=== PATIENT | female | born 1940 | race Caucasian/White ===

== ENCOUNTER 2019-08-14 11:26 | Emergency (ER) | payer MEDICARE, MEDICAID, SELFPAY ==
[2019-08-14 11:31] VITALS: BP 197/127; PULSE 72; RESP 18; TEMP 36.7; O2SAT 97; BMI 30.7
--- NOTE | 2019-08-14 11:43 | ED_ITS ---
Entered by Freya Berg, acting as scribe for Oswaldo Caballero MD, [facility] HPI - Abdominal Pain General: Chief Complaint: Abdominal Pain Stated Complaint: HTN, abd pain, nausea Time Seen by Provider: 08/14/19 11:43 Source: patient, family and RN notes reviewed Mode of arrival: ambulatory Limitations: no limitations History of Present Illness: HPI narrative: 79 yo female presents to ED with complaints of abdominal pain and nausea. Per the patient, she was seen at the [facility] clinic this morning and was sent to the ED due to her blood pressure being so high. The patient does have a headache associated with her high blood pressure (she said it has been high for 2 days). She said she woke with the abdominal pain in the middle of the night last night. The abdominal pain is now resolved but she has nausea and still has the headache. The patient states she had acid reflux so bad last month that it went into her lungs. She said she finally quit wheezing but she still had a cough so her doctor put her on antibiotics for 10 days (which she finished on 08.12.2019. The patient denies any other symptoms at this time. She took a peptobismol which relieved her abdominal pain. MD elicited complaint: abdominal pain and other (headache, nausea) Pertinent past history: other (acid reflux) Onset (ago): day(s) (1 (middle of night)) Pain Consistency: intermittent Location: Diffuse Severity: moderate Quality: aching Radiation: none Migration to: no migration Exacerbating factors: nothing Relieving factors: nothing Associated Symptoms: Reports nausea and other (headache); Denies chills, dysuria and fever(s) Related Data: Patient : No Review of Systems General: Reports: 10 or more systems reviewed and unremarkable except in HPI and below Const: Denies: fever, chills or body aches Eyes: Reports: blind spots; Denies: change in vision or blurry vision ENMT: Denies: throat pain, enlarged tonsils, painful swallowing, hoarseness, mouth pain or swelling of lips/tongue Card: Reports: chest pain; Denies: palpitations, irregular heart rhythm, edema or swelling of feet/ankles Resp: Denies: shortness of breath, productive cough or non-productive cough GI: Reports: nausea and other (headache) : Denies: flank pain, difficulty urinating, painful urination, urinary frequency, urinary urgency or urinary hesitancy Musc: Denies: neck pain, back pain or extremity swelling Skin/Breast: Denies: rash, itching or redness Neuro: Denies: numbness in extremities or weakness in extremities Endo: Denies: excessive urination, excessive thirst or tired all the time PFSH ED PFSH: Medical History (Updated 08/14/19 @ 13:50 by Oswaldo Caballero MD, [facility]) Abdominal pain Hypertensive urgency Nausea Family History (Updated 08/14/19 @ 10:07 by Rebeca Leary LPN) Son Hypertension Daughter Hypertension Social History (Updated 08/14/19 @ 10:08 by Rebeca Leary LPN) Smoking and tobacco status: never smoked Alcohol intake: never Physical Exam Const: COMMON NORMALS: no apparent distress, average body habitus, oriented x3, no limitations, healthy appearing, alert and well nourished HENMT: COMMON NORMALS: normocephalic, head/scalp atraumatic and moist oral mucous membranes HEAD & SCALP: normocephalic and atraumatic Eye: COMMON NORMALS: PERRL, EOMs intact bilaterally, conjunctivae normal and no scleral icterus CONJUNCTIVA: Yes conjunctivae normal PUPIL: Yes PERRL Neck/C-Spine: COMMON NORMALS: full ROM, supple, no meningeal signs, no JVD and no carotid bruits Chest: COMMONS NORMALS: inspection of chest normal and palpation of chest normal Resp: COMMON NORMALS: normal respiratory effort, no retractions, no use of accessory muscles, clear to auscultation bilaterally and percussion normal AUSCULTATION: clear to auscultation bilaterally PERCUSSION: percussion normal Cardio: COMMON NORMALS: no JVD, regular rate, regular rhythm, S1 normal heart sound, S2 normal heart sound, no gallops, no clicks, no murmurs, no rub and peripheral pulses 2+ throughout RATE: regular rate RHYTHM: regular rhythm HEART SOUNDS: S1 normal and S2 normal PERIPHERAL PULSES: pulses 2+ throughout GI: COMMON NORMALS: normal to inspection, nondistended, normoactive bowel sounds, soft to palpation, non-tender, no hepatosplenomegaly, no masses and no bruits PALPATION: Yes soft and Yes no hepatosplenomegaly : COMMON NORMALS: Yes no CVA tenderness BLADDER/KIDNEY EXAM: Yes no CVA tenderness Back/Pelvis: COMMON NORMALS: no CVA tenderness Extremity: COMMON NORMALS: normal to inspection, full ROM, normal capillary refill, no calf tenderness and no pedal edema Neuro: COMMON NORMALS: oriented x3 SENSORIUM/ORIENTATION: Yes alert MENINGEAL SIGNS: Yes no meningeal signs Skin: COMMON NORMALS: no rashes or lesions noted, no wounds, skin turgor normal, no jaundice, no petechiae and no mottling GENERAL SKIN EXAM: no rashes or lesions noted and turgor normal Course Reevaluation(s): Reevaluation #1: Discussed her lab and imaging findings with her. Ultrasound negative for an aneurysm. Chest x-ray negative. Labs unremarkable including a negative troponin. I explained to her elevated blood pressure was probably related to her abdominal pain which was likely gastritis. Blood pressure is much improved and I am comfortable sending her home. She voiced understanding and is in agreement with the plan. Time: 13:43 Vital Signs: Vital signs: Vital Signs Temperature 98.1 F 08/14/19 11:31 Pulse Rate 72 08/14/19 11:31 Respiratory Rate 18 08/14/19 11:31 Blood Pressure 197/127 08/14/19 11:31 Pulse Oximetry 97 08/14/19 11:31 MDM - Abdominal Pain MDM Narrative: Medical decision making narrative: 79-year-old female patient who was sent to the emergency department with concerns of a possible AAA. She had abdominal pain, epigastric, and a clinic provider heard an abdominal bruit. Evaluation here in the emergency department was unremarkable including a negative AAA ultrasound, chest x-ray, troponin and negative lipase. Blood pressure improved without intervention. I believe her blood pressure elevation was secondary to abdominal pain which itself was from GERD. I will therefore discharge her home with no new orders. She already takes a PPI. She is to follow-up with her primary care provider Medical Records: Attestation: I reviewed the patient's medical records. Lab Data: Attestation: I reviewed the patient's lab results. Labs: Lab Results 08/14/19 08/14/19 08/14/19 Range/Units 11:51 11:51 11:51 WBC 7.5 (4.0-10.0) 10^3/ uL RBC 4.27 (4.1-5.3) 10^6/u L Hgb 13.4 (11.5-15.3) g/dL Hct 39.4 (37.0-47.0) % MCV 92.3 (81-99) fL MCH 31.4 (28.0-34.0) pg MCHC 34.0 (30.0-36.0) g/dL RDW 13.3 (12.1-15.1) % Plt Count 240 (130-400) 10^3/c mm MPV 10.3 (7.4-10.4) fL Neut % (Auto) 57.1 % Lymph % (Auto) 29.8 % [place] % (Auto) 6.6 % Eos % (Auto) 6.3 % Baso % (Auto) 0.1 % Neut # (Auto) 4.3 (1.8-7.7) 10^3/u L Lymph # (Auto) 2.2 (0.8-4.8) 10^3/u L [place] # (Auto) 0.5 (0.2-0.9) 10^3/u L Eos # (Auto) 0.5 (0.0-0.8) 10^3/u L Baso # (Auto) 0.0 (0.0-0.1) 10^3/u L Nucleated RBC % (a uto) 0 % Nucleated RBCs # 0.0 /100WBC Sodium 135 L (136-145) mmol/L Potassium 4.1 (3.5-5.1) mmol/L Chloride 99 (98-107) mmol/L Carbon Dioxide 23 (22-29) mmol/L Anion Gap 17.1 (5-19) BUN 10 (8-23) mg/dL Creatinine 1.0 H (0.5-0.9) mg/dL Glucose 156 H (65-115) mg/dL Calcium 10.1 (8.5-10.5) mg/dL Total Bilirubin 0.4 (0.15-1.2) mg/dL AST 22 (0-32) U/L ALT 25 (0-33) U/L Alkaline Phosphata se 82 (35-105) IU/L Troponin T Baselin e 8 (0-10) ng/mL Total Protein 7.7 (6.6-8.7) g/dL Albumin 4.3 (3.5-5.2) g/dL Globulin 3.4 (1.3-4.6) g/dL Lipase 35 (13-60) U/L Urine Color (Yellow) Urine Appearance (CLEAR) Urine pH (5-7) Ur Specific Gravit y (1.005-1.030) Urine Protein (Negative) Urine Glucose (UA) (Normal) Urine Ketones (Negative) Urine Occult Blood (Negative) Urine Nitrate (Negative) Urine Bilirubin (NEGATIVE) Urine Urobilinogen (Negative) mg/dL Ur Leukocyte Miracle ase (Negative) 08/14/19 Range/Units 13:00 WBC (4.0-10.0) 10^3/ uL RBC (4.1-5.3) 10^6/u L Hgb (11.5-15.3) g/dL Hct (37.0-47.0) % MCV (81-99) fL MCH (28.0-34.0) pg MCHC (30.0-36.0) g/dL RDW (12.1-15.1) % Plt Count (130-400) 10^3/c mm MPV (7.4-10.4) fL Neut % (Auto) % Lymph % (Auto) % [place] % (Auto) % Eos % (Auto) % Baso % (Auto) % Neut # (Auto) (1.8-7.7) 10^3/u L Lymph # (Auto) (0.8-4.8) 10^3/u L [place] # (Auto) (0.2-0.9) 10^3/u L Eos # (Auto) (0.0-0.8) 10^3/u L Baso # (Auto) (0.0-0.1) 10^3/u L Nucleated RBC % (a uto) % Nucleated RBCs # /100WBC Sodium (136-145) mmol/L Potassium (3.5-5.1) mmol/L Chloride (98-107) mmol/L Carbon Dioxide (22-29) mmol/L Anion Gap (5-19) BUN (8-23) mg/dL Creatinine (0.5-0.9) mg/dL Glucose (65-115) mg/dL Calcium (8.5-10.5) mg/dL Total Bilirubin (0.15-1.2) mg/dL AST (0-32) U/L ALT (0-33) U/L Alkaline Phosphata se (35-105) IU/L Troponin T Baselin e (0-10) ng/mL Total Protein (6.6-8.7) g/dL Albumin (3.5-5.2) g/dL Globulin (1.3-4.6) g/dL Lipase (13-60) U/L Urine Color Straw (Yellow) Urine Appearance Clear (CLEAR) Urine pH 7 (5-7) Ur Specific Gravit y 1.000 L (1.005-1.030) Urine Protein Neg (Negative) Urine Glucose (UA) Norm (Normal) Urine Ketones Negative (Negative) Urine Occult Blood Neg (Negative) Urine Nitrate Negative (Negative) Urine Bilirubin Neg (NEGATIVE) Urine Urobilinogen Norm (Negative) mg/dL Ur Leukocyte Miracle ase Negative (Negative) Imaging Data ^: CXR: Radiologist's impression: [place] [address] XRay Report Signed Patient: Jovany Fair #: [id number] : 1940cct#:[id number] Age/Sex: 79 / FADM Date: 08/14/19 Loc: [facility]/Bed: Attending Dr: Ordering Provider/Ordering MD: Oswaldo Caballero MD, [facility] Date of Service: 08/14/19 Procedure(s): XR chest 1V portable [id number] Accession Number(s): [id number] Report Number: [id number] WS: [id number] XR chest 1V portable [id number] REASON FOR EXAM: epigastric pain FINDINGS: Scarring in the right middle lobe. The heart is not enlarged. The lung toscano are well aerated no pneumonia, pleural effusion, pulmonary edema, or mass effect. XR/XR chest 1V portable [id number] IMPRESSION: No active cardiopulmonary changes Dictated By:Campos Montez DO Signed By:Campos Montez DOSigned Date/Time:08/14/19 1207 DD/ EKG Data ^: EKG 1: Attestation: I personally reviewed and interpreted this EKG as follows: EKG interpretation date: 08/14/19 EKG interpretation time: 11:51 Prior EKG tracings: not available for review Interpretation: Normal sinus rhythm. Heart rate 76. No ST changes. Discharge Plan Discharge Patient Disposition: Home, Self-Care Clinical Impression: Hypertensive urgency Gastritis Qualifiers: Gastritis type: unspecified gastritis Chronicity: acute Gastritis bleeding: without bleeding Qualified Code(s): K29.00 - Acute gastritis without bleeding Condition: Stable Prescriptions: Continued propranolol 80 mg capsule,extended release 24hr 80 mg PO BEDTIME RF: 0 losartan 100 mg tablet 100 mg PO DAILY RF: 0 insulin glargine 100 unit/mL cartridge 26 unit SUBCUT BID RF: 0 rosuvastatin [Crestor] 10 mg tablet 5 mg PO DAILY RF: 0 levothyroxine [Synthroid] 50 mcg tablet 125 mcg PO DAILY RF: 0 multivitamin Tablet 1 tab PO DAILY RF: 0 naproxen sodium [Aleve] 220 mg Tablet 440 mg PO BID PRN (Reason: Pain) RF: 0 amoxicillin-pot clavulanate 875-125 mg Tablet 1 tab PO Q12H RF: 0 Vitamin D3 25 mcg (1,000 unit) Tablet 1,000 unit PO DAILY RF: 0 omeprazole 20 mg Tablet,Delayed Release (Dr/Ec) 20 mg PO DAILY RF: 0 Fish Oil 1,000 mg (120 mg-180 mg) Capsule 1 cap PO DAILY RF: 0 Victoza 2-Dale 0.6 mg/0.1 mL (18 mg/3 mL) Pen Injector 1.8 mg SUBCUT DAILY RF: 0 trazodone 100 mg PO BEDTIME RF: 0 Discharge Orders: Discharge Order (Routine); Ordered 08/14/19 Ordered By: Oswaldo Caballero Patient Instructions: Gastritis (ED), Hypertension (ED) Activity Restrictions/Additional Instructions: Return for any new or worsening symptoms. Follow-up with your primary care provider within 3 days. Avoid spicy foods, acidic foods, greasy foods. These may worsen your acid reflux. Continue your current medications. Coding Level of Care Code ED Filling Machine Set Up Mechanic for Chg Fwd Exam Comprehensive The documentation recorded by the Morena ramírez Valerie R, accurately reflects the service I personally performed and the decisions made by Ada uribe Adegoke I, MD, [facility] Aug 14, 2019 11:26
--- NOTE | 2019-08-14 11:55 | USCV_ITS ---
Dada Fair Age: 79 Gender: F : 1940 Exam Date: 08/14/2019 12:23 Ordering Phys: Oswaldo Caballero MD [facility] Technologist: John Moncada Exam Location: [facility] [place] [place] Indication: ? AAA BRUIT HISTORY: Diameter (cm) AP x Transverse x Length Velocity (cm/s) Waveform Prox Aorta: 2.60 x 2.22 x 62.30 Biphasic Mid Aorta: 1.84 x 1.28 x 81.10 Biphasic Distal Aorta: 1.36 x 1.48 x 49.90 Biphasic Right Iliac Prox: 1.34 x 1.43 x 45.00 Biphasic Left Iliac Prox: 1.54 x 1.24 x 45.00 Biphasic Stent Prox Landing x x Aneurysmal Sac Max x x Lt Lat Sac Dim Rt Lat Sac Dim Stent Dist Landing x x Right Iliac Stent x x Left Iliac Stent x x Right Renal Art Left Renal Art FINDINGS: Normal abdominal aortic dimensions Normal proximal common iliac artery dimensions No evidence of aneurysm Normal Doppler flow velocities CONCLUSIONS Normal abdominal aortic dimensions with no evidence of aneurysm Normal proximal common iliac artery dimensions with no evidence of aneurysm No significant stenosis in these vessels, based on the Doppler flow velocities The renal arteries were not visualized Dr Juliana Gilbert MD [facility] (Electronically Signed) Final Date: 16 August 2019 09:54 S
--- NOTE | 2019-08-14 11:55 | XR_ITS ---
WS: [id number] XR chest 1V portable [id number] REASON FOR EXAM: epigastric pain FINDINGS: Scarring in the right middle lobe. The heart is not enlarged. The lung toscano are well aerated no pneumonia, pleural effusion, pulmonary edema, or mass effect. XR/XR chest 1V portable [id number] IMPRESSION: No active cardiopulmonary changes
--- NOTE | 2019-08-14 11:57 | ECG_ITS ---
Measurements Intervals [place] Rate: 76 P: 35 NV: 176 QRS: -45 QRSD: 95 T: -4 QT: 388 QTc: 436 SINUS RHYTHM LOW QRS VOLTAGE IN PRECORDIAL LEADS [QRS DEFLECTION < 1.0 mV IN CHEST LEADS] LEFT ANTERIOR FASCICULAR BLOCK [QRS AXIS <= -45, QR IN I, RS IN II] POSSIBLE ANTERIOR MYOCARDIAL INFARCTION , OF INDETERMINATE AGE [30 ms Q WAVE IN V3 V3/V4, OR R < 0.2 mV IN V4] No previous ECG available for comparison Electronically Signed On 08-14-2019 14:26:38 SPAR CAP BEVELER by Gorge Tellez M.D. [id number] victor manuel
[2019-08-14 12:15] LABS: Basophils % 0.1 %; Eosinophils # 0.5 10^3/uL (0.0-0.8); Eosinophils % 6.3 %; Hematocrit 39.4 % (37.0-47.0); Hemoglobin 13.4 g/dL (11.5-15.3); Lymphocytes # 2.2 10^3/uL (0.8-4.8); Lymphocytes % 29.8 %; Mean Corpuscular Hemoglobin 31.4 pg (28.0-34.0); Mean Corpuscular Volume 92.3 fL (81-99); Mean Platelet Volume 10.3 fL (7.4-10.4); Monocytes # 0.5 10^3/uL (0.2-0.9); Monocytes % 6.6 %; Neutrophils # 4.3 10^3/uL (1.8-7.7); Neutrophils % 57.1 %; Nucleated Red Blood Cells % 0 %; Platelet Count 240 10^3/cmm (130-400); Red Blood Count 4.27 10^6/uL (4.1-5.3); Red Cell Distribution Width 13.3 % (12.1-15.1); White Blood Count 7.5 10^3/uL (4.0-10.0)
[2019-08-14 12:29] LABS: Alanine Aminotransferase 25 U/L (0-33); Albumin Level 4.3 g/dL (3.5-5.2); Alkaline Phosphatase 82 IU/L (35-105); Anion Gap 17.1 (5-19); Aspartate Amino Transferase 22 U/L (0-32); Blood Urea Nitrogen 10 mg/dL (8-23); Calcium 10.1 mg/dL (8.5-10.5); Carbon Dioxide 23 mmol/L (22-29); Chloride 99 mmol/L (98-107); Globulin 3.4 g/dL (1.3-4.6); Glucose 156 mg/dL (65-115); Lipase 35 U/L (13-60); Potassium 4.1 mmol/L (3.5-5.1); Sodium 135 mmol/L (136-145); Total Bilirubin 0.4 mg/dL (0.15-1.2); Total Protein 7.7 g/dL (6.6-8.7)
[2019-08-14 12:33] LABS: Troponin(5th) Baseline 8 ng/mL (0-10)
--- NOTE | 2019-08-14 12:35 | PC.NURSE ---
US IN ROOM TO LOOK FOR ANEURISM PATIENT TOLERATED WELL
--- NOTE | 2019-08-14 12:58 | PC.NURSE ---
PATIENT UP TO RESTROOM WITH ASSIST
[2019-08-14 13:14] LABS: Add Urine Microscopic? NO
[2019-08-14 13:26] LABS: Bilirubin Urine Neg (NEGATIVE); Blood Urine Neg (Negative); Glucose Urine UA Norm (Normal); Ketones Urine Negative (Negative); Leukocyte Esterase Urine Negative (Negative); Nitrate Urine Negative (Negative); Protein Urine Neg (Negative); Urine Appearance Clear (CLEAR); Urine Color Straw (Yellow); Urobilinogen Urine Norm (Negative); pH Urine 7 (5-7)
[2019-08-14 14:00] VITALS: BP 149/82; PULSE 75; RESP 20; O2SAT 96
== END 2019-08-14 14:02 | disposition home or self-care (01) ==
PROVIDERS: Emergency Provider Family Medicine
DX: I16.0 Hypertensive urgency (principal); K29.70 Gastritis, unspecified, without bleeding
CPT/HCPCS: 71045; 76706; 80053; 81003; 83690; 84484; 85025; 93005; 96374; 99283; 99284; A9270

== ENCOUNTER → 2023-03-14 13:51 | Outpatient (BNVA) | payer MEDICARE, MEDICAID, SELFPAY | PROVIDERS: Visit Provider Emergency Medicine | DX: M25.511 Pain in right shoulder (principal); M85.821 Other specified disorders of bone density and structure, right upper arm | CPT/HCPCS: 73030 ==

== ENCOUNTER → 2023-03-22 11:34 | Outpatient (BNVA) | payer MEDICARE, MEDICAID, SELFPAY | PROVIDERS: PCP Family Medicine; Visit Provider Nurse Practitioner Family | DX: R68.89 Other general symptoms and signs (principal); Z20.822 Contact with and (suspected) exposure to COVID-19 | CPT/HCPCS: 87426 ==

== ENCOUNTER 2023-10-06 19:00 | Emergency (ER) | payer MEDICARE, MEDICAID, SELFPAY ==
--- NOTE | 2023-10-06 19:03 | ECG_ITS ---
[facility] Test Date: 2023-10-06 Pat Name: Geronimo Fair Department: Room: Gender: Female [employer]: : 1940 Requested By: Adrien Ocasio Order Number: [id number] Elias MD: Juliana Gilbert M.D. Measurements Intervals [place] Rate: 52 P: 57 RI: 196 QRS: -42 QRSD: 94 T: 19 QT: 429 QTc: 400 Interpretive Statements SINUS BRADYCARDIA WITH SINUS ARRHYTHMIA LEFT AXIS DEVIATION [QRS AXIS < -30] POSSIBLE ANTERIOR MYOCARDIAL INFARCTION , OF INDETERMINATE AGE [30 ms Q WAVE IN V3/V4, OR R < 0.2 mV IN V4] Compared to ECG 08/14/2019 11:50:35 Left-axis deviation now present Sinus rhythm no longer present Left anterior fascicular block no longer present Myocardial infarct finding still present Electronically Signed On 10-07-2023 21:19:21 CDT by Juliana Gilbert M.D. [id number] f
[2023-10-06 19:07] VITALS: RESP 18; TEMP 36.6
--- NOTE | 2023-10-06 19:08 | XRR_ITS ---
PROCEDURE INFORMATION: Exam: XR Chest Exam date and time: 10/06/2023 7:25 PM Age: 83 years old Clinical indication: Pain; Chest pressure; Additional info: Cp TECHNIQUE: Imaging protocol: Radiologic exam of the chest. Views: 1 view. COMPARISON: CR XR chest 1V portable [id number] 08/14/2019 11:58 AM FINDINGS: Lungs: No focal consolidation. Pleural spaces: No evidence of pneumothorax. No evidence of pleural effusion. Heart/Mediastinum: Cardiomediastinal silhouette is within normal limits. Bones/joints: No evidence of acute osseous abnormality. XR/XR chest 1V portable [id number] IMPRESSION: 1. No acute cardiopulmonary abnormality.
--- NOTE | 2023-10-06 19:18 | ED_ITS ---
HPI - Chest Pain 2 General: Chief Complaint: Chest Pain Stated Complaint: cp today, pcp sent for heart attack Time Seen by Provider: 10/06/23 19:18 History of Present Illness: 83-year-old female presents to the emerg ency department after seeing her primary care provider earlier today. Patient states that she is had exertional dyspnea worsening over the previous 2 weeks and today approximately 1500 she was taking her trash cans out and walked about 150 feet and started having shortness of breath and left-sided chest pain. She states the chest pain is a pressure type pain that is worse with exertion. She states she has become increasingly more short of breath over the past several weeks. Review of Systems 2 General: Reports: 10 or more systems reviewed and unremarkable except in HPI and below Card: Reports: chest pain and dyspnea on exertion [facility] ED 2 PFSH: Medical History Abdominal pain Hypertensive urgency Nausea Family History Son Hypertension Daughter Hypertension Social History Smoking and tobacco/nicotine status: never used tobacco/nicotine Alcohol intake: never Substance/Drug Use: never Physical Exam 2 Narrative: EXAM NARRATIVE: Constitutional: the patient appears well nourished and with normal development. Vital signs reviewed as documented. HENMT: Normocephalic, atraumatic. External ears normal appearance without drainage. Nose without drainage, normal appearance. Mucus membranes moist. Neck is supple, No jugular venous distension, trachea is midline, no appreciable carotid bruits. No lymphadenopathy. No meningeal signs. Flexion, extension and lateral rotation is without pain. Eyes: Pupils are equal, round, reactive to light and accommodation. No scleral icterus. Extra-ocular movement are intact. Thorax is symmetrical and with equal rise and fall with respirations. Resp: Lungs are clear to auscultation. No wheezes, rales, crackles or ronchi at present. Cardio: Regular rate and rhythm. Positive S1, S2. No appreciable murmurs, rubs or gallops. GI: Abdominal exam reveals normal bowel sounds to all quadrants. No organomegaly. No obvious palpable masses noted. No hepatomegally appreciated. Soft, non-tender to palpation. Extremity: Extremities are non-edematous and both femoral and pedal pulses are 2+ and equal bilaterally. Moves all extremities well, sensation in all extremities. Neuro: Alert and oriented x4, person, place, time and situation. Cranial nerves II through XII are grossly intact, there is no focal neurological deficits that I can appreciate at present. Sensation intact to all extremities. 2-point discrimination intact. Light touch intact to all extremities. Motor strength in the upper and lower extremities are equal and bilateral 5/5. Psych: Cooperative, calm, normal thought process, appropriate judgment. Skin: No lesions, rashes. No gross abnormalities noted. Back: Symmetrical, no obvious deformity, No CVA tenderness Course 2 Vital Signs: Vital signs: Vital Signs Temperature 97.8 F 10/07/23 02:05 Pulse Rate 57 L 10/07/23 02:05 Respiratory Rate 16 10/07/23 02:05 Blood Pressure 143/78 10/07/23 02:05 Pulse Oximetry 95 10/07/23 02:05 Oxygen Delivery Me thod Room Air 10/06/23 20:11 MDM - Chest Pain Medical Decision Making Physical exam completed and documented, I will obtain serial cardiac enzymes, serial twelve-lead EKGs, chest x-ray, CBC, CMP, urinalysis, B-type natriuretic peptide, PT/PTT/INR, and a chest x-ray. I have reviewed previous and pertinent medical records for assist in obtaining beneficial medical information to improved the care and treatment of the patient. Medical Records I reviewed the patient's medical records. Lab Data I reviewed the patient's lab results. 10/06/23 19:19 10/06/23 19:19 Radiology Impressions Chest X-Ray 10/06/23 19:08 IMPRESSION: 1. No acute cardiopulmonary abnormality. Chest CTA 10/06/23 23:25 IMPRESSION: 1. No evidence of pulmonary embolus in the visualized large central pulmonary arteries. Motion artifact and technical factors limit evaluation of the segmental and subsegmental branches. 2. Diffuse nonspecific ground-glass opacities and mosaic attenuation. Differential considerations include but are not limited to viral pneumonitis, hypersensitivity pneumonitis, small airways disease, edema. Laboratory Results WBC 6.83 10^3/uL (3.29-11.43) 10/06/23 19:19 RBC 4.55 10^6/uL (3.85-5.65) 10/06/23 19:19 Hgb 14.60 g/dL (11.27-16.99) 10/06/23 19:19 Hct 43.1 % (36-47) 10/06/23 19:19 MCV 94.7 fl (85-98) 10/06/23 19:19 MCH 32.1 pg (27-33) 10/06/23 19:19 MCHC 33.9 g/dL (30-55) 10/06/23 19:19 RDW 13.0 % (12.1-15.1) 10/06/23 19:19 Plt Count 218 10^3/cmm (157-399) 10/06/23 19:19 MPV 9.6 fL (7.4-10.4) 10/06/23 19:19 Neut % (Auto) 46.6 % 10/06/23 19:19 Lymph % (Auto) 42.0 % 10/06/23 19:19 Gilliam % (Auto) 7.9 % 10/06/23 19:19 Eos % (Auto) 3.1 % 10/06/23 19:19 Baso % (Auto) 0.3 % 10/06/23 19:19 Neut # (Auto) 3.18 10^3/uL (1.8-7.7) 10/06/23 19:19 Lymph # (Auto) 2.9 10^3/uL (0.8-4.8) 10/06/23 19:19 Gilliam # (Auto) 0.5 10^3/uL (0.2-0.9) 10/06/23 19:19 Eos # (Auto) 0.2 10^3/uL (0.0-0.8) 10/06/23 19:19 Baso # (Auto) 0.0 10^3/uL (0.0-0.1) 10/06/23 19:19 Nucleated RBC % (auto) 0 % 10/06/23 19:19 Nucleated RBCs # 0.0 /100WBC 10/06/23 19:19 PT 12.90 SECONDS (12.1-14.9) 10/06/23 19:19 INR 0.95 (0.8-1.2) 10/06/23 19:19 D-Dimer 1.03 ug/mLFEU (0-0.59) H 10/06/23 19:19 Sodium 137 mmol/L (136-145) 10/06/23 19:19 Potassium 4.1 mmol/L (3.5-5.1) 10/06/23 19:19 Chloride 103 mmol/L (98-107) 10/06/23 19:19 Carbon Dioxide 21 mmol/L (22-29) L 10/06/23 19:19 Anion Gap 17.1 (5-19) 10/06/23 19:19 BUN 14 mg/dL (8-23) 10/06/23 19:19 Creatinine 0.9 mg/dL (0.5-0.9) 10/06/23 19:19 GFR Calculation Not Reportable 10/06/23 19:19 Glucose 132 mg/dL (65-115) H 10/06/23 19:19 Calculated Osmolality 286 mOsm/kg (285-295) 10/06/23 19:19 Calcium 9.4 mg/dL (8.5-10.5) 10/06/23 19:19 Total Bilirubin 0.4 mg/dL (0.15-1.2) 10/06/23 19:19 AST 18 U/L (0-32) 10/06/23 19:19 ALT 24 U/L (0-33) 10/06/23 19:19 Alkaline Phosphatase 83 U/L (35-105) 10/06/23 19:19 Troponin T Baseline 18 ng/L (0-10) H 10/06/23 19:19 Troponin T 120 Minute 21.83 ng/L (0-10) H 10/06/23 21:24 Delta Troponin T 3.83 ABS# (0-10) 10/06/23 21:24 Total Protein 7.2 g/dL (6.6-8.7) 10/06/23 19:19 Albumin 4.2 g/dL (3.5-5.2) 10/06/23 19:19 Globulin 3.0 g/dL (1.3-4.6) 10/06/23 19:19 Lipase 50 U/L (13-60) 10/06/23 19:19 Urine Color Yellow (Yellow) 10/06/23 20:24 Urine Appearance Hazy (CLEAR) A 10/06/23 20:24 Urine pH 7 (5-7) 10/06/23 20:24 Ur Specific [place] 1.010 (1.005-1.030) 10/06/23 20:24 Urine Protein Neg (Negative) 10/06/23 20:24 Urine Glucose (UA) Norm (Normal) 10/06/23 20:24 Urine Ketones Negative (Negative) 10/06/23 20:24 Urine Blood Neg (Negative) 10/06/23 20:24 Urine Nitrate Negative (Negative) 10/06/23 20:24 Urine Bilirubin Neg (Negative) 10/06/23 20:24 Urine Urobilinogen Neg mg/dL (Negative) 10/06/23 20:24 Ur Leukocyte Esterase 1+ (Negative) H 10/06/23 20:24 Urine RBC None /hpf (0-2) 10/06/23 20:24 Urine WBC 5-10 /hpf (0-5) H 10/06/23 20:24 Ur Squamous Epith Cells None /hpf (0-5) 10/06/23 20:24 Amorphous Sediment Not Reportable 10/06/23 20:24 Urine Bacteria 4+ /hpf (NONE) H 10/06/23 20:24 All radiology interpretation(s) finalized by discharge Discharge Plan Discharge Patient Disposition: Home Clinical Impression: Atypical chest pain, MOTA (dyspnea on exertion), Viral upper respiratory illness, Urinary tract infection Condition: Stable Prescriptions: New albuterol sulfate 90 mcg/actuation HFA aerosol inhaler 2 inh inhalation Q6H PRN (Reason: shortness of breath or wheezing) Qty: 8.5 0RF No Action propranolol 80 mg capsule,extended release 24hr 80 mg PO BEDTIME losartan 100 mg tablet 100 mg PO QAM alprazolam 0.25 mg tablet 0.5 mg PO BEDTIME pantoprazole 40 mg tablet,delayed release (DR/EC) 40 mg PO QPM Aspir-81 81 mg Tablet,Delayed Release (Dr/Ec) 81 mg PO QAM acetaminophen [Tylenol Ex Str Rapid Release] 500 mg Tablet 1,000 mg PO Q6H PRN (Reason: Pain) Synthroid 150 mcg tablet 150 mcg PO QAM rosuvastatin 5 mg tablet 5 mg PO BEDTIME Lantus Solostar U-100 Insulin 100 unit/mL (3 mL) insulin pen 48 unit SUBCUT QAM Aspercreme Arthritis Pain 1 % Gel 2 g TOPICAL QID PRN (Reason: Pain) Rx Instructions: apply to single elbow, wrist or hand; for hand includes palm/fingers/back of hand PreserVision AREDS-2 250-90-40-1 mg Capsule 1 tab PO BID Ozempic 2 mg/dose (8 mg/3 mL) pen injector 2 mg SUBCUT Q7D Rx Instructions: on fri Discharge Orders: Discharge ED (Routine); Ordered 10/07/23 Ordered By: Sriram Boudreaux Referrals: Emily Hinojosa MD [Primary Care Provider] - Discharge Diet: Usual diet Discharge Activity: Resume usual activity Patient Instructions: Opioid Safety, Pain Management Activity Restrictions/Additional Instructions: Activity Restrictions/Additional Instructions: Thank you for choosing [facility] for your healthcare needs today. Please realize that you were seen in the Emergency Department and that we are providing you with an emergency medical screening exam and this may not be a complete and all inclusive of all the testing and or medical work-up that you may need to determine your ailment or severity of your illness. It is very important that you follow-up as instructed with your Primary care provider or Specialist for additional evaluation and to discuss your medical treatment plan. You may return to the Emergency Department should you have concerns or if your condition changes or worsens in any way. Coding Level of Care Code ED Assistant Press Operator Offset for Stacey [place]
--- NOTE | 2023-10-06 19:18 | PC.NURSE ---
Pt on bedside court monitor
[2023-10-06 19:31] LABS: Basophils % 0.3 %; Eosinophils # 0.2 10^3/uL (0.0-0.8); Eosinophils % 3.1 %; Hematocrit 43.1 % (36-47); Lymphocytes # 2.9 10^3/uL (0.8-4.8); Mean Corpuscular HGB Conc 33.9 g/dL (30-55); Mean Corpuscular Hemoglobin 32.1 pg (27-33); Mean Corpuscular Volume 94.7 fl (85-98); Mean Platelet Volume 9.6 fL (7.4-10.4); Monocytes # 0.5 10^3/uL (0.2-0.9); Monocytes % 7.9 %; Neutrophils # 3.18 10^3/uL (1.8-7.7); Neutrophils % 46.6 %; Nucleated Red Blood Cells % 0 %; Platelet Count 218 10^3/cmm (157-399); Red Blood Count 4.55 10^6/uL (3.85-5.65); White Blood Count 6.83 10^3/uL (3.29-11.43)
[2023-10-06 19:47] LABS: INR 0.95 (0.8-1.2)
[2023-10-06 19:50] LABS: Troponin(5th) Baseline 18 ng/L (0-10)
[2023-10-06 19:51] LABS: Alanine Aminotransferase 24 U/L (0-33); Albumin Level 4.2 g/dL (3.5-5.2); Alkaline Phosphatase 83 U/L (35-105); Anion Gap 17.1 (5-19); Aspartate Amino Transferase 18 U/L (0-32); Blood Urea Nitrogen 14 mg/dL (8-23); Calcium 9.4 mg/dL (8.5-10.5); Carbon Dioxide 21 mmol/L (22-29); Chloride 103 mmol/L (98-107); Glucose 132 mg/dL (65-115); Lipase 50 U/L (13-60); Osmolality Calculated 286 mOsm/kg (285-295); Potassium 4.1 mmol/L (3.5-5.1); Sodium 137 mmol/L (136-145); Total Protein 7.2 g/dL (6.6-8.7)
[2023-10-06 20:10] LABS: Total Bilirubin 0.4 mg/dL (0.15-1.2)
[2023-10-06 20:11] VITALS: BP 177/102; PULSE 59; RESP 16; O2SAT 97
[2023-10-06 20:36] LABS: Add Urine Microscopic? YES; Bilirubin Urine Neg (Negative); Blood Urine Neg (Negative); Glucose Urine UA Norm (Normal); Ketones Urine Negative (Negative); Leukocyte Esterase Urine 1+ (Negative); Nitrate Urine Negative (Negative); Protein Urine Neg (Negative); Urine Appearance Hazy (CLEAR); Urine Color Yellow (Yellow); Urobilinogen Urine Neg (Negative); pH Urine 7 (5-7)
[2023-10-06 20:37] LABS: Add Urine Culture? Yes; Bacteria Urine 4+ /hpf
--- NOTE | 2023-10-06 21:08 | ECG_ITS ---
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 Measurements Intervals [place] Rate: 58 P: 46 ND: 198 QRS: -41 QRSD: 100 T: -8 QT: 446 QTc: 438 Interpretive Statements SINUS BRADYCARDIA POSSIBLE LEFT ATRIAL ENLARGEMENT [-0.1mV P-WAVE IN V1/V2] LEFT AXIS DEVIATION [QRS AXIS < -30] POSSIBLE LEFT VENTRICULAR HYPERTROPHY [VOLTAGE CRITERIA PLUS LAE OR QRS WIDENING] POSSIBLE ANTERIOR MYOCARDIAL INFARCTION , OF INDETERMINATE AGE [30 ms Q WAVE IN V3/V4, OR R < 0.2 mV IN V4] Compared to ECG 08/14/2019 11:50:35 Left-axis deviation now present Sinus rhythm no longer present Left anterior fascicular block no longer present Myocardial infarct finding still present Electronically Signed On 10-07-2023 21:24:14 CDT by Juliana Gilbert M.D. [id number]
[2023-10-06 21:45] LABS: Troponin 5 2HR 21.83 ng/L (0-10); Troponin 5 2HR Delta 3.83 ABS# (0-10)
--- NOTE | 2023-10-06 23:25 | CTR_ITS ---
PROCEDURE INFORMATION: Exam: CTA Chest With Contrast Exam date and time: 10/06/2023 11:56 PM Age: 83 years old Clinical indication: Abnormal findings; Abnormal diagnostic tests; Elevated d-dimer; Patient HX: Dyspnea with dimer 1.08; Additional info: Dyspnea on exertion TECHNIQUE: Imaging protocol: Computed tomographic angiography of the chest with contrast. Exam focused on the arteries. 3D rendering (Not supervised by radiologist): MIP and/or 3D reconstructed images were created by the technologist. Radiation optimization: All CT scans at this facility use at least one of these dose optimization techniques: automated exposure control; mA and/or kV adjustment per patient size (includes targeted exams where dose is matched to clinical indication); or iterative reconstruction. Contrast material: OMNI 350; Contrast volume: 61 ml; Contrast route: INTRAVENOUS (IV); COMPARISON: CR (CHEST, ) 10/06/2023 7:25 PM RADIATION DOSE METRICS: Total DLP (mGy-cm): 442.07 FINDINGS: Pulmonary arteries: There is no evidence of pulmonary embolus in the large central pulmonary arteries. Evaluation of segmental and subsegmental branches is limited by motion artifact and technical factors. Aorta: There is no thoracic aortic aneurysm. Lungs: No pulmonary consolidation. Diffuse nonspecific ground-glass opacities and mosaic attenuation. Pleural spaces: Unremarkable. No pneumothorax. No pleural effusion. Heart: The heart is normal in size. There are no pericardial fluid collections. Coronary arteries: There is moderate atherosclerotic calcification of the coronary arteries. Lymph nodes: Multiple nonenlarged and borderline prominent mediastinal hilar lymph nodes are present as large as 10 mm in short dimension. Diaphragm: There is a small sliding hiatal hernia. Bones/joints: No acute fracture.Multilevel degenerative disc disease without significant spinal canal stenosis. Moderate dextroconvex rotoscoliosis of the thoracolumbar spine. Soft tissues: Unremarkable. CT/CT angio chest PE protcl [id number] IMPRESSION: 1. No evidence of pulmonary embolus in the visualized large central pulmonary arteries. Motion artifact and technical factors limit evaluation of the segmental and subsegmental branches. 2. Diffuse nonspecific ground-glass opacities and mosaic attenuation. Differential considerations include but are not limited to viral pneumonitis, hypersensitivity pneumonitis, small airways disease, edema.
[2023-10-06 23:48] LABS: D Dimer 1.03 ug/mLFEU (0-0.59)
[2023-10-07] MEDS: iohexol 350 mg/mL 500 mL Btl (per mL) IV (00:05)
[2023-10-07] MEDS: cefTRIAXone 1,000 MG in sodium chloride 0.9% (plus) 50 ML 100 MG IV (00:08)
[2023-10-07 00:41] VITALS: BP 143/78; PULSE 55; RESP 16; O2SAT 98
[2023-10-07] MEDS: dexamethasone 10 mg/mL INJ IVP (01:36)
[2023-10-07 01:40] VITALS: PULSE 57; RESP 16; O2SAT 95
[2023-10-07 02:05] VITALS: BP 143/78; PULSE 57; RESP 16; TEMP 36.6; O2SAT 95
== END 2023-10-07 02:06 | disposition home or self-care (01) ==
PROVIDERS: Emergency Medicine; Emergency Provider Internal Medicine; PCP Family Medicine
DX: J06.9 Acute upper respiratory infection, unspecified (principal); N39.0 Urinary tract infection, site not specified; R07.89 Other chest pain; R06.00 Dyspnea, unspecified; Z79.82 Long term (current) use of aspirin; Z79.4 Long term (current) use of insulin; R07.9 Chest pain, unspecified
CPT/HCPCS: 36415; 36600; 71045; 71275; 80051; 80053; 81001; 82330; 82805; 83690; 84484; 85025; 85378; 85610; 87077; 87086; 87186; 93005; 96374; 96375; 99285; J0696; J1100; Q9967

== ENCOUNTER 2023-10-07 08:58 | Emergency (ER) | payer MEDICARE, MEDICAID, SELFPAY ==
[2023-10-07] VITALS (42 sets, daily range): BP systolic 116–173; BP diastolic 83–118; PULSE 73–84; RESP 14–26; TEMP 36.5; O2SAT 90–97
--- NOTE | 2023-10-07 09:17 | XR_ITS ---
WS: [id number] PORTABLE CHEST HISTORY: Chest pain COMPARISON: 10/06/2023 Lung volumes are decreased. Bilateral pulmonary interstitial thickening and prominent reticulations. No dense consolidation or nodule. No pleural effusion or pneumothorax. Cardiac size: Normal. Mediastinum/Aorta: Mild atherosclerosis aorta. No osseous abnormality seen. IMPRESSION: 1. New interstitial thickening throughout both lungs. Suspect mild pneumonitis or venous congestion. 2. No pneumonia or dense consolidation.
--- NOTE | 2023-10-07 09:18 | ECG_ITS ---
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 Measurements Intervals [place] Rate: 78 P: 66 NM: 194 QRS: -68 QRSD: 94 T: 60 QT: 413 QTc: 472 Interpretive Statements SINUS RHYTHM LEFT ANTERIOR FASCICULAR BLOCK [QRS AXIS <= -45, QR IN I, RS IN II] POSSIBLE ANTERIOR MYOCARDIAL INFARCTION , PROBABLY OLD [30 ms Q WAVE IN V3/V4, OR R < 0.2 mV IN V4] Compared to ECG 10/06/2023 21:00:58 Left anterior fascicular block now present Sinus bradycardia no longer present Left-axis deviation no longer present Myocardial infarct finding still present Electronically Signed On 10-07-2023 21:20:28 CDT by Juliana Gilbert M.D. [id number]
--- NOTE | 2023-10-07 09:19 | W.ED.CHESTPA ---
HPI - Chest Pain General: Chief Complaint: Chest Pain Stated Complaint: chest pain, neck pain Time Seen by Provider: 10/07/23 09:08 History of Present Illness: 83-year-old female with history of hypertension and diabetes who presents to the emergency room with chest pain. Apparently she was here overnight and had a CT scan of her chest done. She was diagnosed with a urinary tract infection and an upper respiratory infection and sent home on steroids and antibiotics. Says her blood pressure was elevated this morning her sugar was elevated as well. She states understanding of this is likely due to her receiving steroids. She says she woke this morning about 6 AM, 3 hours ago with bilateral upper chest pain that went into her neck bilaterally. This is since improved. She is chest pain-free on presentation. She has had some cough. She is not short of breath at this time. No nausea or vomiting. No altered mental status. Review of Systems Narrative: Constitutional symptoms: Negative except as documented in HPI. Skin symptoms: Negative except as documented in HPI. Eye symptoms: Negative except as documented in HPI. ENMT symptoms: Negative except as documented in HPI. Respiratory symptoms: Negative except as documented in HPI. Cardiovascular symptoms: Negative except as documented in HPI. Gastrointestinal symptoms: Negative except as documented in HPI. Genitourinary symptoms: Negative except as documented in HPI. Musculoskeletal symptoms: Negative except as documented in HPI. Neurologic symptoms: Negative except as documented in HPI. Psychiatric symptoms: Negative except as documented in HPI. Endocrine symptoms: Negative except as documented in HPI. [facility] ED PFSH: Medical History Abdominal pain Hypertensive urgency Nausea Family History Son Hypertension Daughter Hypertension Social History Smoking and tobacco/nicotine status: never used tobacco/nicotine Alcohol intake: never Substance/Drug Use: never Physical Exam Narrative: EXAM NARRATIVE: General: Alert, no acute distress. Skin: Warm, dry. Head: Normocephalic, atraumatic. Neck: Supple, trachea midline. Eye: Extraocular movements are intact. Ears, nose, mouth and throat: mucosa moist. Cardiovascular: Regular, Normal peripheral perfusion. Respiratory: Lungs are clear to auscultation, respirations are non-labored, breath sounds are equal, Symmetrical chest wall expansion. Gastrointestinal: Soft, Nontender, Non distended, Normal bowel sounds. Musculoskeletal: Normal ROM, no deformity. Neurological: Alert and oriented, No focal neurological deficit observed. Psychiatric: Cooperative, appropriate mood & affect. Course Vital Signs: Vital signs: Vital Signs Temperature 97.7 F 10/07/23 09:09 Pulse Rate 80 10/07/23 12:10 Respiratory Rate 24 H 10/07/23 12:10 Blood Pressure 150/94 10/07/23 12:10 Pulse Oximetry 97 10/07/23 12:10 Oxygen Delivery Me thod Room Air 10/07/23 12:05 Oxygen Flow Rate 4 10/07/23 11:15 MDM - Chest Pain Medical Decision Making Differential diagnosis for patient with chest pain includes but is not limited to and based on the above HPI, review of systems and physical exam: Pneumonia. unstable angina. angina. Acute coronary syndrome / [place]. Pulmonary embolism. Costochondritis / musculoskeletal. Pleurisy. Pericarditis. Esophageal spasm. Pancreatis. Cholecystitis. Workup: Lab work, chest X-ray and EKG ordered to evaluate, rule in and rule out above pathologies. Lab Review: Laboratory results were reviewed and interpreted by myself the emergency room physician. Lab work is unremarkable. She does have a bit of some hyperglycemia with a glucose of 320. No leukocytosis. BUN and creatinine are 14 and 0.8. Serial cardiac enzymes are negative. EKG: Time 9:03 AM rate 78 normal sinus rhythm, No ST-T changes, no ectopy, normal OR & QRS intervals, This was reviewed and interpreted by myself the ER physician. Chest x-ray: No acute process. No infiltrate. No pneumothorax. No cardiomegaly. This was reviewed and interpreted by myself the ER physician. Reexamination: Patient remained stable. No increased work of breathing. No altered mental status. Lab Data 10/07/23 09:20 10/07/23 09:20 Laboratory Results WBC 5.53 10^3/uL (3.29-11.43) 10/07/23 09:20 RBC 4.48 10^6/uL (3.85-5.65) 10/07/23 09:20 Hgb 14.60 g/dL (11.27-16.99) 10/07/23 09:20 Hct 42.2 % (36-47) 10/07/23 09:20 MCV 94.2 fl (85-98) 10/07/23 09:20 MCH 32.6 pg (27-33) 10/07/23 09:20 MCHC 34.6 g/dL (30-55) 10/07/23 09:20 RDW 13.1 % (12.1-15.1) 10/07/23 09:20 Plt Count 205 10^3/cmm (157-399) 10/07/23 09:20 MPV 9.8 fL (7.4-10.4) 10/07/23 09:20 Neut % (Auto) 83.8 % 10/07/23 09:20 Lymph % (Auto) 14.5 % 10/07/23 09:20 [place] % (Auto) 1.3 % 10/07/23 09:20 Eos % (Auto) 0.0 % 10/07/23 09:20 Baso % (Auto) 0.2 % 10/07/23 09:20 Neut # (Auto) 4.64 10^3/uL (1.8-7.7) 10/07/23 09:20 Lymph # (Auto) 0.8 10^3/uL (0.8-4.8) 10/07/23 09:20 [place] # (Auto) 0.1 10^3/uL (0.2-0.9) L 10/07/23 09:20 Eos # (Auto) 0.0 10^3/uL (0.0-0.8) 10/07/23 09:20 Baso # (Auto) 0.0 10^3/uL (0.0-0.1) 10/07/23 09:20 Nucleated RBC % (auto) 0 % 10/07/23 09:20 Nucleated RBCs # 0.0 /100WBC 10/07/23 09:20 Specimen Type Arterial 10/07/23 12:35 Sample Site Radial, left 10/07/23 12:35 ABG pH 7.44 (7.35-7.45) 10/07/23 12:35 ABG pCO2 30.7 mmHg (35-45) L 10/07/23 12:35 ABG pO2 90.4 mmHg (80.0-100.0) 10/07/23 12:35 ABG PO2/FiO2 Ratio 0 04/09/24 12:35 ABG HCO3 20.6 mmol/L (22-26) L 10/07/23 12:35 ABG O2 Saturation 98.4 10/07/23 12:35 ABG Base Excess -2.5 mmol/L (-2.0-2.0) L 10/07/23 12:35 Kishor Test Pos 10/07/23 12:35 A-a O2 Gradient 2.5 mmHg (5-10) L 10/07/23 12:35 Hematocrit 45.8 % (37-47) 10/07/23 12:35 Hgb O2 Saturation 96.9 % (95-100) 10/07/23 12:35 Carboxyhemoglobin 1.0 %THgb (0.4-20.1) 10/07/23 12:35 Methemoglobin 0.5 % (0.4-1.5) 10/07/23 12:35 Total Hemoglobin 14.9 g/dL (12-16) 10/07/23 12:35 Sodium 136.0 mmol/L (131-143) 10/07/23 12:35 Potassium 4.3 mmol/L (3.5-5.0) 10/07/23 12:35 Glucose 202.0 mg/dL (70-115) H 10/07/23 12:35 Ionized Calcium 1.2 mmol/L (1.1-1.4) 10/07/23 12:35 O2 Delivery Device Room air 10/07/23 12:35 FiO2 21.0 % 10/07/23 12:35 Remote Control Mirror Installer ID [place] 10/07/23 12:35 Sodium 132 mmol/L (136-145) L 10/07/23 09:20 Potassium 4.4 mmol/L (3.5-5.1) 10/07/23 09:20 Chloride 99 mmol/L (98-107) 10/07/23 09:20 Carbon Dioxide 18 mmol/L (22-29) L 10/07/23 09:20 Anion Gap 19.4 (5-19) H 10/07/23 09:20 BUN 14 mg/dL (8-23) 10/07/23 09:20 Creatinine 0.8 mg/dL (0.5-0.9) 10/07/23 09:20 GFR Calculation Not Reportable 04/09/24 09:20 Glucose 321 mg/dL (65-115) H 10/07/23 09:20 Calculated Osmolality 287 mOsm/kg (285-295) 10/07/23 09:20 Calcium 9.3 mg/dL (8.5-10.5) 10/07/23 09:20 Total Bilirubin 0.5 mg/dL (0.15-1.2) 10/07/23 09:20 AST 18 U/L (0-32) 10/07/23 09:20 ALT 24 U/L (0-33) 10/07/23 09:20 Alkaline Phosphatase 88 U/L (35-105) 10/07/23 09:20 Troponin T Baseline 21 ng/L (0-10) H 10/07/23 09:20 Troponin T 120 Minute 26.59 ng/L (0-10) H 10/07/23 11:22 Delta Troponin T 5.59 ABS# (0-10) 10/07/23 11:22 Total Protein 7.9 g/dL (6.6-8.7) 10/07/23 09:20 Albumin 4.2 g/dL (3.5-5.2) 10/07/23 09:20 Globulin 3.7 g/dL (1.3-4.6) 10/07/23 09:20 All radiology interpretation(s) finalized by discharge Other Data Assessment and plan: - Discharged home - Discussed findings and plan with patient. Answered any questions. - All laboratory values were reviewed and interpreted personally by myself, the ER physician - All imaging was reviewed and interpreted personally by myself, the ER physician. - Evaluation and treatment of this problem were appropriate in the emergency setting Discharge Plan Discharge Patient Disposition: Home Clinical Impression: Chest pain Condition: Stable Prescriptions: No Action propranolol 80 mg capsule,extended release 24hr 80 mg PO BEDTIME losartan 100 mg tablet 100 mg PO QAM alprazolam 0.25 mg tablet 0.5 mg PO BEDTIME pantoprazole 40 mg tablet,delayed release (DR/EC) 40 mg PO QPM prednisone 20 mg tablet 40 mg PO DAILY 5 Days Qty: 10 0RF Rx Instructions: rx written 10/07/23 not picked up yet albuterol sulfate 90 mcg/actuation HFA aerosol inhaler 2 inh inhalation Q6H PRN (Reason: shortness of breath or wheezing) Qty: 8.5 0RF nitrofurantoin monohyd/m-cryst [Macrobid] 100 mg capsule 100 mg PO Q12H 7 Days Qty: 14 0RF Rx Instructions: must administer with a meal/food Aspir-81 81 mg Tablet,Delayed Release (Dr/Ec) 81 mg PO QAM acetaminophen [Tylenol Ex Str Rapid Release] 500 mg Tablet 1,000 mg PO Q6H PRN (Reason: Pain) Synthroid 150 mcg tablet 150 mcg PO QAM rosuvastatin 5 mg tablet 5 mg PO BEDTIME Lantus Solostar U-100 Insulin 100 unit/mL (3 mL) insulin pen 48 unit SUBCUT QAM Aspercreme Arthritis Pain 1 % Gel 2 g TOPICAL QID PRN (Reason: Pain) Rx Instructions: apply to single elbow, wrist or hand; for hand includes palm/fingers/back of hand PreserVision AREDS-2 250-90-40-1 mg Capsule 1 tab PO BID Ozempic 2 mg/dose (8 mg/3 mL) pen injector 2 mg SUBCUT Q7D Rx Instructions: on fri Discharge Orders: Discharge ED (Routine); Ordered 10/07/23 Ordered By: Ninoska Shine Referrals: Emily Hinojosa MD [Primary Care Provider] - (You have been screened and evaluated and felt safe for discharge. Health conditions do change or evolve sometimes and as such it is important that you follow up with your Primary Doctor to be re checked, 3-5 days is a general good time frame for follow up. You are always welcome to return to the ED for re assessment if your symptoms are worsening or you have new concerns) Discharge Diet: Usual diet Discharge Activity: Resume usual activity Patient Instructions: Noncardiac Chest Pain (ED), Opioid Safety, Pain Management Coding Level of Care Code ED [employer] [place] for [place]
[2023-10-07 09:32] LABS: Basophils % 0.2 %; Hematocrit 42.2 % (36-47); Lymphocytes # 0.8 10^3/uL (0.8-4.8); Lymphocytes % 14.5 %; Mean Corpuscular HGB Conc 34.6 g/dL (30-55); Mean Corpuscular Hemoglobin 32.6 pg (27-33); Mean Corpuscular Volume 94.2 fl (85-98); Mean Platelet Volume 9.8 fL (7.4-10.4); Monocytes # 0.1 10^3/uL (0.2-0.9); Monocytes % 1.3 %; Neutrophils # 4.64 10^3/uL (1.8-7.7); Neutrophils % 83.8 %; Nucleated Red Blood Cells % 0 %; Platelet Count 205 10^3/cmm (157-399); Red Blood Count 4.48 10^6/uL (3.85-5.65); Red Cell Distribution Width 13.1 % (12.1-15.1); White Blood Count 5.53 10^3/uL (3.29-11.43)
--- NOTE | 2023-10-07 09:36 | PC.PHAR ---
pt states she takes care of her own medications-pt states she uses lantus solostar 48 units qam states used 54 units today 10/07/23-ext shows last filled 09/24/23 28 units bid-pt states she hasnt started the rxs from er visit from 10/07/23 macrobid 100mg [id number] inhaler and prednisone 40mg daily for 5 days-
[2023-10-07 09:48] LABS: Troponin(5th) Baseline 21 ng/L (0-10)
[2023-10-07 09:53] LABS: Alanine Aminotransferase 24 U/L (0-33); Albumin Level 4.2 g/dL (3.5-5.2); Alkaline Phosphatase 88 U/L (35-105); Anion Gap 19.4 (5-19); Aspartate Amino Transferase 18 U/L (0-32); Blood Urea Nitrogen 14 mg/dL (8-23); Calcium 9.3 mg/dL (8.5-10.5); Carbon Dioxide 18 mmol/L (22-29); Chloride 99 mmol/L (98-107); Creatinine Clr Calc Pharmacy 57.3469; Globulin 3.7 g/dL (1.3-4.6); Glucose 321 mg/dL (65-115); Osmolality Calculated 287 mOsm/kg (285-295); Potassium 4.4 mmol/L (3.5-5.1); Sodium 132 mmol/L (136-145); Total Bilirubin 0.5 mg/dL (0.15-1.2); Total Protein 7.9 g/dL (6.6-8.7)
--- NOTE | 2023-10-07 11:18 | ECG_ITS ---
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 Measurements Intervals [place] Rate: 72 P: 50 PA: 205 QRS: -50 QRSD: 88 T: 0 QT: 416 QTc: 458 Interpretive Statements SINUS RHYTHM POSSIBLE LEFT ATRIAL ENLARGEMENT [-0.1mV P-WAVE IN V1/V2] POSSIBLE RIGHT VENTRICULAR CONDUCTION DELAY [RSR (QR) IN V1/V2] LEFT ANTERIOR FASCICULAR BLOCK [QRS AXIS <= -45, QR IN I, RS IN II] POSSIBLE LEFT VENTRICULAR HYPERTROPHY [VOLTAGE CRITERIA PLUS LAE OR QRS WIDENING] POSSIBLE ANTERIOR MYOCARDIAL INFARCTION , OF INDETERMINATE AGE [30 ms Q WAVE IN V3/V4, OR R < 0.2 mV IN V4] Compared to ECG 10/07/2023 09:03:06 No significant changes Electronically Signed On 10-07-2023 21:27:09 CDT by Juliana Gilbert M.D. [email or web address]
[2023-10-07 11:54] LABS: Troponin 5 2HR Delta 5.59 ABS# (0-10)
[2023-10-07 12:29] LABS: Troponin 5 2HR 26.59 ng/L (0-10)
[2023-10-07 12:48] LABS: ABG PCO2 30.7 mmHg (35-45); ABG PH Result 7.44 (7.35-7.45); Alveolar-Arterial Oxygen Gradi 2.5 mmHg (5-10); Arterial Blood Gas Hematocrit 45.8 % (37-47); Base Excess ABG -2.5 mmol/L (-2.0-2.0); Blood Gas Allen Test Pos; Blood Gas Operator Identificat MONRO; Blood Gas Sample Site Radial, left; Blood Gas Sample Type Arterial; HCO3 ABG 20.6 mmol/L (22-26); HGB O2 Sat 96.9 % (95-100); Ionized Calcium Level - ABG 1.2 mmol/L (1.1-1.4); Methemoglobin 0.5 % (0.4-1.5); Oxygen Device ROOM AIR; Oxygen Saturation ABG 98.4; PO2 ABG 90.4 mmHg (80.0-100.0); PO2 FiO2 Ratio Arterial Blood 0; Potassium Level - ABG 4.3 mmol/L (3.5-5.0); Total Hemoglobin 14.9 g/dL (12-16)
== END 2023-10-07 13:10 | disposition home or self-care (01) ==
PROVIDERS: Emergency Provider Emergency Medicine; PCP Family Medicine
DX: R07.9 Chest pain, unspecified (principal); Z79.82 Long term (current) use of aspirin; Z79.4 Long term (current) use of insulin
CPT/HCPCS: 36415; 36600; 71045; 80051; 80053; 82330; 82805; 84484; 85025; 93005; 99285

== ENCOUNTER → 2023-11-03 12:02 | Outpatient (BNVA) | payer MEDICARE, MEDICAID, SELFPAY | PROVIDERS: PCP Family Medicine; Referring Provider Nurse Practitioner Family; Visit Provider Internal Medicine | DX: R07.9 Chest pain, unspecified (principal); R06.09 Other forms of dyspnea | CPT/HCPCS: 99204 ==

== ENCOUNTER 2023-11-12 13:06 | Inpatient (IN) | payer MEDICARE, MEDICAID, SELFPAY ==
[2023-11-12] VITALS (11 sets, daily range): BP systolic 119–208; BP diastolic 78–101; PULSE 71–82; RESP 16–22; TEMP 36.4–36.7; O2SAT 92–98
--- NOTE | 2023-11-12 13:13 | XRR_ITS ---
PROCEDURE INFORMATION: Exam: XR Right Hip Exam date and time: 11/12/2023 1:24 PM Age: 83 years old Clinical indication: Injury or trauma; Fall; Blunt trauma (contusions or hematomas); Right; Hip; Additional info: Fall/hip pain TECHNIQUE: Imaging protocol: Radiologic exam of the right hip. Views: 1 view hip with pelvis when performed. COMPARISON: No relevant prior studies available. FINDINGS: Bones/joints: There is a comminuted and angulated intertrochanteric fracture of the right hip. The right femoral head continues to articulate with the acetabulum. There is superior displacement of the right femoral shaft relative to the right femoral head. The right-sided pubic rami appear intact. Soft tissues: Unremarkable. XR/XR hip RT 2-3V wo/w pel* [id number] IMPRESSION: Comminuted intertrochanteric fracture of the right hip
--- NOTE | 2023-11-12 13:13 | CT_ITS ---
WS: [id number] CT CERVICAL TRAUMA TECHNIQUE: Noncontrast CT of the cervical spine with coronal and sagittal reformatted images. CLINICAL INFORMATION: fall/head inj COMPARISON: None. DLP: 214.[address] scans at [facility] use at least one of these dose optimization techniques: automated e xposure control; mA and/or kV adjustment per patient size (includes targeted exams where dose is matc hed to clinical indication); or iterative reconstruction. FINDINGS: Straightening of the normal cervical lordosis. Normal craniocervical junction with pannus formation. Moderate spondylitic changes. Slight anterolisthesis C3 on C4. Disc narrowing worse at C4-C5 C5-C6 an d C6-C7. Mastoid air cells are well aerated. Normal C1 ring. Dens appears intact. Lung apices are wel l aerated. Increased attenuation ovoid soft tissue nodule in the LEFT paraglottic fat described below. CT/CT cervical spin wo con* [id number] IMPRESSION: 1. No evidence of acute fracture or dislocation. 2. Ovoid soft tissue nodule along the LEFT false vocal cord in the paraglottic fat measuring 11 x 10 x 18 mm suspicious for neoplasm in a patient this age. R ecommend ENT consultation and further evaluation with endoscopy.
--- NOTE | 2023-11-12 13:14 | CT_ITS ---
WS: [id number] CT HEAD TECHNIQUE: Noncontrast CT of the head obtained from the skullbase to the vertex. CLINICAL INFORMATION: fall/head inj COMPARISON: None. DLP: 1151.[address] scans at [facility] use at least one of these dose optimization techniques: automated e xposure control; mA and/or kV adjustment per patient size (includes targeted exams where dose is matc hed to clinical indication); or iterative reconstruction. FINDINGS: No evidence of intracranial hemorrhage or mass effect. Ventricular system and basal cisterns are cleaning nt. Mild small vessel changes with moderate parenchymal volume loss. No extra-axial fluid collections . No evidence of mass or mass effect. Intracranial vascular calcification. Inspissated secretions in the LEFT maxillary sinus and LEFT ethmoid air cells. Partial opacification of the LEFT frontal ethmoidal recess. Mastoid air cells are well aerated. CT/CT head wo con* [id number] IMPRESSION: 1. No evidence of intracranial hemorrhage or mass effect. 2. Mild small vessel changes with moderate parenchymal volume loss. 3. LEFT maxillary sinusitis partially visualized. 4. No acute intracranial findings.
--- NOTE | 2023-11-12 13:16 | W.ED.FALL ---
Documented by User: KATHIE Byrne 11/12/23 15:10 HPI - Fall General: Chief Complaint: Fall Stated Complaint: Fall Time Seen by Provider: 11/12/23 13:08 Source: patient and EMS Mode of arrival: EMS Limitations: no limitations History of Present Illness: Patient is an 83-year-old female presenting to the emergency department due to a fall onset prior to arrival. Patient notes she was walking through her house when the lights were off, as she missed a step while walking down her stairs and landed on her right hip and struck the side of her head. She did not lose consciousness or have any symptoms prior to falling such as palpitations or lightheadedness. She is not currently on a blood thinner. She notes she was able to sit up and call her daughter, who arrived to her house shortly and called ambulance. Patient's only complaint at this time is some right hip pain, which she can feel at rest. She is unable to move the right lower leg. She has no prior injuries or surgical history of the hip. No other injuries noted, and while she states she did hit her head she is not having pain at this time. She does arrive in a c-collar, though she denies any neck pain and has full range of motion. No significant downtime noted. Family in the emergency room states that patient is at baseline mentation. Her blood pressure is elevated on arrival, states she took her blood pressure medications this morning. Other than the pain to her right hip, no other symptoms noted at this time. Normally she is ambulatory at home without use of assistance with cane or walker, has not been ambulatory since the fall. complaint: fall Onset (ago): minute(s) Fall from: standing Fall witnessed: no Place fall occurred: home Loss of consciousness: None Prolonged down time: no Symptoms prior to fall: none Context: tripped/slipped Location of injury: head and other (Right hip) Associated symptoms-after fall: Reports no associated symptoms; Denies abdominal pain, chest pain, headache(s), lightheadedness or neck pain Review of Systems General: Reports: 10 or more systems reviewed and unremarkable except in HPI and below Const: Reports: other (Fall/head injury); Denies: fever(s), chills or fatigue Eyes: Denies: change in vision ENMT: Denies: throat pain, ear or mastoid pain or nasal discharge Card: Denies: chest pain, palpitations, swelling of feet/ankles or lightheadedness Resp: Denies: dyspnea, productive cough or wheezing GI: Denies: abdominal pain, nausea, vomiting, diarrhea or constipation : Denies: flank pain, difficulty voiding, dysuria or urinary frequency Musc: Reports: joint pain (Right hip); Denies: neck pain or back pain Skin/Breast: Denies: rash Neuro: Denies: headache(s), numbness in extremities or weakness in extremities PFSH ED PFSH: Medical History Nausea Abdominal pain Hypertensive urgency Surgical History No pertinent past surgical history Family History Son Hypertension Daughter Hypertension Social History Smoking and tobacco/nicotine status: never used tobacco/nicotine Alcohol intake: never Substance/Drug Use: never Physical Exam Const: COMMON NORMALS: no acute distress, patient oriented x3 and no limitations GENERAL APPEARANCE: cooperative, comfortable and well developed ORIENTATION/CONSCIOUSNESS: Yes awake, Yes oriented to person, Yes oriented to place and Yes oriented to time HENMT: COMMON NORMALS: normocephalic, atraumatic, hearing grossly normal bilaterally, external ears normal and Normal external nose present HEAD & SCALP: normal to inspection, normocephalic and atraumatic; no Guy's sign, no laceration, no palpable skull fracture, no raccoon eyes and no scalp tenderness FACE & SINUS: normal facial exam and face symmetric NOSE: Normal external nose present EXTERNAL EAR: Yes external ears normal Eye: COMMON NORMALS: Equal, round and reactive pupils present, EOMs intact bilaterally and conjunctivae normal CONJUNCTIVA: Yes conjunctivae normal PUPIL: Yes Equal, round and reactive pupils present Neck/C-Spine: COMMON NORMALS: full ROM, supple and no JVD CERVICAL SPINE: Yes cervical ROM normal, No pain with cervical ROM, No Cervical spine tenderness, No Paracervical muscle tenderness and Yes collar present Chest: COMMONS NORMALS: normal inspection of the chest and normal palpation of entire chest wall Resp: COMMON NORMALS: normal respiratory effort, No retractions, No use of accessory muscles and clear to auscultation bilaterally AUSCULTATION: clear to auscultation bilaterally Cardio: COMMON NORMALS: no JVD, regular rate, regular rhythm, No clicks present (Cardio), No murmurs present (Cardio) and No rub (Cardio) RATE: regular rate RHYTHM: regular rhythm GI: COMMON NORMALS: Normal to inspection, nondistended, normoactive bowel sounds present, Soft to palpation and non-tender AUSCULTATION: Yes normoactive bowel sounds PALPATION: Yes Soft to palpation RECTAL EXAM: deferred Back/Pelvis: COMMON NORMALS: thoracic and lumbar spine normal to inspection, no thoracic nor lumbar tenderness and thoraco-lumbar ROM normal Extremity: COMMON NORMALS: normal to inspection NARRATIVE EXTREMITY EXAM: Mild tenderness to palpation about the posterior right hip. Right lower extremity is mildly externally rotated at rest. Cannot lift the right leg, distal neurovascular exam intact. Normal right knee examination. No other injuries noted. No other deformities or signs of trauma noted. Neuro: COMMON NORMALS: patient oriented x3, CN's II-XII intact bilaterally, moves all extremities and no sensory deficits noted SENSORIUM/ORIENTATION: Yes oriented to person, Yes oriented to place and Yes oriented to time Psych: COMMON NORMALS: mental status grossly normal and Normal thought process present THOUGHT PROCESS: Normal thought process present Skin: COMMON NORMALS: no rashes or lesions noted GENERAL SKIN EXAM: no rashes or lesions noted Course Vital Signs: Vital signs: Vital Signs Temperature 98.2 F 11/13/23 04:00 Pulse Rate 68 11/13/23 04:00 Respiratory Rate 17 11/13/23 06:32 Blood Pressure 110/65 11/13/23 04:00 Pulse Oximetry 91 11/13/23 06:32 Oxygen Delivery Me thod Room Air 11/12/23 18:26 MDM - Fall Medical Decision Making Patient fell injured right hip today. On arrival she could not move her right lower extremity, does states she hit her head. CT head and neck negative for any acute intracranial or bony abnormalities. X-ray of right hip did show comminuted intertrochanteric fracture of the right hip. Pain controlled in the ED with 2 doses of IV morphine. Lab workup unremarkable. Spoke with Dr. Valle, orthopedic surgeon, who will see the patient tomorrow for surgery. Spoke with Dr. Ellis who accepts patient for admission to the hospital. This case was discussed with supervising physician, Dr. Howard, who agrees with plan. Patient and family informed, they agree and all other questions and concerns are addressed at this time. Lab Data I reviewed the patient's lab results. 11/13/23 05:57 11/13/23 05:57 Radiology Impressions Cervical Spine CT 11/12/23 13:13 IMPRESSION: 1. No evidence of acute fracture or dislocation. 2. Ovoid soft tissue nodule along the LEFT false vocal cord in the paraglottic fat measuring 11 x 10 x 18 mm suspicious for neoplasm in a patient this age. Recommend ENT consultation and further evaluation with endoscopy. Hip/Pelvis X-Ray 11/12/23 13:13 IMPRESSION: Comminuted intertrochanteric fracture of the right hip Head CT 11/12/23 13:14 IMPRESSION: 1. No evidence of intracranial hemorrhage or mass effect. 2. Mild small vessel changes with moderate parenchymal volume loss. 3. LEFT maxillary sinusitis partially visualized. 4. No acute intracranial findings. Femur X-Ray 11/12/23 14:53 IMPRESSION: 1. Comminuted intertrochanteric fracture of the right hip 2. The mid and distal shaft of the right femur are intact 3. Chronic osteoarthritis of the right knee Knee X-Ray 11/12/23 14:53 IMPRESSION: Chronic osteoarthritis of the right knee without fracture Pelvis X-Ray 11/12/23 14:53 IMPRESSION: Intertrochanteric fracture of the right hip. No other pelvic fractures are identified Chest X-Ray 11/12/23 14:56 IMPRESSION: No acute findings. Laboratory Results WBC 11.10 10^3/uL (3.29-11.43) 11/12/23 13:27 RBC 4.39 10^6/uL (3.85-5.65) 11/12/23 13:27 Hgb 14.40 g/dL (11.27-16.99) 11/12/23 13:27 Hct 41.2 % (36-47) 11/12/23 13:27 MCV 93.8 fl (85-98) 11/12/23 13:27 MCH 32.8 pg (27-33) 11/12/23 13:27 MCHC 35.0 g/dL (30-55) 11/12/23 13:27 RDW 13.1 % (12.1-15.1) 11/12/23 13:27 Plt Count 203 10^3/cmm (157-399) 11/12/23 13:27 MPV 9.6 fL (7.4-10.4) 11/12/23 13:27 Neut % (Auto) 60.2 % 11/12/23 13:27 Lymph % (Auto) 19.1 % 11/12/23 13:27 Travis % (Auto) 5.0 % 11/12/23 13:27 Eos % (Auto) 14.9 % 11/12/23 13:27 Baso % (Auto) 0.3 % 11/12/23 13:27 Neut # (Auto) 6.69 10^3/uL (1.8-7.7) 11/12/23 13:27 Lymph # (Auto) 2.1 10^3/uL (0.8-4.8) 11/12/23 13:27 Travis # (Auto) 0.6 10^3/uL (0.2-0.9) 11/12/23 13:27 Eos # (Auto) 1.7 10^3/uL (0.0-0.8) H 11/12/23 13:27 Baso # (Auto) 0.0 10^3/uL (0.0-0.1) 11/12/23 13:27 Nucleated RBC % (auto) 0 % 11/12/23 13: Nucleated RBCs # 0.0 /100WBC 11/12/23 13:27 PT 13.60 SECONDS (12.1-14.9) 11/12/23 13:27 INR 1.01 (0.8-1.2) 11/12/23 13:27 APTT 30.3 SECONDS (23.9-36.7) 11/12/23 13:27 Sodium 135 mmol/L (136-145) L 11/12/23 13:27 Potassium 4.6 mmol/L (3.5-5.1) 11/12/23 13:27 Chloride 101 mmol/L (98-107) 11/12/23 13:27 Carbon Dioxide 24 mmol/L (22-29) 11/12/23 13:27 Anion Gap 14.6 (5-19) 11/12/23 13:27 BUN 12 mg/dL (8-23) 11/12/23 13:27 Creatinine 0.8 mg/dL (0.5-0.9) 11/12/23 13:27 GFR Calculation Not Reportable 11/12/23 13:27 Glucose 217 mg/dL (65-115) H 11/12/23 13:27 Calculated Osmolality 286 mOsm/kg (285-295) 11/12/23 13:27 Calcium 9.3 mg/dL (8.5-10.5) 11/12/23 13:27 Total Bilirubin 0.4 mg/dL (0.15-1.2) 11/12/23 13:27 AST 21 U/L (0-32) 11/12/23 13:27 ALT 29 U/L (0-33) 11/12/23 13:27 Alkaline Phosphatase 90 U/L (35-105) 11/12/23 13:27 Creatine Kinase 134 U/L (26-192) 11/12/23 13:27 Total Protein 7.5 g/dL (6.6-8.7) 11/12/23 13:27 Albumin 4.1 g/dL (3.5-5.2) 11/12/23 13:27 Globulin 3.4 g/dL (1.3-4.6) 11/12/23 13:27 All radiology interpretation(s) finalized by discharge Discharge Plan Discharge Patient Disposition: Placed in Observation Admit Provider: Susan Ellis Clinical Impression: Closed intertrochanteric fracture of right hip Qualifiers: Encounter type: initial encounter Fracture alignment: nondisplaced Qualified Code(s): S72.144A - Nondisplaced intertrochanteric fracture of right femur, initial encounter for closed fracture Coding Level of Care Code 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 [employer] Documented by User: Armond Salas DO 11/13/23 07:49 HPI - Fall General: Chief Complaint: Fall Stated Complaint: Fall Time Seen by Provider: 11/12/23 13:08 [facility] ED PFSH: Medical History Nausea Abdominal pain Hypertensive urgency Surgical History No pertinent past surgical history Family History Son Hypertension Daughter Hypertension Social History Smoking and tobacco/nicotine status: never used tobacco/nicotine Alcohol intake: never Substance/Drug Use: never Course Vital Signs: Vital signs: Vital Signs Temperature 98.2 F 11/13/23 04:00 Pulse Rate 68 11/13/23 04:00 Respiratory Rate 17 11/13/23 06:32 Blood Pressure 110/65 11/13/23 04:00 Pulse Oximetry 91 11/13/23 06:32 Oxygen Delivery Me thod Room Air 11/12/23 18:26 MDM - Fall Medical Decision Making Patient fell injured right hip today. On arrival she could not move her right lower extremity, does states she hit her head. CT head and neck negative for any acute intracranial or bony abnormalities. X-ray of right hip did show comminuted intertrochanteric fracture of the right hip. Pain controlled in the ED with 2 doses of IV morphine. Lab workup unremarkable. Spoke with Dr. Valle, orthopedic surgeon, who will see the patient tomorrow for surgery. Spoke with Dr. Ellis who accepts patient for admission to the hospital. This case was discussed with supervising physician, Dr. Howard, who agrees with plan. Patient and family informed, they agree and all other questions and concerns are addressed at this time. Chart reviewed and patient discussed with midlevel. Agree with assessment and plan. Lab Data 11/13/23 05:57 11/13/23 05:57 Radiology Impressions Cervical Spine CT 11/12/23 13:13 IMPRESSION: 1. No evidence of acute fracture or dislocation. 2. Ovoid soft tissue nodule along the LEFT false vocal cord in the paraglottic fat measuring 11 x 10 x 18 mm suspicious for neoplasm in a patient this age. Recommend ENT consultation and further evaluation with endoscopy. Hip/Pelvis X-Ray 11/12/23 13:13 IMPRESSION: Comminuted intertrochanteric fracture of the right hip Head CT 11/12/23 13:14 IMPRESSION: 1. No evidence of intracranial hemorrhage or mass effect. 2. Mild small vessel changes with moderate parenchymal volume loss. 3. LEFT maxillary sinusitis partially visualized. 4. No acute intracranial findings. Femur X-Ray 11/12/23 14:53 IMPRESSION: 1. Comminuted intertrochanteric fracture of the right hip 2. The mid and distal shaft of the right femur are intact 3. Chronic osteoarthritis of the right knee Knee X-Ray 11/12/23 14:53 IMPRESSION: Chronic osteoarthritis of the right knee without fracture Pelvis X-Ray 11/12/23 14:53 IMPRESSION: Intertrochanteric fracture of the right hip. No other pelvic fractures are identified Chest X-Ray 11/12/23 14:56 IMPRESSION: No acute findings. Laboratory Results WBC 11.10 10^3/uL (3.29-11.43) 11/12/23 13:27 RBC 4.39 10^6/uL (3.85-5.65) 11/12/23 13:27 Hgb 14.40 g/dL (11.27-16.99) 11/12/23 13:27 Hct 41.2 % (36-47) 11/12/23 13:27 MCV 93.8 fl (85-98) 11/12/23 13:27 MCH 32.8 pg (27-33) 11/12/23 13:27 MCHC 35.0 g/dL (30-55) 11/12/23 13:27 RDW 13.1 % (12.1-15.1) 11/12/23 13:27 Plt Count 203 10^3/cmm (157-399) 11/12/23 13:27 MPV 9.6 fL (7.4-10.4) 11/12/23 13:27 Neut % (Auto) 60.2 % 11/12/23 13:27 Lymph % (Auto) 19.1 % 11/12/23 13:27 Travis % (Auto) 5.0 % 11/12/23 13:27 Eos % (Auto) 14.9 % 11/12/23 13:27 Baso % (Auto) 0.3 % 11/12/23 13:27 Neut # (Auto) 6.69 10^3/uL (1.8-7.7) 11/12/23 13:27 Lymph # (Auto) 2.1 10^3/uL (0.8-4.8) 11/12/23 13:27 Travis # (Auto) 0.6 10^3/uL (0.2-0.9) 11/12/23 13:27 Eos # (Auto) 1.7 10^3/uL (0.0-0.8) H 11/12/23 13:27 Baso # (Auto) 0.0 10^3/uL (0.0-0.1) 11/12/23 13:27 Nucleated RBC % (auto) 0 % 11/12/23 13: Nucleated RBCs # 0.0 /100WBC 11/12/23 13:27 PT 13.60 SECONDS (12.1-14.9) 11/12/23 13:27 INR 1.01 (0.8-1.2) 11/12/23 13:27 APTT 30.3 SECONDS (23.9-36.7) 11/12/23 13:27 Sodium 135 mmol/L (136-145) L 11/12/23 13:27 Potassium 4.6 mmol/L (3.5-5.1) 11/12/23 13:27 Chloride 101 mmol/L (98-107) 11/12/23 13:27 Carbon Dioxide 24 mmol/L (22-29) 11/12/23 13:27 Anion Gap 14.6 (5-19) 11/12/23 13:27 BUN 12 mg/dL (8-23) 11/12/23 13:27 Creatinine 0.8 mg/dL (0.5-0.9) 11/12/23 13:27 GFR Calculation Not Reportable 11/12/23 13:27 Glucose 217 mg/dL (65-115) H 11/12/23 13:27 Calculated Osmolality 286 mOsm/kg (285-295) 11/12/23 13:27 Calcium 9.3 mg/dL (8.5-10.5) 11/12/23 13:27 Total Bilirubin 0.4 mg/dL (0.15-1.2) 11/12/23 13:27 AST 21 U/L (0-32) 11/12/23 13:27 ALT 29 U/L (0-33) 11/12/23 13:27 Alkaline Phosphatase 90 U/L (35-105) 11/12/23 13:27 Creatine Kinase 134 U/L (26-192) 11/12/23 13:27 Total Protein 7.5 g/dL (6.6-8.7) 11/12/23 13:27 Albumin 4.1 g/dL (3.5-5.2) 11/12/23 13:27 Globulin 3.4 g/dL (1.3-4.6) 11/12/23 13:27 Discharge Plan Discharge Patient Disposition: Placed in Observation Admit Provider: Susan Ellis Clinical Impression: Closed intertrochanteric fracture of right hip Qualifiers: Encounter type: initial encounter Fracture alignment: nondisplaced Qualified Code(s): S72.144A - Nondisplaced intertrochanteric fracture of right femur, initial encounter for closed fracture Coding Level of Care Code 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
[2023-11-12] MEDS: morphine 4 mg/mL SDV 1 mL IVP ×2 (13:32→15:20)
[2023-11-12 13:42] LABS: Basophils % 0.3 %; Eosinophils # 1.7 10^3/uL (0.0-0.8); Eosinophils % 14.9 %; Hematocrit 41.2 % (36-47); Lymphocytes # 2.1 10^3/uL (0.8-4.8); Lymphocytes % 19.1 %; Mean Corpuscular Hemoglobin 32.8 pg (27-33); Mean Corpuscular Volume 93.8 fl (85-98); Mean Platelet Volume 9.6 fL (7.4-10.4); Monocytes # 0.6 10^3/uL (0.2-0.9); Neutrophils # 6.69 10^3/uL (1.8-7.7); Neutrophils % 60.2 %; Nucleated Red Blood Cells % 0 %; Platelet Count 203 10^3/cmm (157-399); Red Blood Count 4.39 10^6/uL (3.85-5.65); Red Cell Distribution Width 13.1 % (12.1-15.1)
[2023-11-12 13:54] LABS: Alanine Aminotransferase 29 U/L (0-33); Albumin Level 4.1 g/dL (3.5-5.2); Alkaline Phosphatase 90 U/L (35-105); Anion Gap 14.6 (5-19); Aspartate Amino Transferase 21 U/L (0-32); Blood Urea Nitrogen 12 mg/dL (8-23); Calcium 9.3 mg/dL (8.5-10.5); Carbon Dioxide 24 mmol/L (22-29); Chloride 101 mmol/L (98-107); Creatine Phosphokinase 134 U/L (26-192); Creatinine Clr Calc Pharmacy 57.3469; Globulin 3.4 g/dL (1.3-4.6); Glucose 217 mg/dL (65-115); Osmolality Calculated 286 mOsm/kg (285-295); Potassium 4.6 mmol/L (3.5-5.1); Sodium 135 mmol/L (136-145); Total Bilirubin 0.4 mg/dL (0.15-1.2); Total Protein 7.5 g/dL (6.6-8.7)
[2023-11-12 14:50] LABS: INR 1.01 (0.8-1.2)
[2023-11-12 14:53] LABS: Partial Thromboplastin Time 30.3 SECONDS (23.9-36.7)
--- NOTE | 2023-11-12 14:53 | XRR_ITS ---
PROCEDURE INFORMATION: Exam: XR Right Knee Exam date and time: 11/12/2023 3:10 PM Age: 83 years old Clinical indication: Injury or trauma; Fall; Blunt trauma; Knee; Right TECHNIQUE: Imaging protocol: Radiologic exam of the right knee. Views: 3 views. COMPARISON: CR XR femur RT min 2V* [id number] 12/11/2023 15:10 FINDINGS: Bones/joints: There is normal anatomic alignment of the right knee. No fracture is visible. There are moderate osteoarthritic changes to the medial and lateral compartment of the right knee. There are severe osteoarthritic changes of the patellofemoral compartment. No evidence of a right knee effusion Soft tissues: Normal. XR/XR knee RT 3V* [id number] IMPRESSION: Chronic osteoarthritis of the right knee without fracture
--- NOTE | 2023-11-12 14:53 | XRR_ITS ---
PROCEDURE INFORMATION: Exam: XR Right Femur Exam date and time: 11/12/2023 3:10 PM Age: 83 years old Clinical indication: Injury or trauma; Fall; Blunt trauma; Thigh or upper leg; Right TECHNIQUE: Imaging protocol: Radiologic exam of the right femur. Views: 2 views. COMPARISON: CR XR knee RT 3V* [id number] 12/11/2023 15:10 and right hip radiographs same day FINDINGS: Bones/joints: Again noted is a comminuted intertrochanteric fracture of the right hip. The right femoral head continues to articulate with the acetabulum. The mid and distal shaft of the right femur is intact. There are chronic osteoarthritic changes of the right knee. Soft tissues: Unremarkable. Vasculature: Right femoral artery and right popliteal artery calcified atherosclerotic plaques. XR/XR femur RT min 2V* [id number] IMPRESSION: 1. Comminuted intertrochanteric fracture of the right hip 2. The mid and distal shaft of the right femur are intact 3. Chronic osteoarthritis of the right knee
--- NOTE | 2023-11-12 14:53 | XRR_ITS ---
PROCEDURE INFORMATION: Exam: XR Pelvis Exam date and time: 11/12/2023 3:09 PM Age: 83 years old Clinical indication: Injury or trauma; Fall; Blunt trauma (contusions or hematomas); Bilateral; Pelvic region TECHNIQUE: Imaging protocol: Radiologic exam of the pelvis. Views: 1 or 2 view. COMPARISON: CR XR hip RT 2-3V wo/w pel* [id number] 12/11/2023 13:24 FINDINGS: Bones/joints: Again noted is an intratrochanteric fracture of the right hip. The right femoral head articulates with the acetabulum. There are mild chronic degenerative changes of the left hip but no evidence of a fracture. The iliac bones, sacrum and pubic rami appear intact. There is chronic degenerative disc disease at L4-L5 and L5-S1. Soft tissues: Unremarkable. XR/XR pelvis 1-2V* [id number] IMPRESSION: Intertrochanteric fracture of the right hip. No other pelvic fractures are identified
--- NOTE | 2023-11-12 14:56 | XRR_ITS ---
PROCEDURE INFORMATION: Exam: XR Chest Exam date and time: 11/12/2023 3:21 PM Age: 83 years old Clinical indication: Injury or trauma; Fall; Blunt trauma (contusions or hematomas) TECHNIQUE: Imaging protocol: Radiologic exam of the chest. Views: 1 view. COMPARISON: CR XR chest 1V portable [id number] 03/03/2024 08:25 FINDINGS: Lungs: Unremarkable. No consolidation. Pleural spaces: Unremarkable. No pleural effusion. No pneumothorax. Heart/Mediastinum: Unremarkable. No cardiomegaly. Bones/joints: Unremarkable. XR/XR chest 1V portable [id number] IMPRESSION: No acute findings.
--- NOTE | 2023-11-12 15:51 | P.CONIM_ITS ---
Providers/Reason For Consult 2 Consulting Physician/Specialty*: Vinh Valle DO/orthopedic surgery Reason for Consult*: Right intertrochanteric femur fracture Requesting Physician: KATHIE Mueller Attending Physician: Susan Ellis MD Primary Care Provider: Ryann Tovar MD History of Present Illness History of Present Illness Geronimo Fair is a 83 year old female sustained ground-level fall today and found to have a right intertrochanteric femur fracture. Patient denies any loss of consciousness denies any fevers or chills. Patient denies any pain elsewhere. Hospitalist on board to admit patient orthopedics consulted for femur fracture. Will get full length femur films. She ate last at 11 AM at this point in time will admit and plan for surgical intervention tomorrow. Patient only takes an aspirin daily no other anticoagulants patient is diabetic. Review of Systems 2 General: Reports: 10 or more systems reviewed and unremarkable except in HPI and below Medications/Allergies Home Medications Medication Instructions Recorded Confirmed Last Taken Type losartan 100 mg tablet 100 mg PO QAM 08/14/19 11/12/23 11/12/23 History propranolol 80 mg capsule,extended 80 mg PO BEDTIME 08/14/19 11/12/23 11/11/23 History release 24 hr alprazolam 0.25 mg tablet 0.5 mg PO BEDTIME 03/14/23 11/12/23 11/11/23 History pantoprazole 40 mg tablet,delayed 40 mg PO QPM 03/14/23 11/12/23 11/11/23 History release acetaminophen 500 mg tablet 1,000 mg PO Q6H PRN Pain 10/07/23 11/12/23 10/07/23 06:30 History 1000 mg aspirin 81 mg tablet,delayed 81 mg PO QAM 10/07/23 11/12/23 11/12/23 History release diclofenac sodium 1 % topical gel 2 g topical QID PRN Pain 10/07/23 11/12/23 10/07/23 History (Aspercreme Arthritis Pain) rosuvastatin 5 mg tablet 5 mg PO BEDTIME 10/07/23 11/12/23 11/11/23 History semaglutide 2 mg/dose (8 mg/3 mL) 2 mg SUBCUT Q7D 10/07/23 11/12/23 11/07/23 History subcutaneous pen injector (Ozempic) vit C 250 mg-vit E 90 mg-zinc 40 1 tab PO BID 10/07/23 11/12/23 11/12/23 History mg-copper 1 qm-qtigqb-ohfmdz capsule (PreserVision AREDS-2) amlodipine 5 mg tablet 5 mg PO QPM 11/03/23 11/12/23 11/11/23 History insulin glargine 100 unit/mL (3 48 unit SUBCUT QAM 11/03/23 11/12/23 11/12/23 History mL) subcutaneous pen (Lantus Solostar U-100 Insulin) levothyroxine 137 mcg tablet 137 mcg PO QAM 11/12/23 11/12/23 11/12/23 History Allergies Allergy/AdvReac Type Severity Reaction Status Date / Time No Known Allergies Allergy Verified 11/03/23 12:29 PFSH Acute 2 PFSH: Medical History Nausea Abdominal pain Hypertensive urgency Family History Son Hypertension Daughter Hypertension Social History Smoking and tobacco/nicotine status: never used tobacco/nicotine Alcohol intake: never Substance/Drug Use: never Vitals/I&O/Wt Last Vital Signs Temp 98.1 F 11/12/23 13:14 Pulse 73 11/12/23 13:38 Resp 22 H 11/12/23 15:20 BP 168/98 11/12/23 13:38 Pulse Ox 98 11/12/23 15:20 O2 Del Method Room Air 11/12/23 13:38 Weight last 48 hrs Weight 196 lb Physical Exam 2 Narrative: Orthopedic specific examination: Patient's right lower extremity is shortened and externally rotated positive logroll unable to perform Stinchfield secondary to pain and discomfort. Gross motor and sensory intact distally she is able to wiggle toes plantarflex and dorsiflex ankle sensations intact light touch distally. Distal pulses palpable. Pain and tenderness to palpation at the right hip. No tenderness to palpation of the right knee foot or ankle. Negative pelvic compression test Secondary survey examination the bilateral upper extremities and left lower extremity unremarkable for any deformities or tenderness palpation to these joints. She has no spinal tenderness to palpation. Gross motor and sensory appears to be intact to the bilateral upper extremities and left lower extremity Data 11/12/23 13:27 11/12/23 13:27 Xray Ortho: My impression: X-rays multiple views of the right hip reviewed and personally interpreted by myself demonstrating a comminuted right intertrochanteric femur fracture A&P Assessment and plan (1) Closed intertrochanteric fracture of right hip: Qualifiers: Encounter type: initial encounter Fracture alignment: nondisplaced Qualified Code(s): S72.144A - Nondisplaced intertrochanteric fracture of right femur, initial encounter for closed fracture Plan Plan to proceed to the OR tomorrow for right hip trochanteric femur nail Reviewed imaging Reviewed labs Hospitalist on board as primary and admitted patient Nonweightbearing right lower extremity Pain control Hold a.m. anticoagulation Plan for OR tomorrow, n.p.o. at midnight Patient is a pleasant 83-year-old female who lives at home by herself. She sustained a ground-level fall denies any prodromal symptoms or loss of consciousness has severe right hip pain as well as a lower extremity deformity found to have a right intertrochanteric femur fracture we talked about treatment options with her as well as her family at bedside she understands nonoperative and operative intervention. In order for earlier mobilization as well as pain control would recommend surgical intervention. She understands the ins and outs of procedure the risk benefits complication alternatives of surgery. Risk of surgery include not limited to make a better make it worse injury to nerves vessels or tendons, malunion, nonunion, hardware failure, infection. Understanding risk of surgery she elects to proceed all questions been answered at this time we will proceed with a right hip long trochanteric femur nail tomorrow. All questions answered. Coding Level of Care Code Acute Code for Chg Fwd Diagnoses Closed intertrochanteric fracture of right hip S72.144A Encounter type: initial encounter Fracture alignment: nondisplaced Time Spent (min) 45
[2023-11-12] MEDS: ondansetron 2 mg/ML SDV 2 mL 4 MG IVP ×2 (16:47→20:26)
[2023-11-12] MEDS: HYDROmorphone 1 mg/mL INJ 1 mL IVP (16:47)
[2023-11-12 17:10] LABS: Glucose Point of Care 154 mg/dL (70-110)
--- NOTE | 2023-11-12 17:28 | P.HP_ITS ---
Providers/Chief Complaint 2 Admitting Physician: Susan Ellis MD Primary Care Provider: Ryann Tovar MD Chief Complaint: Fall History of Present Illness Geronimo Fair is a 83 year old female sustained a ground-level fall, presented from home, she was not able to bear weight on right side, present to the ER she was diagnosed with right-sided hip fracture, Dr. Ji will discharge intervention the morning, patient does not take any blood thinners, patient denies prodromal symptoms such as loss of consciousness, syncope, seizure, chest pain, shortness of breath, vertigo, nausea, vomiting or chest pain. Patient is diabetic take insulin 48 units along with levothyroxine and antihypertensive regimen. CBC BMP is unremarkable, imaging consistent with right hip fracture. Patient is stating that she was scheduled for stress test and echo on Friday because she will experiencing chest pain, she is stating that after her blood pressure was managed her chest pain improved. I am going to order stat echo Dr. Gilbert she is aware we will ask him to read the report overnight Will request x-rays in the morning Will ask Dr. Valle to delay surgery and will get the stress report in the morning Review of Systems 2 Const: Denies: fever(s) Eyes: Denies: change in vision ENMT: Denies: throat pain Card: Denies: chest pain Resp: Denies: dyspnea GI: Denies: abdominal pain : Denies: flank pain Musc: Denies: neck pain Skin/Breast: Denies: rash Neuro: Denies: headache(s) Medications/Allergies Home Medications Medication Instructions Recorded Confirmed Last Taken Type losartan 100 mg tablet 100 mg PO QAM 08/14/19 11/12/23 11/12/23 History propranolol 80 mg capsule,extended 80 mg PO BEDTIME 08/14/19 11/12/23 11/11/23 History release 24 hr alprazolam 0.25 mg tablet 0.5 mg PO BEDTIME 03/14/23 11/12/23 11/11/23 History pantoprazole 40 mg tablet,delayed 40 mg PO QPM 03/14/23 11/12/23 11/11/23 History release acetaminophen 500 mg tablet 1,000 mg PO Q6H PRN Pain 10/07/23 11/12/23 10/07/23 06:30 History 1000 mg aspirin 81 mg tablet,delayed 81 mg PO QAM 10/07/23 11/12/23 11/12/23 History release diclofenac sodium 1 % topical gel 2 g topical QID PRN Pain 10/07/23 11/12/23 10/07/23 History (Aspercreme Arthritis Pain) rosuvastatin 5 mg tablet 5 mg PO BEDTIME 10/07/23 11/12/23 11/11/23 History semaglutide 2 mg/dose (8 mg/3 mL) 2 mg SUBCUT Q7D 10/07/23 11/12/23 11/07/23 History subcutaneous pen injector (Ozempic) vit C 250 mg-vit E 90 mg-zinc 40 1 tab PO BID 10/07/23 11/12/23 11/12/23 History mg-copper 1 up-qncunc-rrlnht capsule (PreserVision AREDS-2) amlodipine 5 mg tablet 5 mg PO QPM 11/03/23 11/12/23 11/11/23 History insulin glargine 100 unit/mL (3 48 unit SUBCUT QAM 11/03/23 11/12/23 11/12/23 History mL) subcutaneous pen (Lantus Solostar U-100 Insulin) levothyroxine 137 mcg tablet 137 mcg PO QAM 11/12/23 11/12/23 11/12/23 History Allergies Allergy/AdvReac Type Severity Reaction Status Date / Time No Known Allergies Allergy Verified 11/03/23 12:29 PFSH Acute 2 PFSH: Medical History Nausea Abdominal pain Hypertensive urgency Surgical History No pertinent past surgical history Family History Son Hypertension Daughter Hypertension Social History Smoking and tobacco/nicotine status: never used tobacco/nicotine Alcohol intake: never Substance/Drug Use: never Vitals/I&O/Wt Last Vital Signs Temp 98.1 F 11/12/23 17:15 Pulse 73 11/12/23 17:15 Resp 16 11/12/23 17:15 BP 131/89 11/12/23 17:15 Pulse Ox 94 11/12/23 17:15 O2 Del Method Room Air 11/12/23 13:38 Weight last 48 hrs Weight 88.904 kg Physical Exam 2 Narrative: Right leg is shortened and rotated Awake and alert GCS 15 Pleasant Normotensive Randhawa catheter in place No sign of vascular inflammation GCS 15 S1, S2 Urinary Catheter Management: Randhawa: Cath Placed During This Visit: yes Urinary Catheter Date of Insertion: 11/12/23 Urinary Catheter Time of Insertion: 16:16 Data 11/12/23 13:27 11/12/23 13:27 A&P Assessment and plan (1) Closed intertrochanteric fracture of right hip: Qualifiers: Encounter type: initial encounter Fracture alignment: nondisplaced Qualified Code(s): S72.144A - Nondisplaced intertrochanteric fracture of right femur, initial encounter for closed fracture Plan Right-sided hip fracture Ground-level fall No prodromal symptoms No need of PE operative cardiac clearance at this point Patient is full code N.p.o. at midnight Continue antihypertensive regimen Will start gentle fluid hydration Dr. Valle consulted Opioids along bowel regimen CBC BMP unremarkable Agreeable for surgical intervention Cardiac diet for now n.p.o. at midnight Preoperative clearances needed will request echo on stat basis Dr. Gilbert is aware, will require stress in the morning as well hopefully by 9 to 10 AM will have stress report as well I will ask Dr. Zuniga to wait until stress score comes back There is no need to cancel surgery as of now Attestations 2 Medical Necessity Statement*: More than 2 midnights anticipated Diagnoses Closed intertrochanteric fracture of right hip S72.144A Encounter type: initial encounter Fracture alignment: nondisplaced
[2023-11-12] MEDS: sodium chloride 0.9% 1,000 ML 75 ML IV (17:50)
[2023-11-12 17:53] LABS: Add Urine Microscopic? YES; Bilirubin Urine Neg (Negative); Blood Urine Neg (Negative); Glucose Urine UA Norm (Normal); Ketones Urine Negative (Negative); Leukocyte Esterase Urine Negative (Negative); Nitrate Urine Positive (Negative); Protein Urine Neg (Negative); Specific Gravity, Urine 1.015 (1.005-1.030); Urine Appearance Cloudy (CLEAR); Urine Color Light yellow (Yellow); Urobilinogen Urine Norm (Negative); pH Urine 7 (5-7)
[2023-11-12 18:05] LABS: Add Urine Culture? Yes; Bacteria Urine 3+ /hpf; Mucus Urine TRACE /hpf; RBC Urine 0-4 /hpf (0-2); Transitional Epi Cells Urine 0-4 /hpf; WBC Urine 0-4 /hpf (0-5)
[2023-11-12] MEDS: scopolamine 1.5 Patch 1 PATCH TRANSDERMA (18:19)
--- NOTE | 2023-11-12 18:29 | USCV_ITS ---
Geronimo Fair Age: 83 Gender: F : 1940 Exam Date: 11/12/2023 20:22 Ordering Phys: Billy Saez MD Technologist: PHYLLIS [place] [facility] [place]: PRE-OP CLEARANCE right hip fracture. No history of cardiac intervention per patient. BP: 159 / 78 HR: 79 Rhythm: Sinus Technical Quality: Adequate MEASUREMENTS (Male / Female) Normal Values 2D ECHO LV Diastolic Diameter PLAX 3.2 cm 4.2 - 5.9 / 3.9 - 5.3 cm IVS Diastolic Thickness 1.8 cm 0.6 - 1.0 / 0.6 - 0.9 cm IVS Systolic Thickness 2.1 cm LVPW Diastolic Thickness 1.5 cm 0.6 - 1.0 / 0.6 - 0.9 cm LVPW Systolic Thickness 1.8 cm LVOT Diameter 1.9 cm LV Ejection Fraction 2D Teich 64.7 % LV Ejection Fraction MOD 2C 48.1 % LV Ejection Fraction 2C AL 50.5 % LA Diameter 3.2 cm Aorta at Sinotubular Diameter 3.2 cm IVC Diameter 2.0 cm M-MODE LA Ao Ratio MM 1.5 AV Cusp Separation MM 1.5 cm DOPPLER AV Peak Velocity 99.0 cm/s LVOT Peak Velocity 85.0 cm/s AV Area Cont Eq vti 2.5 cm squared AV Area Cont Eq pk 2.5 cm squared MV Peak Velocity 100.0 cm/s MV Area PHT 5.0 cm squared Mitral E to A Ratio 0.7 TV Peak E Velocity 93.0 cm/s PV Peak Velocity 74.0 cm/s FINDINGS Left Ventricle Normal left ventricular size and systolic function, EF 55%, visual . No regional wall motion abnormalities. Grade I/IV diastolic dysfunction (abnormal relaxation filling pattern), normal to mildly elevated filling pressures. Technically difficult study because of poor apical window Right Ventricle Possibly normal RV size and ejection fraction. Right Atrium Possibly of normal size Left Atrium Possibly of normal size Mitral Valve No gross abnormalities noted Aortic Valve No gross abnormalities noted Tricuspid Valve No gross abnormalities noted Pulmonic Valve No gross abnormalities noted Pericardium No pericardial effusion. Aorta Normal aortic annulus size. IVC Normal inferior vena cava. CONCLUSIONS Normal left ventricular size and systolic function, EF 55%, visual . No regional wall motion abnormalities. Grade I/IV diastolic dysfunction (abnormal relaxation filling pattern), normal to mildly elevated filling pressures. Possibly normal chamber sizes. No significant stenotic or regurgitant lesions There is no pericardial effusion. There are no intracardiac masses. Technically difficult study because of poor apical window. Dr Juliana Gilbert MD FACC (Electronically Signed) Final Date: 12 Nov 2023 21:59 S
--- NOTE | 2023-11-12 18:55 | ECG_ITS ---
[facility] Test Date: 2023-11-13 Pat Name: Geronimo Fair Department: Room: 266 Gender: Female [employer]: : 1940 Requested By: Billy Saez Order Number: [id number] Elias MD: Juliana Gilbert M.D. Interpretive Statements NAME OF STUDY: LEXISCAN SESTAMIBI STRESS TEST INDICATION:, PROCEDURE: At the baseline, the EKG revealed normal sinus rhythm with poor R wave progression. Some nonspecific T wave changes. The baseline heart was 66 bpm with a blood pressue of 113/61 mm of Hg Lexiscan was infused over a period of 20 seconds. A total of 0.4 milligrams of Lexiscan was infused. The stress phase was continued for a total of 5 minutes. Heart rate at the end of the stress phase was 67 bpm with a blood pressure 93/56 mm of Hg. The EKG at the peak infusion revealed no significant changes. Sestamibi was injected 20 seconds after the Lexiscan infusion. Heart rate at the end of the recovery phase was 90/50 bpm with a blood pressure of 70 mm of Hg. CONCLUSION: 1. No significant EKG changes with the LexiScan infusion 2. No LexiScan induced chest pain or cardiac arrhythmia 3. Normal blood pressure and heart rate response 4. Sestamibi/sestamibi perfusion scan pending; see separate report. Electronically Signed On 11-15-2023 13:27:46 CDT by Juliana Gilbert M.D. [id number]
[2023-11-12 20:40] LABS: Glucose Point of Care 235 mg/dL (70-110)
[2023-11-12] MEDS: metoprolol tartrate 25 mg Tablet PO (22:06)
[2023-11-12] MEDS: morphine IR 15 mg Tablet PO (23:59)
[2023-11-13] VITALS (26 sets, daily range): BP systolic 83–152; BP diastolic 44–92; PULSE 53–88; RESP 12–18; TEMP 36.5–37.3; O2SAT 91–97
[2023-11-13] MEDS: HYDROmorphone 1 mg/mL INJ 1 mL 0.400000000000000022 MG IVP (06:32)
[2023-11-13] MEDS: ondansetron 2 mg/ML SDV 2 mL 4 MG IVP ×2 (06:33→18:31)
[2023-11-13] MEDS: sodium chloride 0.9% 1,000 ML 75 ML IV (06:33)
[2023-11-13 06:35] LABS: Glucose Point of Care 117 mg/dL (70-110)
[2023-11-13 06:42] LABS: Basophils % 0.2 %; Eosinophils # 0.2 10^3/uL (0.0-0.8); Eosinophils % 2.3 %; Hematocrit 36.5 % (36-47); Lymphocytes # 2.7 10^3/uL (0.8-4.8); Lymphocytes % 30.7 %; Mean Corpuscular HGB Conc 33.7 g/dL (30-55); Mean Corpuscular Hemoglobin 32.5 pg (27-33); Mean Corpuscular Volume 96.3 fl (85-98); Mean Platelet Volume 9.5 fL (7.4-10.4); Monocytes % 11.2 %; Neutrophils % 55.1 %; Nucleated Red Blood Cells % 0 %; Platelet Count 205 10^3/cmm (157-399); Red Blood Count 3.79 10^6/uL (3.85-5.65); Red Cell Distribution Width 13.3 % (12.1-15.1); White Blood Count 8.72 10^3/uL (3.29-11.43)
[2023-11-13 07:00] LABS: Anion Gap 12.1 (5-19); Blood Urea Nitrogen 13 mg/dL (8-23); C Reactive Protein 21.8 mg/L (0.0-4.9); Calcium 8.3 mg/dL (8.5-10.5); Carbon Dioxide 25 mmol/L (22-29); Chloride 102 mmol/L (98-107); Creatinine Clr Calc Pharmacy 59.0861; Glucose 129 mg/dL (65-115); Magnesium 1.8 mg/dL (1.7-2.3); Osmolality Calculated 282 mOsm/kg (285-295); Potassium 4.1 mmol/L (3.5-5.1); Sodium 135 mmol/L (136-145)
[2023-11-13] MEDS: regadenoson 0.4 Mg/5 ml Syringe 0.400000000000000022 MG IVP (08:03)
[2023-11-13] MEDS: metoprolol tartrate 25 mg Tablet PO ×2 (09:17→20:18)
[2023-11-13] MEDS: amlodipine 10 mg Tablet PO (09:17)
[2023-11-13] MEDS: sennosides-docusate Tablet 1 TAB PO (09:17)
[2023-11-13] MEDS: morphine IR 15 mg Tablet PO (09:17)
--- NOTE | 2023-11-13 10:52 | PC.NURSE ---
Taken to surgery pre-op
[2023-11-13 11:08] LABS: Glucose Point of Care 103 mg/dL (70-110)
[2023-11-13] MEDS: sodium chloride 0.9% 1,000 ML 30 ML IV (11:10)
[2023-11-13] MEDS: acetaminophen 1,000 MG/100 ML PIGGYBACK 400 MG IV (11:14)
[2023-11-13] MEDS: ketorolac 30 mg/mL INJ IVP (11:15)
--- NOTE | 2023-11-13 11:25 | ANES.PREANE2 ---
Pre-Anesthetic Assessment Height/Weight: Height 1.6 m Weight 93.984 kg Temp Pulse Resp BP Pulse Ox O2 Del Method 99 F 66 18 128/70 93 Room Air 11/13/23 11:00 11/13/23 11:00 11/13/23 11:00 11/13/23 11:00 11/13/23 11:00 11/13/23 11:00 Preop Diagnosis: Right intertrochanteric femur fracture Operation Date: 11/13/23 11:55 Proposed Procedures p Trochanteric Femoral Nail(Right) - Vinh Leonard, Familial anesthetic complications: none Was Beta Kasandra taken within 24 hours: Yes Was Clonidine taken within 24 hours: N/A Last intake: Intake Last Liquid Date 11/13/23 Last Liquid Time 06:30 Last Solid Date 11/12/23 Last Solid Time 12:00 Social No alcohol and No tobacco Exam alert, oriented x 3, clear to auscultation bilaterally and regular rate & rhythm Airway Submandibular: within normal limits Cervical ROM: within normal limits Mallampati: Class II Dentition: false (upper) CV/HEM Hypertension EF 55%, neg stress test Metabolic Diabetes Mellitus, Hyperlipidemia, Morbid Obesity and Thyroid Disease Anesthetic Plan ASA status: 3 Anesthesia: Regional (specify below) (SAB) Medications/Allergies Home Medications Medication Instructions Recorded Confirmed Last Taken Type losartan 100 mg tablet 100 mg PO QAM 08/14/19 11/12/23 11/12/23 History propranolol 80 mg capsule,extended 80 mg PO BEDTIME 08/14/19 11/12/23 11/11/23 History release 24 hr alprazolam 0.25 mg tablet 0.5 mg PO BEDTIME 03/14/23 11/12/23 11/11/23 History pantoprazole 40 mg tablet,delayed 40 mg PO QPM 03/14/23 11/12/23 11/11/23 History release acetaminophen 500 mg tablet 1,000 mg PO Q6H PRN Pain 10/07/23 11/12/23 10/07/23 06:30 History 1000 mg aspirin 81 mg tablet,delayed 81 mg PO QAM 10/07/23 11/12/23 11/12/23 History release diclofenac sodium 1 % topical gel 2 g topical QID PRN Pain 10/07/23 11/12/23 10/07/23 History (Aspercreme Arthritis Pain) rosuvastatin 5 mg tablet 5 mg PO BEDTIME 10/07/23 11/12/23 11/11/23 History semaglutide 2 mg/dose (8 mg/3 mL) 2 mg SUBCUT Q7D 10/07/23 11/12/23 11/07/23 History subcutaneous pen injector (Ozempic) vit C 250 mg-vit E 90 mg-zinc 40 1 tab PO BID 10/07/23 11/12/23 11/12/23 History mg-copper 1 xt-ixsuyl-jfsecd capsule (PreserVision AREDS-2) amlodipine 5 mg tablet 5 mg PO QPM 11/03/23 11/12/23 11/11/23 History insulin glargine 100 unit/mL (3 48 unit SUBCUT QAM 11/03/23 11/12/23 11/12/23 History mL) subcutaneous pen (Lantus Solostar U-100 Insulin) levothyroxine 137 mcg tablet 137 mcg PO QAM 11/12/23 11/12/23 11/12/23 History Allergies Allergy/AdvReac Type Severity Reaction Status Date / Time No Known Allergies Allergy Verified 11/03/23 12:29 Current Medications Generic Name Dose Route Start Last Admin Trade Name Freq PRN Reason Stop Dose Admin Amlodipine Besylate 10 mg 11/13/23 09:00 11/13/23 09:17 Amlodipine 10 Mg Tablet PO 10 mg DAILY SHON Administration Hydromorphone HCl 0.4 mg 11/12/23 17:18 11/13/23 06:32 Hydromorphone 1 Mg/Ml Inj 1 Ml IVP 0.4 mg Q4H PRN Administration hip pain Sodium Chloride 1,000 mls @ 75 mls/hr 11/12/23 17:18 11/13/23 06:33 Sodium Chloride 0.9% IV 75 mls/hr .[id number] SHON Administration Sodium Chloride 1,000 mls @ 30 mls/hr 11/13/23 11:00 11/13/23 11:10 Sodium Chloride 0.9% IV 11/14/23 10:59 30 mls/hr .Q24H SHON Administration Insulin Human Lispro 0 unit 11/13/23 08:00 11/13/23 09:15 Insulin Lispro 100 Unit/1 Ml SUBCUT Not Given TIDWM SHON Protocol Metoprolol Tartrate 25 mg 11/12/23 21:00 11/13/23 09:17 Metoprolol Tartrate 25 Mg Tablet PO 25 mg BID@0900,2100 SHON Administration Morphine Sulfate 15 mg 11/12/23 17:18 11/13/23 09:17 Morphine Ir 15 Mg Tablet PO 15 mg Q6H PRN Administration MODERATE PAIN Ondansetron HCl 4 mg 11/12/23 17:18 11/13/23 06:33 Ondansetron 2 Mg/Ml Sdv 2 Ml IVP 4 mg Q6H PRN Administration NAUSEA AND VOMITING Scopolamine 1 patch 11/12/23 18:00 11/12/23 18:19 Scopolamine 1.5 Patch TRANSDERMA 1 patch Q3D SHON Administration Senna/Docusate Sodium 1 tab 11/13/23 09:00 11/13/23 09:17 Sennosides-Docusate Tablet PO 1 tab DAILY SHON Administration PFSH Anesthesia Medical History Nausea Abdominal pain Hypertensive urgency Surgical History No pertinent past surgical history Family History Son Hypertension Daughter Hypertension Social History Smoking and tobacco/nicotine status: never used tobacco/nicotine Alcohol intake: never Substance/Drug Use: never Data Anesthesia 11/13/23 05:57 11/13/23 05:57 Short CBC 11/12/23 11/13/23 Range/Units 13:27 05:57 WBC 11.10 8.72 (3.29-11.43) 10^3/uL Hgb 14.40 12.30 (11.27-16.99) g/dL Hct 41.2 36.5 (36-47) % MCV 93.8 96.3 (85-98) fl Plt Count 203 205 (157-399) 10^3/cmm Neut % (Auto) 60.2 55.1 % Neut # (Auto) 6.69 4.80 (1.8-7.7) 10^3/uL BMP 11/12/23 11/13/23 13:27 05:57 Sodium 135 L 135 L Potassium 4.6 4.1 Chloride 101 102 Carbon Dioxide 24 25 BUN 12 13 Creatinine 0.8 0.8 Glucose 217 H 129 H Calcium 9.3 8.3 L Cardiac Enzymes 11/12/23 Range/Units 13:27 Creatine Kinase 134 (26-192) U/L Liver Function 11/12/23 Range/Units 13:27 Total Bilirubin 0.4 (0.15-1.2) mg/dL AST 21 (0-32) U/L ALT 29 (0-33) U/L Alkaline Phosphatase 90 (35-105) U/L Albumin 4.1 (3.5-5.2) g/dL Urine 11/12/23 Range/Units 17:24 Urine Color Light yellow (Yellow) Urine Appearance Cloudy A (CLEAR) Urine pH 7 (5-7) Ur Specific Hollenberg 1.015 (1.005-1.030) Urine Protein Neg (Negative) Urine Glucose (UA) Norm (Normal) Urine Ketones Negative (Negative) Urine Nitrate Positive H (Negative) Urine Bilirubin Neg (Negative) Ur Leukocyte Esterase Negative (Negative) Urine RBC 0-4 H (0-2) /hpf Urine WBC 0-4 H (0-5) /hpf Blood Bank 11/12/23 17:15 Blood Type O Positive Rho(D) Type Rh positive Antibody Screen Negative Coags 11/12/23 11/13/23 13:27 05:57 PT 13.60 INR 1.01 APTT 30.3 C-Reactive Protein 21.8 H Cardiac Studies: Echocardiogram 11/12/23 Sestamibi Stress Test (Cardiology) 11/12/23
--- NOTE | 2023-11-13 12:17 | W.PM.OPSUD ---
Surgery/Procedure H&P Update DATE OF PROCEDURE: November 13, 2023 DATE H&P PERFORMED: 11/12/23 H&P UPDATE INFORMATION: I have reviewed H&P completed within last 30 days, I have examined patient prior to procedure and No changes to prior documentation CHANGES TO PREVIOUS DOCUMENTATION: Patient is cleared and passed her stress test medically optimized from internal medicine standpoint to proceed with surgery today. Discussed the ins and outs procedure the risk benefits complication alternatives of surgery and through shared decision-making patient elected proceed with surgical intervention. All questions answered. PREOP DIAGNOSIS: Right intertrochanteric femur fracture PRIMARY INDICATION FOR PROCEDURE: Right intertrochanteric femur fracture PLANNED PROCEDURE: Operation Date: 11/13/23 11:55 Proposed Procedures p Trochanteric Femoral Nail(Right) - Vinh Valle DO
--- NOTE | 2023-11-13 12:25 | PM.PN ---
Subjective Subjective: Echo unremarkable Stress test showed possible infarct Patient had a chest pain 1 week ago and she had a stress test and echo scheduled for Friday this week No active chest pain Mild risk factor for perioperative cardiac events Vitals/I&O/Wt Last Vital Signs Temp 99 F 11/13/23 11:00 Pulse 66 11/13/23 11:00 Resp 18 11/13/23 11:00 BP 128/70 11/13/23 11:00 Pulse Ox 93 11/13/23 11:00 O2 Del Method Room Air 11/13/23 11:00 11/12/23 11/13/23 11/13/23 22:59 06:59 14:59 Intake Total 100 / 100 1003.75 / 1103.75 100 / 100 Output Total 325 / 325 225 / 550 Balance -225 / -225 778.75 / 553.75 100 / 100 Weight last 48 hrs Weight 93.984 kg Weight 89.981 kg Weight 88.904 kg Physical Exam Narrative: Pleasant Nonfocal neuroexam Complaining of pain in her right knee GCS 15 Nonfocal neuroexam Currently on room air Hemodynamic stable S1, S2 Urinary Catheter Management: Randhawa: Cath Placed During This Visit: yes Reason for Continuing Indwelling Catheter: Other Urinary Catheter Date of Insertion: 11/12/23 Urinary Catheter Time of Insertion: 16:16 Data 11/13/23 05:57 11/13/23 05:57 A&P Assessment and plan (1) Closed intertrochanteric fracture of right hip: Qualifiers: Encounter type: initial encounter Fracture alignment: nondisplaced Qualified Code(s): S72.144A - Nondisplaced intertrochanteric fracture of right femur, initial encounter for closed fracture Plan Echo, stress test reviewed with the plasma processing centrifuge operator Patient can go for the surgery with mild perioperative cardiac event risk Hemodynamic stable Active chest pain No shortness of breath Doing well on room air Hemodynamic stable She may get opioids Continue bowel regimen Dr. Valle, Dr. Gilbert notified Attestations Medical Necessity Statement*: Continue medical management Diagnoses Closed intertrochanteric fracture of right hip S72.144A Encounter type: initial encounter Fracture alignment: nondisplaced
[2023-11-13] MEDS: ceFAZolin 2,000 MG in sodium chloride 0.9% (plus) 50 ML 100 MG IV ×2 (12:30→20:18)
[2023-11-13] MEDS: tranexamic acid 1,000 mg/10mL SDV 1000 MG IV (12:56)
--- NOTE | 2023-11-13 14:22 | W.PM.BPON ---
Date of Procedure: [11/13/2023] Surgeon: Vinh Valle DO Area Director Of Home Health Sales(s): Zaid Valle PA-C Procedure(s) performed: Right long trochanteric femur nail Findings of the procedure(s): Patient was found to have right intertrochanteric femur fracture with subtrochanteric extension underwent right long trochanteric femur nail without issues or complications. Patient taken to PACU in stable condition. Patient received spinal anesthesia Estimated blood loss: 75 mL Specimen(s) removed: None Post-operative diagnosis: Right intertrochanteric femur fracture with subtrochanteric extension
--- NOTE | 2023-11-13 14:24 | PM.OP ---
Operative Report Date of procedure: November 13, 2023 Surgeon: Vinh Valle DO Medical Consultant: Zaid Valle PA-C: PA was necessary for assistance in this case with leg positioning as well as reduction, as well as assistance in implantation. Procedure: Preoperative diagnosis: Right displaced intertrochanteric femur fracture with subtrochanteric extension Post-op diagnosis: Same Procedure done: ?Right intertrochanteric with subtrochanteric extension femur fracture ORIF with cephalomedullary nail Implants: [place] gamma nail?long?10 mm x 380 mm x 125 degree Lag screw 10.5 mm x 105 mm Distal locking screw 5 mm x 52.5 and 47.5 mm Surgeon: Vinh Valle DO Estimated blood loss: 75 mL IV fluids: See anesthesia record Urine output: See anesthesia record Complications: See operative report Findings: See operative report narrative Condition: stable Disposition: Floor Brief History: Patient sustained a fall and was found to have a Right intertrochanteric hip fx. Pt has been unable to bear weight, Right hip/lower extremity shortened and externally rotated.? At this point time Pt was admitted by the hospitalist team and orthopedics was consulted.? Refer to consult note for detailed HPI.? We talked about treatment options as far as nonoperative and operative intervention. Patient medically optimized by the hospitalist team prior to surgery. Recommend Right hip?trochanteric femur nail.? At this point time patient and family would like to pursue surgical intervention for benefits of pain control and earlier mobilization.? ?Patient understands the ins and outs of procedure, the risk benefits complication alternatives of surgical nonsurgical treatment options.? Understanding risk of surgery pt and family agrees to proceed with surgical intervention all questions answered.? Consent obtained. Procedure: Patient seen evaluated in the preoperative holding area.? Consent was obtained.? Correct extremity was then marked.? Once cleared by anesthesia and the hospitalist team patient was taken back to the operative suite.? Patient underwent anesthesia per the anesthesia department.? Once appropriately anesthetized patient was placed on a fracture [place] table.? Patient was appropriately secured to the bed.? All bony prominences were well-padded.? At this point time patient received appropriate preoperative antibiotics.? Final timeout was performed.? Prior to beginning surgery a standard closed reduction maneuver was placed on the [place] table and large C-arm was brought in.? After performing a closed reduction maneuver there was able to achieve satisfactory reduction of Right intertrochanteric femur fracture.? Fracture site did? extend into the subtrochanteric region as result plan was for a?Long?nail.? ?This point time the Right lower extremity was then prepped and draped in standard orthopedic fashion. A standard?longitudinal incision was made just proximal to the greater?trochanter roughly 4 cm in length sharp scalpel vision was made through skin and subcutaneous tissue.? I then utilized a blunt [place] to split? fascia and mobilized directly down to the greater?trochanter.? I then inserted my starting guidewire which was placed appropriate starting position the tip of the greater?trochanter.? This was advanced in AP and lateral films to be in center center position and advanced to the level lesser?trochanter.? This was confirmed to be in center center position on AP and lateral imaging.? Once this was done I then introduced my opening reamer which was then subsequently guide pin removed.? Next a?long?ball-tipped guidewire was then placed in center center position distally right at the superior pole the patella.? I then took a measurement which was 380 mm for length of the?long?nail screw.? The fracture reduction was maintained during reaming and I subsequently utilized flexible reamers and reamed sequentially up to a size 12 mm and elected for a 10 mm nail.? I selected a 10 mm x 380 mm x 125 degree. At this point time the nail was then loaded onto the [place] gamma?trochanteric nail guide.? This was placed within the canal and confirmed with XR and the setscrew was then gently placed not locked.? The nail was then impacted to appropriate depth .? X-rays were taken confirming appropriate positioning of the nail distally and reduction was maintained.? ?At this point time I then inserted my lag screw guide and subsequently made a small incision through skin and subcutaneous tissue splitting the IT band?longitudinally and the guide was placed directly onto bone.? Next I then subsequently placed the guidewire in center center position in the head with an appropriate tip to apex distance this was confirmed with multiple orthogonal images.? Once I was satisfied with my planned lag screw placement I then measured which was 105 mm.? I then set my cannulated drill and subsequently reamed this into the head at appropriate depth.? I then had my rep open the 10.5 mm x 105 mm lag screw which was then opened on the back table and subsequently screwed into place over my cannulated drill guide.? This was placed with excellent tip to apex distance.? Next I then utilized the compressing device and subsequently compressed my fracture after I let off traction.? This had excellent fracture compression and opposition and closing down to my fracture line.? Next I then locked the nail by locking my setscrew.? This point time the guidewire as well as the sleeve was then removed.? Next I obtained perfect circles distally at the knee to lock the nail distally.? I selected to first place my static screw in perfect [place] technique small stab incision was made blunt dissection of the bone and then utilizing a drill and perfect [place] technique drill bit was then advanced and confirmed to be within the nail utilizing fluoroscopic imaging I then subsequently drilled measured and placed appropriate length static locking screw.? I then subsequently added an additional screw in eccentric fashion for possible dynamization later if necessary this is placed at the central to distal portion of the oblong hole subsequently drilled measured and placed appropriate length screw.? This completed my construct fixation the guide was subsequently removed.? And final images were taken.? AP and lateral of the Right intertrochanteric femur fracture which showed stable reduction and stable fixation.? Incision was then thoroughly irrigated.? Hemostasis was maintained with electrocautery.? I then once again thoroughly irrigated the incisions and then subsequently closed in layered fashion of 0 Vicryl 2-0 Vicryl and dwight.? Silverlon dressings applied.? Patient was then awakened from anesthesia transported onto the hospital bed and taken to PACU in stable condition.? Patient tolerated procedure without complications. Disposition: Patient taken to PACU in stable condition.? Postoperatively,? Patient to receive appropriate discharge instructions as well as pain medication DVT prophylaxis postoperatively.? She will be allowed weightbearing as tolerated Right lower extremity.? Will receive appropriate postoperative antibiotics, PT/OT.? Patient to follow-up in the orthopedic office in 2 weeks.? Patients family understands and agrees with current plan.? All questions answered.
--- NOTE | 2023-11-13 14:29 | XR_ITS ---
WS: [id number] Right femur and thigh, AP and lateral views, 11/13/2023 Clinical Data: postop ORIF troch nail femur Comparison: Right thigh and femur, 11/12/2023 Findings: The intertrochanteric fracture of the right hip is repaired with an oblique femoral neck nail and a l say proximal intertrochanteric shalonda. The shalonda is fixed distally with 2 orthopedic screws. There are sub cutaneous surgical dwight at the operative sites. Vascular calcification is seen. XR/XR femur RT min 2V* [id number] Impression: Internal fixation of right hip intertrochanteric fracture.
[2023-11-13] MEDS: ePHEDrine 50 mg/mL Inj 25 MG IM (15:01)
--- NOTE | 2023-11-13 15:09 | ANE.PACU2 ---
Inpatient post-anesthesia follow up: Airway intact: Yes Vital signs: Temperature 98.2 F Pulse Rate 60 Respiratory Rate 18 Blood Pressure 101/65 Pulse Oximetry 94 Oxygen Delivery Me thod Room Air Oxygen Flow Rate Fraction of Inspir ed Oxygen Hydration adequate: Yes Nausea and vomiting: No Pain level: 2 Mental status: Baseline
[2023-11-13] MEDS: fentaNYL 50 mcg/mL INJ 2mL IVP (15:15)
[2023-11-13 16:01] LABS: Glucose Point of Care 70 mg/dL (70-110)
--- NOTE | 2023-11-13 16:07 | PC.NURSE ---
[id number] Pt c/o pain in rt shoulder and was uncomfortable. Pt was repositioned and warm blankets given. Pt then c/o generalized chest discomfort. I notified Dr Iqbal and he said that she had been having that and had an ECHO and a stress test that both were ok. He advised me to give her some pain medicine. This eased her pain some, but she continued to be uncomfortable. She asked about her blood sugar, so I checked that and it was 70. I gave her some orange juice. Over all she was feeling better before I took her up to her room. Her vital signs were stable. I relayed all of this to her nurse, oJjo, after we got the patient to the room.
[2023-11-13 16:18] LABS: Glucose Point of Care 75 mg/dL (70-110)
[2023-11-13 16:42] LABS: Glucose Point of Care 64 mg/dL (70-110)
[2023-11-13] MEDS: dextrose 5 % 500 ML 100 ML IV (16:47)
[2023-11-13 17:11] LABS: Glucose Point of Care 105 mg/dL (70-110)
[2023-11-13] MEDS: chlorhexidine gluconate 0.12% Btl 473 mL 30 ML MUCOUS MEM ×2 (17:16→20:23)
[2023-11-13] MEDS: mupirocin oint 22 gm 1 APPLIC NASAL (17:16)
[2023-11-13] MEDS: docusate sodium 100 mg Capsule PO (17:16)
[2023-11-13] MEDS: iron polysaccharide complex 150 mg Capsule PO (17:16)
[2023-11-13] MEDS: calcium carb-vit d 600mg/400unit 1 Tablet 1 EACH PO (17:16)
[2023-11-13] MEDS: oxyCODONE 5 mg IR Tab/Cap PO (18:32)
[2023-11-13] MEDS: HYDROmorphone 1 mg/mL INJ 1 mL 0.5 MG IVP (18:32)
--- NOTE | 2023-11-13 18:55 | NMCV_ITS ---
NM newton perf SPECT r/s* [id number] Geronimo Fair Age: 83 Gender: F : 1940 Exam Date: 11/13/2023 18:55 Ordering Phys: Billy Saez MD Technologist: STACIE Maldonado Exam Location: [facility] Indications: CHEST PAIN/SURGICAL CLEARANCE STRESS TEST Please see separate stress test report in [facility] for full findings IMAGE PROTOCOL Rest/Stress 1 Lexiscan Day Radiopharmaceutical Dose (mCi) Administration Site Administered by Rest: Tc-99m 10.6 IV STACIE Warren Sestamibi Stress:Tc-99m 32.9 IV STACIE Warren Sestamibi Rest: 13-Nov-2023 60 Discovery 630 Stress: 13-Nov-2023 30 Discovery 630 0.4mg Lexiscan. Supine position only as patient was unable to lay prone. SPECT RESULTS Technical Quality: Excellent Raw Data Analysis: Normal Image Corrections: No attenuation or motion correction applied Summed Stress Score: 5 Summed Rest Score: 7 Summed Difference Score: 1 PERFUSION FINDINGS Small to moderate area of moderately decreased tracer uptake was noted in the mid anterolateral, apical lateral and LV apex. Subtle reversibility was noted in the mid anterolateral region. The summed ischemic score was 1 FUNCTIONAL RESULTS (calculated via Gated SPECT) Stress Image LV EF (%): 75 Stress EDV (mL):67 TID: 0.84 Stress ESV (mL):17 FUNCTIONAL FINDINGS: Segmental wall motion analysis revealed no gross wall motion abnormality. IMPRESSIONS 1. 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 2. Normal LV ejection fraction of a 75% 3. LV wall motion analysis revealing no gross wall motion abnormalities. 4. Normal LV volume No similar previous studies are available for comparison Dr Juliana Gilbert MD [facility] (Electronically Signed) Final Date: 13 Nov 2023 10:36 S
[2023-11-13] MEDS: tranexamic acid 1,000 MG/100 ML PREMIX 600 MG IV (20:22)
[2023-11-13 20:26] LABS: Glucose Point of Care 124 mg/dL (70-110)
[2023-11-13] MEDS: ketorolac 30 mg/mL INJ 15 MG IVP (23:52)
[2023-11-13] MEDS: TRAMadol 50 mg Tablet PO (23:52)
[2023-11-14] VITALS (12 sets, daily range): BP systolic 95–117; BP diastolic 54–68; PULSE 77–84; RESP 16–18; TEMP 36.8–38.6; O2SAT 90–96
[2023-11-14] MEDS: sodium chloride 0.9% 1,000 ML 75 ML IV (02:44)
[2023-11-14] MEDS: acetaminophen 500 mg Tablet PO (02:45)
[2023-11-14] MEDS: enoxaparin 30 mg/0.3 mL Syringe SUBCUT (02:46)
[2023-11-14] MEDS: ceFAZolin 2,000 MG in sodium chloride 0.9% (plus) 50 ML 100 MG IV ×2 (05:23→11:36)
[2023-11-14 05:39] LABS: Basophils % 0.2 %; Eosinophils # 0.1 10^3/uL (0.0-0.8); Eosinophils % 0.9 %; Hematocrit 27.3 % (36-47); Lymphocytes # 2.2 10^3/uL (0.8-4.8); Lymphocytes % 20.1 %; Mean Corpuscular HGB Conc 33.7 g/dL (30-55); Mean Corpuscular Hemoglobin 32.4 pg (27-33); Mean Corpuscular Volume 96.1 fl (85-98); Mean Platelet Volume 10.2 fL (7.4-10.4); Monocytes % 9.3 %; Neutrophils # 7.66 10^3/uL (1.8-7.7); Neutrophils % 69.1 %; Nucleated Red Blood Cells % 0 %; Platelet Count 141 10^3/cmm (157-399); Red Blood Count 2.84 10^6/uL (3.85-5.65); Red Cell Distribution Width 13.4 % (12.1-15.1); White Blood Count 11.07 10^3/uL (3.29-11.43)
[2023-11-14 05:58] LABS: Blood Urea Nitrogen 14 mg/dL (8-23); Calcium 8.1 mg/dL (8.5-10.5); Carbon Dioxide 23 mmol/L (22-29); Chloride 101 mmol/L (98-107); Glucose 129 mg/dL (65-115); Osmolality Calculated 280 mOsm/kg (285-295); Sodium 134 mmol/L (136-145)
[2023-11-14 06:00] LABS: Creatinine Clr Calc Pharmacy 49.4802
[2023-11-14 06:41] LABS: Glucose Point of Care 144 mg/dL (70-110)
[2023-11-14] MEDS: HYDROmorphone 1 mg/mL INJ 1 mL 0.400000000000000022 MG IVP ×2 (07:38→15:16)
[2023-11-14] MEDS: insulin lispro 100 unit/1 mL SUBCUT ×2 (08:55→18:09)
[2023-11-14] MEDS: docusate sodium 100 mg Capsule PO ×2 (08:56→18:09)
[2023-11-14] MEDS: multivitamin therapeutic Tablet 1 TAB PO (08:56)
[2023-11-14] MEDS: calcium carb-vit d 600mg/400unit 1 Tablet 1 EACH PO ×2 (08:56→18:09)
[2023-11-14] MEDS: amlodipine 10 mg Tablet PO (08:56)
[2023-11-14] MEDS: sennosides-docusate Tablet 1 TAB PO (08:56)
[2023-11-14] MEDS: chlorhexidine gluconate 0.12% Btl 473 mL 30 ML MUCOUS MEM ×3 (08:56→20:52)
[2023-11-14] MEDS: iron polysaccharide complex 150 mg Capsule PO ×2 (08:56→18:09)
[2023-11-14] MEDS: mupirocin oint 22 gm 1 APPLIC NASAL ×2 (08:57→18:09)
--- NOTE | 2023-11-14 11:26 | P.PN_ITS ---
Subjective 2 Subjective: Patient is wanting to go to [facility], she will be able to go until Friday most likely No postoperative complication She was complaining of pain She is okay to receive pain medications Not endorsing constipation Vitals/I&O/Wt Last Vital Signs Temp 98.5 F 11/14/23 07:56 Pulse 80 11/14/23 07:56 Resp 16 11/14/23 07:56 BP 96/54 11/14/23 07:56 Pulse Ox 96 11/14/23 08:22 O2 Del Method Room Air 11/14/23 08:22 11/13/23 11/14/23 11/14/23 22:59 06:59 14:59 Intake Total 1416.667 / 3866.667 878.75 / 4745.417 240 / 240 Output Total 650 / 925 200 / 1125 Balance 766.667 / 2941.667 678.75 / 3620.417 240 / 240 Weight last 48 hrs Weight 102.058 kg Weight 93.984 kg Weight 89.981 kg Weight 88.904 kg Physical Exam 2 Narrative: Awake and alert Sitting in a chair Family at the bedside S1, S2 Abdomen soft Currently room air Nonfocal neuroexam Urinary Catheter Management: Randhawa: Cath Placed During This Visit: yes Reason for Continuing Indwelling Catheter: Other Urinary Catheter Date of Insertion: 11/12/23 Urinary Catheter Time of Insertion: 16:16 Data 11/14/23 04:43 11/14/23 04:43 A&P Assessment and plan (1) Hypertensive urgency: (2) Nausea: (3) Abdominal pain: (4) Closed intertrochanteric fracture of right hip: Qualifiers: Encounter type: initial encounter Fracture alignment: nondisplaced Qualified Code(s): S72.144A - Nondisplaced intertrochanteric fracture of right femur, initial encounter for closed fracture Plan Stress test showing artifact related changes Patient is tolerating diet Discontinue IV fluids Continue opioids along bowel regimen Awaiting [facility] placement Randhawa catheter could be discontinued Continue levothyroxine Holding amlodipine patient is hypertensive this morning Change diet to consistent carb add insulin with sliding scale Attestations 2 Medical Necessity Statement*: Continue medical management Diagnoses Hypertensive urgency I16.0 Nausea R11.0 Abdominal pain R10.9 Closed intertrochanteric fracture of right hip S72.966A Encounter type: initial encounter Fracture alignment: nondisplaced
[2023-11-14 11:37] LABS: Glucose Point of Care 199 mg/dL (70-110)
--- NOTE | 2023-11-14 12:48 | P.PN_ITS ---
Subjective 2 Subjective: Patient seen and examined. Is gotten up with therapy patient is progressing appropriately. Still pain but improved with surgery and controlled with medications. Family planning on rehab facility at discharge Vitals/I&O/Wt Last Vital Signs Temp 98.5 F 11/14/23 07:56 Pulse 80 11/14/23 07:56 Resp 16 11/14/23 07:56 BP 96/54 11/14/23 07:56 Pulse Ox 96 11/14/23 08:22 O2 Del Method Room Air 11/14/23 08:22 11/13/23 11/14/23 11/14/23 22:59 06:59 14:59 Intake Total 1416.667 / 3866.667 878.75 / 4745.417 480 / 480 Output Total 650 / 925 200 / 1125 Balance 766.667 / 2941.667 678.75 / 3620.417 480 / 480 Weight last 48 hrs Weight 225 lb Weight 207 lb 3.2 oz Weight 198 lb 6 oz Weight 196 lb Physical Exam 2 Narrative: Examination the right hip demonstrates dressings are on in place clean dry and intact normal postoperative swelling about the right hip compartments are soft compressible patient able to wiggle toes plantarflex and dorsiflex ankle sensations intact light touch distally. Distal pulses palpable. Urinary Catheter Management: Randhawa: Cath Placed During This Visit: yes Reason for Continuing Indwelling Catheter: Other Urinary Catheter Date of Insertion: 11/12/23 Urinary Catheter Time of Insertion: 16:16 Data 11/14/23 04:43 11/14/23 04:43 Micro: Microbiology 11/12/23 17:24 Urine Culture - Preliminary Urine,Clean Catch Gram Negative Rods Xray Ortho: My impression: Postop x-rays of the right femur reviewed in person interpreted myself demonstrating a stable reduction and fixation with trochanteric femur nail of intertrochanteric femur fracture with subtrochanteric extension in satisfactory alignment with no evidence of hardware failure or loosening. A&P Assessment and plan (1) Closed intertrochanteric fracture of right hip: Qualifiers: Encounter type: initial encounter Fracture alignment: nondisplaced Qualified Code(s): S72.144A - Nondisplaced intertrochanteric fracture of right femur, initial encounter for closed fracture Plan Weight-bear as tolerate right lower extremity Change dressings as needed Labs reviewed X-rays reviewed Hospitalist is primary DVT prophylaxis PT/OT Pain control Ice as needed Planning for discharge to rehab facility upon discharge. Follow-up in the orthopedic office in 2 weeks Will be seen by my partner tomorrow and plan for likely orthopedic team to sign off tomorrow as well as patient's progressing well. Appropriate discharge instructions are being in patient's chart. Plan follow-up in 2 weeks Attestations 2 Medical Necessity Statement*: Ongoing care status post right hip fracture surgical fixation Coding Level of Care Code Acute Code for g Fwd Diagnoses Closed intertrochanteric fracture of right hip S72.144A Encounter type: initial encounter Fracture alignment: nondisplaced Time Spent (min) 20
[2023-11-14] MEDS: oxyCODONE 5 mg IR Tab/Cap PO ×2 (13:26→20:47)
--- NOTE | 2023-11-14 14:25 | PC.SOCIAL ---
Pg 2 IMM Explained to pt & her family Pg 2 IMM. No questions voiced. Provided pt a copy. Initialed, dated, & timed a copy & placed in chart.
[2023-11-14] MEDS: ondansetron 2 mg/ML SDV 2 mL 4 MG IVP (15:16)
[2023-11-14] MEDS: TRAMadol 50 mg Tablet PO ×2 (16:34→22:52)
[2023-11-14 17:13] LABS: Glucose Point of Care 219 mg/dL (70-110)
[2023-11-14 20:47] LABS: Glucose Point of Care 173 mg/dL (70-110)
[2023-11-14] MEDS: sodium chloride 0.9% 250 ML IV (20:48)
[2023-11-14] MEDS: metoprolol tartrate 25 mg Tablet PO (20:48)
[2023-11-15] VITALS (12 sets, daily range): BP systolic 108–126; BP diastolic 64–73; PULSE 66–86; RESP 14–18; TEMP 36.3–36.9; O2SAT 90–94
[2023-11-15] MEDS: enoxaparin 30 mg/0.3 mL Syringe SUBCUT (02:52)
[2023-11-15] MEDS: oxyCODONE 5 mg IR Tab/Cap PO ×3 (02:52→16:37)
[2023-11-15 05:22] LABS: Basophils % 0.3 %; Eosinophils % 7.3 %; Hematocrit 26.7 % (36-47); Lymphocytes # 1.7 10^3/uL (0.8-4.8); Lymphocytes % 12.9 %; Mean Corpuscular HGB Conc 34.1 g/dL (30-55); Mean Corpuscular Hemoglobin 32.7 pg (27-33); Mean Platelet Volume 10.7 fL (7.4-10.4); Monocytes # 1.1 10^3/uL (0.2-0.9); Monocytes % 8.4 %; Neutrophils # 9.33 10^3/uL (1.8-7.7); Neutrophils % 70.6 %; Nucleated Red Blood Cells % 0 %; Platelet Count 160 10^3/cmm (157-399); Red Blood Count 2.78 10^6/uL (3.85-5.65); Red Cell Distribution Width 13.1 % (12.1-15.1); White Blood Count 13.21 10^3/uL (3.29-11.43)
[2023-11-15 05:34] LABS: Anion Gap 17.1 (5-19); Blood Urea Nitrogen 15 mg/dL (8-23); Calcium 8.6 mg/dL (8.5-10.5); Carbon Dioxide 22 mmol/L (22-29); Chloride 90 mmol/L (98-107); Creatinine Clr Calc Pharmacy 61.8503; Glucose 171 mg/dL (65-115); Osmolality Calculated 265 mOsm/kg (285-295); Potassium 4.1 mmol/L (3.5-5.1); Sodium 125 mmol/L (136-145)
[2023-11-15] MEDS: TRAMadol 50 mg Tablet PO ×2 (05:40→20:18)
[2023-11-15 06:26] LABS: Glucose Point of Care 168 mg/dL (70-110)
[2023-11-15] MEDS: ondansetron 2 mg/ML SDV 2 mL 4 MG IVP ×3 (06:59→18:05)
[2023-11-15] MEDS: ipratropium-albuterol 3 mL Neb INHALATION ×2 (07:23→20:28)
--- NOTE | 2023-11-15 08:13 | P.PN_ITS ---
Subjective 2 Subjective: Awaiting placement Randhawa cath removed Pleasant and cooperative Will need aggressive bowel regimen Hemodynamically stable Pain on ambulation Doing well with PT Vitals/I&O/Wt Last Vital Signs Temp 98.2 F 11/14/23 15:34 Pulse 77 11/14/23 15:34 Resp 18 11/14/23 15:16 BP 95/61 11/14/23 15:34 Pulse Ox 92 11/14/23 15:34 O2 Del Method Room Air 11/14/23 15:34 11/14/23 11/14/23 11/14/23 06:59 14:59 22:59 Intake Total 878.75 / 4745.417 1300 / 1300 240 / 1540 Output Total 200 / 1125 Balance 678.75 / 3620.417 1300 / 1300 240 / 1540 Weight last 48 hrs Weight 102.058 kg Weight 93.984 kg Physical Exam 2 Narrative: Euvolemic Hemodynamic stable GCS 15 Nonfocal neuroexam IV fluids discontinued Pleasant Tolerating diet Abdomen soft Currently on room air Urinary Catheter Management: Randhawa: Cath Placed During This Visit: yes Reason for Continuing Indwelling Catheter: Other Urinary Catheter Date of Insertion: 11/12/23 Urinary Catheter Time of Insertion: 16:16 Data 11/15/23 04:30 11/15/23 04:30 Micro: Microbiology 11/12/23 17:24 Urine Culture - Preliminary Urine,Clean Catch Gram Negative Rods A&P Assessment and plan (1) Nausea: (2) Closed intertrochanteric fracture of right hip: Qualifiers: Encounter type: initial encounter Fracture alignment: nondisplaced Qualified Code(s): S72.144A - Nondisplaced intertrochanteric fracture of right femur, initial encounter for closed fracture (3) Dehydration: Plan Poor p.o. intake related hypotension Avoid antihypertensive regimen Tolerating diet IV fluids on hold Randhawa catheter no Continue PT Awaiting placement Full code Transfer on Friday to [place] Had 1 small bowel movement today Attestations 2 Medical Necessity Statement*: Discharge on Friday Diagnoses Nausea R11.0 Closed intertrochanteric fracture of right hip S72.144A Encounter type: initial encounter Fracture alignment: nondisplaced Dehydration E86.0
[2023-11-15] MEDS: iron polysaccharide complex 150 mg Capsule PO ×2 (08:38→18:05)
[2023-11-15] MEDS: calcium carb-vit d 600mg/400unit 1 Tablet 1 EACH PO ×2 (08:38→18:05)
[2023-11-15] MEDS: sennosides-docusate Tablet 1 TAB PO (08:38)
[2023-11-15] MEDS: multivitamin therapeutic Tablet 1 TAB PO (08:38)
[2023-11-15] MEDS: docusate sodium 100 mg Capsule PO ×2 (08:38→18:05)
[2023-11-15] MEDS: insulin lispro 100 unit/1 mL SUBCUT ×3 (08:39→18:16)
[2023-11-15] MEDS: chlorhexidine gluconate 0.12% Btl 473 mL 30 ML MUCOUS MEM ×3 (08:39→18:06)
[2023-11-15] MEDS: mupirocin oint 22 gm 1 APPLIC NASAL ×2 (08:40→18:06)
[2023-11-15 10:16] LABS: Sodium 121 mmol/L (136-145)
[2023-11-15 11:29] LABS: Glucose Point of Care 194 mg/dL (70-110)
[2023-11-15] MEDS: ketorolac 30 mg/mL INJ 15 MG IVP (11:47)
--- NOTE | 2023-11-15 15:06 | P.PN_ITS ---
Subjective 2 Subjective: Patient is seen in her room. She has been complaining of nausea which has not allowed her to participate aggressively with physical therapy. She has been stable and is on the medical service. She will continue to work with physical therapy. The patient informs me that family is interested in her going to intermediate at time of discharge. Vitals/I&O/Wt Last Vital Signs Temp 98.3 F 11/15/23 11:31 Pulse 69 11/15/23 11:31 Resp 16 11/15/23 11:31 BP 108/68 11/15/23 11:31 Pulse Ox 91 11/15/23 11:31 O2 Del Method Room Air 11/15/23 11:31 11/15/23 11/15/23 11/15/23 06:59 14:59 22:59 Intake Total 360 / 360 Output Total 400 / 450 Balance -400 / 1340 360 / 360 Weight last 48 hrs Weight 225 lb 12.8 oz Weight 225 lb Physical Exam 2 Narrative: Awake and alert. Working with physical therapy when able secondary to nausea. She responds appropriately and is neurologically intact. No evidence of DVT. Urinary Catheter Management: Randhawa: Cath Placed During This Visit: yes Reason for Continuing Indwelling Catheter: Acute Urinary Retention or Obstruction Urinary Catheter Date of Insertion: 11/15/23 Urinary Catheter Time of Insertion: 03:36 Data 11/15/23 04:30 11/15/23 09:40 Micro: Microbiology 11/12/23 17:24 Urine Culture - Final Urine,Clean Catch Escherichia coli A&P Assessment and plan (1) Closed intertrochanteric fracture of right hip: Today, patient is complaining of nausea which is precluding her from participating with physical therapy aggressively. Qualifiers: Encounter type: initial encounter Fracture alignment: nondisplaced Qualified Code(s): S72.144A - Nondisplaced intertrochanteric fracture of right femur, initial encounter for closed fracture Plan Weight-bear as tolerate right lower extremity Change dressings as needed Hospitalist is primary DVT prophylaxis PT/OT Pain control Ice as needed Planning for discharge to rehab facility upon discharge. Follow-up in the orthopedic office in 2 weeks Will be seen by my partner tomorrow and plan for likely orthopedic team to sign off tomorrow as well as patient's progressing well. Appropriate discharge instructions are being in patient's chart. Plan follow-up in 2 weeks Attestations 2 Medical Necessity Statement*: Ongoing care per medical service Coding Level of Care Code Acute Code for Chg Fwd Diagnoses Closed intertrochanteric fracture of right hip S72.144A Encounter type: initial encounter Fracture alignment: nondisplaced
[2023-11-15 17:24] LABS: Glucose Point of Care 253 mg/dL (70-110)
[2023-11-15] MEDS: ALPRAZolam 0.5 mg Tablet 0.25 MG PO (20:18)
[2023-11-15 20:36] LABS: Glucose Point of Care 199 mg/dL (70-110)
[2023-11-16] VITALS (10 sets, daily range): BP systolic 103–119; BP diastolic 66–75; PULSE 65–77; RESP 16–18; TEMP 36.4–37.4; O2SAT 92–95
[2023-11-16] MEDS: ketorolac 30 mg/mL INJ 15 MG IVP ×3 (00:55→19:42)
[2023-11-16 01:31] LABS: Blood Urea Nitrogen 20 mg/dL (8-23); Carbon Dioxide 22 mmol/L (22-29); Chloride 91 mmol/L (98-107); Creatinine Clr Calc Pharmacy 55.0885; Glucose 175 mg/dL (65-115); Osmolality Calculated 263 mOsm/kg (285-295); Sodium 123 mmol/L (136-145)
[2023-11-16 01:38] LABS: Anion Gap 14.5 (5-19); Potassium 4.5 mmol/L (3.5-5.1)
[2023-11-16] MEDS: enoxaparin 30 mg/0.3 mL Syringe SUBCUT (03:23)
[2023-11-16] MEDS: oxyCODONE 5 mg IR Tab/Cap PO ×2 (03:27→14:22)
[2023-11-16] MEDS: ipratropium-albuterol 3 mL Neb INHALATION (04:32)
[2023-11-16 05:35] LABS: Basophils % 0.2 %; Eosinophils % 7.7 %; Hematocrit 24.8 % (36-47); Lymphocytes # 1.7 10^3/uL (0.8-4.8); Lymphocytes % 13.6 %; Mean Corpuscular HGB Conc 35.1 g/dL (30-55); Mean Corpuscular Hemoglobin 33.1 pg (27-33); Mean Corpuscular Volume 94.3 fl (85-98); Monocytes # 1.2 10^3/uL (0.2-0.9); Monocytes % 9.2 %; Neutrophils # 8.66 10^3/uL (1.8-7.7); Neutrophils % 68.9 %; Nucleated Red Blood Cells % 0 %; Platelet Count 150 10^3/cmm (157-399); Red Blood Count 2.63 10^6/uL (3.85-5.65); White Blood Count 12.57 10^3/uL (3.29-11.43)
[2023-11-16 05:52] LABS: Anion Gap 16.6 (5-19); Blood Urea Nitrogen 22 mg/dL (8-23); Calcium 8.5 mg/dL (8.5-10.5); Carbon Dioxide 21 mmol/L (22-29); Chloride 91 mmol/L (98-107); Glucose 187 mg/dL (65-115); Osmolality Calculated 266 mOsm/kg (285-295); Potassium 4.6 mmol/L (3.5-5.1); Sodium 124 mmol/L (136-145)
[2023-11-16 06:49] LABS: Glucose Point of Care 191 mg/dL (70-110)
[2023-11-16] MEDS: docusate sodium 100 mg Capsule PO ×2 (08:40→16:53)
[2023-11-16] MEDS: calcium carb-vit d 600mg/400unit 1 Tablet 1 EACH PO ×2 (08:40→16:54)
[2023-11-16] MEDS: iron polysaccharide complex 150 mg Capsule PO ×2 (08:40→16:53)
[2023-11-16] MEDS: multivitamin therapeutic Tablet 1 TAB PO (08:41)
[2023-11-16] MEDS: insulin lispro 100 unit/1 mL SUBCUT ×4 (08:41→23:33)
[2023-11-16] MEDS: sennosides-docusate Tablet 1 TAB PO (08:41)
[2023-11-16] MEDS: chlorhexidine gluconate 0.12% Btl 473 mL 30 ML MUCOUS MEM ×4 (08:41→20:50)
[2023-11-16] MEDS: mupirocin oint 22 gm 1 APPLIC NASAL ×2 (08:41→17:07)
[2023-11-16 11:31] LABS: Glucose Point of Care 172 mg/dL (70-110)
[2023-11-16] MEDS: sodium chloride 1 gm Tablet PO ×2 (11:49→16:54)
[2023-11-16] MEDS: sodium chloride 0.9% 1,000 ML 75 ML IV (11:50)
--- NOTE | 2023-11-16 13:36 | P.PN_ITS ---
Subjective 2 Subjective: Patient is stating that every time she eats she gets epigastric discomfort I will put her on Protonix 40 mg twice daily along sucralfate She will need an EGD down the road Chest pain Poor p.o. intake Sodium dropped Adding salt tablets IV fluids Vitals/I&O/Wt Last Vital Signs Temp 98.0 F 11/16/23 11:44 Pulse 76 11/16/23 11:44 Resp 17 11/16/23 11:44 BP 119/75 11/16/23 11:44 Pulse Ox 94 11/16/23 11:44 O2 Del Method Room Air 11/16/23 11:44 O2 Flow Rate 94 11/15/23 19:57 11/15/23 11/16/23 11/16/23 22:59 06:59 14:59 Intake Total 240 / 240 Output Total 550 / 550 Balance -550 / -190 240 / 240 Weight last 48 hrs Weight 103.011 kg Weight 102.421 kg Physical Exam 2 Narrative: Clinically dehydrated No acute sign negative Abdomen soft Sitting in her chair No active chest pain Randhawa catheter in place s1 s2 Urinary Catheter Management: Randhawa: Cath Placed During This Visit: yes Reason for Continuing Indwelling Catheter: Acute Urinary Retention or Obstruction Urinary Catheter Date of Insertion: 11/15/23 Urinary Catheter Time of Insertion: 03:36 Data 11/16/23 04:58 11/16/23 04:58 Micro: Microbiology 11/12/23 17:24 Urine Culture - Final Urine,Clean Catch Escherichia coli A&P Assessment and plan (1) Nausea: (2) Abdominal pain: (3) Dehydration: (4) Closed intertrochanteric fracture of right hip: Qualifiers: Encounter type: initial encounter Fracture alignment: nondisplaced Qualified Code(s): S72.144A - Nondisplaced intertrochanteric fracture of right femur, initial encounter for closed fracture (5) Epigastric discomfort: (6) Hyponatremia: Plan Hypovolemic hyponatremia Added salt tablets along IV fluids Voiding trial later in the day Status post intervention for hip fracture Pain well-managed Epigastric discomfort my concern related to gastric ulcer, Protonix and sucralfate Plan to discharge her by tomorrow Hemodynamically stable DVT prophylaxis on board 1 bowel movement yesterday Attestations 2 Medical Necessity Statement*: Continue medical management Diagnoses Nausea R11.0 Abdominal pain R10.9 Dehydration E86.0 Closed intertrochanteric fracture of right hip S72.144A Encounter type: initial encounter Fracture alignment: nondisplaced Epigastric discomfort R10.13 Hyponatremia E87.1
--- NOTE | 2023-11-16 14:05 | P.PN_ITS ---
Subjective 2 Subjective: Patient is seen in her room with her family. They are in agreement that longterm would be the direction they would like to go. This has been relayed to case management by nursing. Medications: Reviewed: Yes Vitals/I&O/Wt Last Vital Signs Temp 98.0 F 11/16/23 11:44 Pulse 76 11/16/23 11:44 Resp 17 11/16/23 11:44 BP 119/75 11/16/23 11:44 Pulse Ox 94 11/16/23 11:44 O2 Del Method Room Air 11/16/23 11:44 O2 Flow Rate 94 11/15/23 19:57 11/15/23 11/16/23 11/16/23 22:59 06:59 14:59 Intake Total 240 / 240 Output Total 550 / 550 Balance -550 / -190 240 / 240 Weight last 48 hrs Weight 227 lb 1.6 oz Weight 225 lb 12.8 oz Physical Exam 2 Narrative: Patient is seen in her room with her family. She remains neurologically intact with no evidence of DVT. Calves are soft and nontender. Dressing is dry and intact. There is minimal to no swelling. Urinary Catheter Management: Randhawa: Cath Placed During This Visit: yes Reason for Continuing Indwelling Catheter: Acute Urinary Retention or Obstruction Urinary Catheter Date of Insertion: 11/15/23 Urinary Catheter Time of Insertion: 03:36 Data 11/16/23 04:58 11/16/23 04:58 Micro: Microbiology 11/12/23 17:24 Urine Culture - Final Urine,Clean Catch Escherichia coli A&P Assessment and plan (1) Closed intertrochanteric fracture of right hip: Patient is seen today. Patient and family are in agreement upon potential discharge to longterm. Nausea has improved, but she still has difficulty eating. She will continue to work with therapy. We will sign off for now unless you need us, and please contact me if you do. Qualifiers: Encounter type: initial encounter Fracture alignment: nondisplaced Qualified Code(s): S72.144A - Nondisplaced intertrochanteric fracture of right femur, initial encounter for closed fracture Plan Weight-bear as tolerate right lower extremity Change dressings as needed Hospitalist is primary DVT prophylaxis PT/OT Pain control Ice as needed Planning for discharge to rehab facility upon discharge. Follow-up in the orthopedic office in 2 weeks Will be seen by my partner tomorrow and plan for likely orthopedic team to sign off tomorrow as well as patient's progressing well. Appropriate discharge instructions are being in patient's chart. Plan follow-up in 2 weeks Attestations 2 Medical Necessity Statement*: Per hospitalist team Coding Level of Care Code Acute Code for [facility] Fwd Diagnoses Closed intertrochanteric fracture of right hip S72.144A Encounter type: initial encounter Fracture alignment: nondisplaced
[2023-11-16] MEDS: lidocaine 2% viscous 15 ML, aluminum-mag hydrox-simethicon 30 ML, sucralfate oral liq 1 GM PO (14:22)
[2023-11-16] MEDS: pantoprazole DR 40 mg Tablet PO (16:53)
[2023-11-16 16:55] LABS: Glucose Point of Care 146 mg/dL (70-110)
[2023-11-16] MEDS: sucralfate 1 gm Tablet PO ×2 (17:05→20:49)
[2023-11-16] MEDS: ondansetron 2 mg/ML SDV 2 mL 4 MG IVP (17:07)
--- NOTE | 2023-11-16 18:04 | PC.NURSE ---
Pt requests voiding trial later in evening/night. Orders placed at this time.
[2023-11-16] MEDS: ALPRAZolam 0.5 mg Tablet 0.25 MG PO (20:49)
[2023-11-16 20:51] LABS: Glucose Point of Care 207 mg/dL (70-110)
--- NOTE | 2023-11-16 23:35 | PC.NURSE ---
Patient's blood glucose was 207 at 2034 by POC. Physician was notified by this nurse. Physician ordered 3 units of Lispro ONCE and was administered by this nurse. Plan of care ongoing.
[2023-11-16 23:37] LABS: Glucose Point of Care 176 mg/dL (70-110)
[2023-11-17] VITALS (10 sets, daily range): BP systolic 108–119; BP diastolic 66–77; PULSE 68–77; RESP 14–19; TEMP 36.3–36.8; O2SAT 90–95
[2023-11-17] MEDS: enoxaparin 30 mg/0.3 mL Syringe SUBCUT (02:26)
[2023-11-17] MEDS: oxyCODONE 5 mg IR Tab/Cap PO ×4 (02:26→22:43)
[2023-11-17] MEDS: ketorolac 30 mg/mL INJ 15 MG IVP (06:26)
[2023-11-17] MEDS: sucralfate 1 gm Tablet PO ×4 (06:26→20:50)
[2023-11-17 06:39] LABS: Glucose Point of Care 184 mg/dL (70-110)
[2023-11-17 07:04] LABS: Basophils % 0.3 %; Eosinophils # 2.2 10^3/uL (0.0-0.8); Eosinophils % 21.4 %; Hematocrit 24.6 % (36-47); Lymphocytes # 1.5 10^3/uL (0.8-4.8); Lymphocytes % 14.9 %; Mean Corpuscular HGB Conc 35.4 g/dL (30-55); Mean Corpuscular Hemoglobin 33.2 pg (27-33); Mean Corpuscular Volume 93.9 fl (85-98); Mean Platelet Volume 10.3 fL (7.4-10.4); Monocytes # 0.9 10^3/uL (0.2-0.9); Monocytes % 9.1 %; Neutrophils # 5.43 10^3/uL (1.8-7.7); Neutrophils % 53.9 %; Nucleated Red Blood Cells % 0 %; Platelet Count 185 10^3/cmm (157-399); Red Blood Count 2.62 10^6/uL (3.85-5.65); Red Cell Distribution Width 12.9 % (12.1-15.1); White Blood Count 10.08 10^3/uL (3.29-11.43)
[2023-11-17 07:20] LABS: Anion Gap 14.5 (5-19); Blood Urea Nitrogen 17 mg/dL (8-23); Calcium 8.5 mg/dL (8.5-10.5); Carbon Dioxide 20 mmol/L (22-29); Chloride 88 mmol/L (98-107); Creatinine Clr Calc Pharmacy 62.1765; Glucose 178 mg/dL (65-115); Osmolality Calculated 252 mOsm/kg (285-295); Potassium 4.5 mmol/L (3.5-5.1)
[2023-11-17 07:28] LABS: Sodium 118 mmol/L (136-145)
[2023-11-17] MEDS: sodium chloride 1 gm Tablet PO ×2 (08:40→20:50)
[2023-11-17] MEDS: calcium carb-vit d 600mg/400unit 1 Tablet 1 EACH PO ×2 (08:40→18:29)
[2023-11-17] MEDS: iron polysaccharide complex 150 mg Capsule PO ×2 (08:40→18:29)
[2023-11-17] MEDS: sennosides-docusate Tablet 1 TAB PO (08:40)
[2023-11-17] MEDS: docusate sodium 100 mg Capsule PO ×2 (08:40→18:29)
[2023-11-17] MEDS: multivitamin therapeutic Tablet 1 TAB PO (08:40)
[2023-11-17] MEDS: insulin lispro 100 unit/1 mL SUBCUT ×2 (08:41→18:29)
[2023-11-17] MEDS: TRAMadol 50 mg Tablet PO (08:41)
[2023-11-17] MEDS: pantoprazole DR 40 mg Tablet PO ×2 (08:41→18:29)
--- NOTE | 2023-11-17 11:38 | P.PN_ITS ---
Subjective 2 Subjective: Plan to discharge blood her sodium dropped 218 No significant symptoms Patient endorsed feeling better Able to void without any problem Vitals/I&O/Wt Last Vital Signs Temp 97.6 F 11/17/23 07:34 Pulse 72 11/17/23 07:34 Resp 18 11/17/23 07:34 BP 108/67 11/17/23 07:34 Pulse Ox 91 11/17/23 07:34 O2 Del Method Room Air 11/17/23 08:56 O2 Flow Rate 94 11/15/23 19:57 11/16/23 11/17/23 11/17/23 22:59 06:59 14:59 Intake Total 120 / 360 1120 / 1480 360 / 360 Output Total 1200 / 1200 350 / 1550 Balance -1080 / -840 770 / -70 360 / 360 Weight last 48 hrs Weight 103.011 kg Weight 103.011 kg Physical Exam 2 Narrative: Family at bedside DC 50 Euvolemic Abdomen soft Better p.o. intake Nonfocal neuroexam Currently on room air S1, S2 Urinary Catheter Management: Randhawa: Cath Placed During This Visit: yes, but has since been removed by the nurse Reason for Continuing Indwelling Catheter: Other Urinary Catheter Date of Insertion: 11/15/23 Urinary Catheter Time of Insertion: 03:36 Date Urinary Catheter Removed: 11/16/23 Time Urinary Catheter Discontinued: 21:00 Data 11/17/23 06:42 11/17/23 06:42 A&P Assessment and plan (1) Hyponatremia: (2) Nausea: (3) Abdominal pain: (4) Epigastric discomfort: (5) Dehydration: (6) Closed intertrochanteric fracture of right hip: Qualifiers: Encounter type: initial encounter Fracture alignment: nondisplaced Qualified Code(s): S72.144A - Nondisplaced intertrochanteric fracture of right femur, initial encounter for closed fracture Plan Hypovolemic hyponatremia Sodium dropped to critical low level discharge planning on hold Added salt tablets Will consult nephro She was getting IV fluids at maintenance rate 75 mill per hour Voiding trial passed able to void without any difficulty Pain well-managed Bowel movement yesterday Full code Consistent carb diet DVT prophylaxis on board Repeat sodium Attestations 2 Medical Necessity Statement*: Discharged once sodium improved Coding Level of Care Code Acute Code for [facility] Fwd Diagnoses Hyponatremia E87.1 Nausea R11.0 Abdominal pain R10.9 Epigastric discomfort R10.13 Dehydration E86.0 Closed intertrochanteric fracture of right hip S72.144A Encounter type: initial encounter Fracture alignment: nondisplaced
[2023-11-17 11:40] LABS: Glucose Point of Care 127 mg/dL (70-110)
--- NOTE | 2023-11-17 12:02 | PC.SOCIAL ---
IMM Update pg 2 of IMM updated and reviewed w/ patient. Copy provided and copy dated, initialed and placed in chart.
[2023-11-17 12:34] LABS: Sodium 121 mmol/L (136-145)
[2023-11-17 13:40] LABS: Uric Acid 4.2 mg/dL (2.4-5.7)
[2023-11-17 14:10] LABS: Potassium, Radom Urine 7 mmol/L
[2023-11-17 14:13] LABS: Urine Random Chloride 11 mmol/L
[2023-11-17 14:19] LABS: Urine Random Sodium < 10 mmol/L
[2023-11-17] MEDS: sodium chloride 0.9% 1,000 ML 75 ML IV (14:56)
[2023-11-17 16:57] LABS: Glucose Point of Care 177 mg/dL (70-110)
--- NOTE | 2023-11-17 18:09 | P.CONIM_ITS ---
Providers/Reason For Consult 2 Consulting Physician/Specialty*: Pamela Patel D.O., telenephrtology Reason for Consult*: Hyponatremia Requesting Physician: Billy Saez MD Attending Physician: Billy Saez MD Primary Care Provider: Ryann Tovar MD History of Present Illness History of Present Illness Geronimo Fair is a 83 year old female fell, hip fracture, ORIF. Admission serum Na 135 mEq/L I/O positive Medications/Allergies Home Medications Medication Instructions Recorded Confirmed Last Taken Type losartan 100 mg tablet 100 mg PO QAM 08/14/19 11/12/23 11/12/23 History propranolol 80 mg capsule,extended 80 mg PO BEDTIME 08/14/19 11/12/23 11/11/23 History release 24 hr alprazolam 0.25 mg tablet 0.5 mg PO BEDTIME 03/14/23 11/12/23 11/11/23 History pantoprazole 40 mg tablet,delayed 40 mg PO QPM 03/14/23 11/12/23 11/11/23 History release acetaminophen 500 mg tablet 1,000 mg PO Q6H PRN Pain 10/07/23 11/12/23 10/07/23 06:30 History 1000 mg aspirin 81 mg tablet,delayed 81 mg PO QAM 10/07/23 11/12/23 11/12/23 History release diclofenac sodium 1 % topical gel 2 g topical QID PRN Pain 10/07/23 11/12/23 10/07/23 History (Aspercreme Arthritis Pain) rosuvastatin 5 mg tablet 5 mg PO BEDTIME 10/07/23 11/12/23 11/11/23 History semaglutide 2 mg/dose (8 mg/3 mL) 2 mg SUBCUT Q7D 10/07/23 11/12/23 11/07/23 History subcutaneous pen injector (Ozempic) vit C 250 mg-vit E 90 mg-zinc 40 1 tab PO BID 10/07/23 11/12/23 11/12/23 History mg-copper 1 me-ahbyne-xlnzsz capsule (PreserVision AREDS-2) amlodipine 5 mg tablet 5 mg PO QPM 11/03/23 11/12/23 11/11/23 History insulin glargine 100 unit/mL (3 48 unit SUBCUT QAM 11/03/23 11/12/23 11/12/23 History mL) subcutaneous pen (Lantus Solostar U-100 Insulin) levothyroxine 137 mcg tablet 137 mcg PO QAM 11/12/23 11/12/23 11/12/23 History oxycodone 5 mg tablet 5 mg PO Q6H PRN pain postop 7 days 11/14/23 Unknown Rx #28 tabs Allergies Allergy/AdvReac Type Severity Reaction Status Date / Time No Known Allergies Allergy Verified 11/03/23 12:29 Current Medications Generic Name Dose Route Start Last Admin Trade Name Freq PRN Reason Stop Dose Admin Acetaminophen 500 mg 11/12/23 17:18 11/14/23 02:45 Acetaminophen 500 Mg Tablet PO 500 mg Q4H PRN Administration fever Albuterol/Ipratropium 3 ml 11/12/23 17:18 11/16/23 04:32 Ipratropium-Albuterol 3 Ml Neb INHALATION 3 ml Q6H PRN Administration SHORTNESS OF BREATH Alprazolam 0.25 mg 11/15/23 21:00 11/16/23 20:49 Alprazolam 0.5 Mg Tablet PO 0.25 mg BEDTIME SHON Administration Amlodipine Besylate 10 mg 11/13/23 09:00 11/14/23 08:56 Amlodipine 10 Mg Tablet PO 10 mg DAILY SHON Administration Calcium Carbonate 1 each 11/13/23 18:00 11/17/23 08:40 Calcium Carb-Vit D 600mg/400unit 1 Tablet PO 1 each BID SHON Administration Chlorhexidine Gluconate 30 ml 11/13/23 17:00 11/17/23 12:41 Chlorhexidine Gluconate 0.12% Btl 473 Ml MUCOUS MEM Not Given QID SHON Docusate Sodium 100 mg 11/13/23 18:00 11/17/23 08:40 Docusate Sodium 100 Mg Capsule PO 100 mg BID SHON Administration Enoxaparin Sodium 30 mg 11/14/23 02:30 11/17/23 02:26 Enoxaparin 30 Mg/0.3 Ml Syringe SUBCUT 30 mg Q24H SHON Administration Dextrose 500 mls @ 0 mls/hr 11/12/23 19:01 11/13/23 17:15 D5w IV 0 mls/hr ONCE PRN Infusion Adult Acute Hypoglycemia Prot Protocol Per Protocol Sodium Chloride 1,000 mls @ 75 mls/hr 11/17/23 13:00 11/17/23 14:56 Sodium Chloride 0.9% IV 75 mls/hr .[id number] SHON Administration Insulin Human Lispro 0 unit 11/13/23 08:00 11/17/23 11:58 Insulin Lispro 100 Unit/1 Ml SUBCUT Not Given TIDWM [facility] Protocol Ketorolac Tromethamine 15 mg 11/13/23 16:20 11/17/23 06:26 Ketorolac 30 Mg/Ml Inj IVP 15 mg Q6H PRN Administration Moderate To Severe Pain, 1st Metoprolol Tartrate 25 mg 11/12/23 21:00 11/14/23 20:48 Metoprolol Tartrate 25 Mg Tablet PO 25 mg BID@0900,2100 [facility] Administration Multivitamins Therapeutic 1 tab 11/14/23 09:00 11/17/23 08:40 Multivitamin Therapeutic Tablet PO 1 tab DAILY [facility] Administration Mupirocin 1 applic 11/13/23 18:00 11/17/23 08:41 Mupirocin Oint 22 Gm NASAL 11/18/23 17:59 Not Given BID [facility] Protocol Ondansetron HCl 4 mg 11/12/23 17:18 11/16/23 17:07 Ondansetron 2 Mg/Ml Sdv 2 Ml IVP 4 mg Q6H PRN Administration NAUSEA AND VOMITING Oxycodone HCl 5 mg 11/13/23 16:20 11/17/23 16:10 Oxycodone 5 Mg Ir Tab/Cap PO 5 mg Q6H PRN Administration Mod to severe pain , 2nd line Pantoprazole Sodium 40 mg 11/16/23 18:00 11/17/23 08:[address] 40 Mg Tablet PO 40 mg BID [facility] Administration Polysaccharide Iron Complex 150 mg 11/13/23 18:00 11/17/23 08:40 Iron Polysaccharide Complex 150 Mg Capsule PO 150 mg BIDWM [facility] Administration Senna/Docusate Sodium 1 tab 11/13/23 09:00 11/17/23 08:40 Sennosides-Docusate Tablet PO 1 tab DAILY [facility] Administration Sodium Chloride 1 gm 11/16/23 10:00 11/17/23 08:40 Sodium Chloride 1 Gm Tablet PO 1 gm BID SHON Administration Sucralfate 1 gm 11/16/23 17:00 11/17/23 12:01 Sucralfate 1 Gm Tablet PO 1 gm AC&BEDTIME SHON Administration Tramadol HCl 50 mg 11/13/23 16:20 11/17/23 08:41 Tramadol 50 Mg Tablet PO 50 mg Q4H PRN Administration MILD PAIN PFSH Acute 2 PFSH: Medical History Nausea Abdominal pain Hypertensive urgency Surgical History No pertinent past surgical history Family History Son Hypertension Daughter Hypertension Social History Smoking and tobacco/nicotine status: never used tobacco/nicotine Alcohol intake: never Substance/Drug Use: never Vitals/I&O/Wt Last Vital Signs Temp 97.3 F L 11/17/23 17:31 Pulse 76 11/17/23 17:31 Resp 19 H 11/17/23 17:31 BP 108/66 11/17/23 17:31 Pulse Ox 94 11/17/23 17:31 O2 Del Method Room Air 11/17/23 17:31 O2 Flow Rate 94 11/15/23 19:57 11/17/23 11/17/23 11/17/23 06:59 14:59 22:59 Intake Total 1120 / 1480 720 / 720 Output Total 350 / 1550 Balance 770 / -70 720 / 720 Weight last 48 hrs Weight 103.011 kg Weight 103.011 kg Physical Exam 2 Const: COMMON NORMALS: no acute distress and alert Extremity: NARRATIVE EXTREMITY EXAM: trace edema Neuro: SENSORIUM/ORIENTATION: Yes alert Urinary Catheter Management: Randhawa: Cath Placed During This Visit: yes, but has since been removed by the nurse Reason for Continuing Indwelling Catheter: Other Urinary Catheter Date of Insertion: 11/15/23 Urinary Catheter Time of Insertion: 03:36 Date Urinary Catheter Removed: 11/16/23 Time Urinary Catheter Discontinued: 21:00 Data 11/17/23 06:42 11/17/23 11:50 Other Labs: urine Na < 10 Other data: seen via telemedicine with assistance of RN at bedside A&P Assessment and plan (1) Hyponatremia: Plan 1. 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 asymptomatic. 2. Hypotension, agree with holding antihyperensives Recommend: discontinue IVF, add oral furosemide, increase NaCl 1 gm TID. Repeat serum sodium in AM Consult Attestations 2 Medical Necessity Statement: see above Time Spent in Patient Care: 16 - 35 minutes Coding Level of Care Code Acute Code for [facility] Diagnoses Hyponatremia E87.1
[2023-11-17 20:19] LABS: Sodium 125 mmol/L (136-145)
[2023-11-17] MEDS: ALPRAZolam 0.5 mg Tablet 0.25 MG PO (20:50)
[2023-11-17 20:55] LABS: Glucose Point of Care 149 mg/dL (70-110)
[2023-11-17 23:19] LABS: Sodium 123 mmol/L (136-145)
[2023-11-18] VITALS (9 sets, daily range): BP systolic 98–115; BP diastolic 62–72; PULSE 72–80; RESP 16–19; TEMP 36.5–37; O2SAT 90–99
[2023-11-18] MEDS: enoxaparin 30 mg/0.3 mL Syringe SUBCUT (02:11)
[2023-11-18 06:11] LABS: Basophils % 0.3 %; Eosinophils # 2.1 10^3/uL (0.0-0.8); Eosinophils % 21.3 %; Hematocrit 24.1 % (36-47); Lymphocytes # 1.4 10^3/uL (0.8-4.8); Lymphocytes % 14.7 %; Mean Corpuscular HGB Conc 33.6 g/dL (30-55); Mean Corpuscular Hemoglobin 33.1 pg (27-33); Mean Corpuscular Volume 98.4 fl (85-98); Mean Platelet Volume 10.2 fL (7.4-10.4); Monocytes # 0.9 10^3/uL (0.2-0.9); Monocytes % 8.9 %; Neutrophils # 5.31 10^3/uL (1.8-7.7); Neutrophils % 54.4 %; Nucleated Red Blood Cells % 0 %; Platelet Count 182 10^3/cmm (157-399); Red Blood Count 2.45 10^6/uL (3.85-5.65); Red Cell Distribution Width 13.5 % (12.1-15.1); White Blood Count 9.76 10^3/uL (3.29-11.43)
[2023-11-18] MEDS: sucralfate 1 gm Tablet PO ×4 (06:24→20:56)
[2023-11-18] MEDS: oxyCODONE 5 mg IR Tab/Cap PO ×3 (06:24→21:07)
[2023-11-18 06:29] LABS: Anion Gap 14.6 (5-19); Blood Urea Nitrogen 13 mg/dL (8-23); Calcium 8.2 mg/dL (8.5-10.5); Carbon Dioxide 21 mmol/L (22-29); Chloride 95 mmol/L (98-107); Creatinine Clr Calc Pharmacy 55.0212; Glucose 157 mg/dL (65-115); Osmolality Calculated 265 mOsm/kg (285-295); Potassium 4.6 mmol/L (3.5-5.1); Sodium 126 mmol/L (136-145)
[2023-11-18 06:29] LABS: Glucose Point of Care 167 mg/dL (70-110)
[2023-11-18] MEDS: multivitamin therapeutic Tablet 1 TAB PO (08:11)
[2023-11-18] MEDS: sodium chloride 1 gm Tablet PO ×3 (08:11→20:56)
[2023-11-18] MEDS: iron polysaccharide complex 150 mg Capsule PO ×2 (08:11→17:25)
[2023-11-18] MEDS: calcium carb-vit d 600mg/400unit 1 Tablet 1 EACH PO ×2 (08:11→17:25)
[2023-11-18] MEDS: TRAMadol 50 mg Tablet PO ×2 (08:12→17:26)
[2023-11-18] MEDS: docusate sodium 100 mg Capsule PO ×2 (08:12→17:25)
[2023-11-18] MEDS: FUROsemide 20 mg Tablet PO (08:12)
[2023-11-18] MEDS: insulin lispro 100 unit/1 mL SUBCUT ×2 (08:12→12:22)
[2023-11-18] MEDS: pantoprazole DR 40 mg Tablet PO ×2 (08:12→17:25)
[2023-11-18] MEDS: sennosides-docusate Tablet 1 TAB PO (08:12)
--- NOTE | 2023-11-18 08:44 | CTR_ITS ---
PROCEDURE INFORMATION: Exam: CTA Abdominal Aorta and Bilateral Lower Extremities (Run-off) With Contrast Exam date and time: 11/18/2023 9:57 AM Age: 83 years old Clinical indication: Injury or trauma; Fall; Blunt trauma; Upper leg; Right; Injury details: Post op 5 days from orif troch nail femur. PT has bruising from top of hip to knee on the posterior side. Swelling to RT leg from hip to below knee. Bleeding from surgical sites; Prior surgery; Surgery date: 3-7 days post-operative; Surgery type: RT femur; Additional info: Surgical site bleed TECHNIQUE: Imaging protocol: Computed tomographic angiography of the of the abdominal aorta, pelvis and bilateral lower extremities with contrast. 3D rendering (Not supervised by radiologist): MIP and/or 3D reconstructed images were created by the technologist. Radiation optimization: All CT scans at this facility use at least one of these dose optimization techniques: automated exposure control; mA and/or kV adjustment per patient size (includes targeted exams where dose is matched to clinical indication); or iterative reconstruction. Contrast material: OMNI 350; Contrast volume: 120 ml; Contrast route: INTRAVENOUS (IV); COMPARISON: CT angio chest PE protcl [id number] 02/01/2024 23:56 RADIATION DOSE METRICS: Total DLP (mGy-cm): 1092.13 FINDINGS: Aorta: No aortic aneurysm. No aortic dissection. Celiac trunk and mesenteric arteries: No occlusion or significant stenosis. Renal arteries: No occlusion or significant stenosis. Right iliac arteries: No occlusion or significant stenosis. Right femoral/popliteal arteries: No occlusion or significant stenosis. Right infrapopliteal arteries: Normal-variant proximal origin right anterior tibial artery. There are multifocal moderate stenoses throughout all tibial arteries with diseased three-vessel runoff to the right ankle. Left iliac arteries: No occlusion or significant stenosis. Left femoral/popliteal arteries: No occlusion or significant stenosis. Left infrapopliteal arteries: Normal-variant proximal origin of the left anterior tibial artery. There are multifocal moderate stenoses throughout all tibial arteries with diseased three-vessel runoff to the left ankle. Liver: The liver is enlarged measuring about 20 cm in craniocaudal dimension. There is no focal hepatic lesion identified. Gallbladder and bile ducts: There are new, significant strandy inflammatory changes surrounding the gallbladder. Although no calcified gallstones are visualized, consider acute cholecystitis. Pancreas: The pancreas is normal in appearance. No evidence of pancreatic ductal dilatation. Spleen: Small splenic calcifications likely representing old granulomatous disease Adrenal glands: The adrenal glands are normal in appearance. Kidneys and ureters: No evidence of hydronephrosis or nephroureteral calculi. Small focal areas of bilateral renal cortical scarring. Stomach and bowel: The small bowel loops are not thickened and are nondilated. There is colonic diverticulosis but no evidence of diverticulitis. Appendix: The appendix is normal. Urinary bladder: The urinary bladder is normal in appearance. Reproductive: Unremarkable as visualized. Intraperitoneal space: Unremarkable. No free air. No significant fluid collection. Lymph nodes: No lymphadenopathy. Bones/joints: ORIF of the right hip. Rotatory dextroscoliosis of the thoracolumbar spine. Multilevel chronic degenerative disc disease throughout the lumbar spine. No acute osseous lesions are identified. Chronic osteoarthritic changes at both knees. No evidence of a knee effusion on either side. Soft tissues: There are postsurgical changes of the right hip with lateral skin dwight. There is diffuse edema throughout the right lower extremity subcutaneous fat. No gas in the soft tissues distant to the right hip surgical site. No significant hematoma identified. CT/CT angio abd aorta runof 08500 IMPRESSION: 1. 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 No evidence of contrast extravasation to suggest arterial bleeding 3. Edema in the subcutaneous fat throughout the right lower extremity. No evidence of a hematoma 4. New extensive strandy inflammatory changes surrounding the gallbladder. This is a new finding when compared to the recent CTA of the chest. Consider acute cholecystitis 5. Hepatomegaly
[2023-11-18] MEDS: iohexol 350 mg/mL 500 mL Btl (per mL) IV (10:06)
--- NOTE | 2023-11-18 10:34 | P.PN_ITS ---
Subjective 2 Subjective: This morning her sodium is 126 Appreciate nephro recommendations Patient was complaining of her legs getting swollen There is some ecchymosis around the surgical site Requested CTA to rule out active bleeding Hemodynamically she is stable Held DVT prophylaxis at this point Patient is stating that she gets excruciating pain with movement and especially after the angiogram she was in a lot of pain She is voiding without any difficulty No need of Randhawa catheter at this point Vitals/I&O/Wt Last Vital Signs Temp 97.8 F 11/18/23 07:36 Pulse 72 11/18/23 08:50 Resp 16 11/18/23 08:50 BP 106/68 11/18/23 07:36 Pulse Ox 92 11/18/23 08:50 O2 Del Method Room Air 11/18/23 08:50 O2 Flow Rate 94 11/15/23 19:57 11/17/23 11/18/23 11/18/23 22:59 06:59 14:59 Intake Total 502.5 / 1222.5 480 / 1702.5 80 / 80 Output Total 700 / 700 600 / 1300 Balance -197.5 / 522.5 -120 / 402.5 80 / 80 Weight last 48 hrs Weight 102.2 kg Weight 103.011 kg Physical Exam 2 Narrative: Pleasant cooperative Laying in her chair Hemodynamically stable however blood pressure lower as compared to yesterday Currently on room air Euvolemic Complaining of right thigh pain Ecchymosis and petechiae around sutures No active respiratory distress S1, S2 Urinary Catheter Management: Randhawa: Cath Placed During This Visit: yes, but has since been removed by the nurse Reason for Continuing Indwelling Catheter: Other Urinary Catheter Date of Insertion: 11/15/23 Urinary Catheter Time of Insertion: 03:36 Date Urinary Catheter Removed: 11/16/23 Time Urinary Catheter Discontinued: 21:00 Data 11/18/23 05:50 11/18/23 05:50 A&P Assessment and plan (1) Hypertensive urgency: (2) Hyponatremia: (3) Epigastric discomfort: (4) Dehydration: (5) Closed intertrochanteric fracture of right hip: Qualifiers: Encounter type: initial encounter Fracture alignment: nondisplaced Qualified Code(s): S72.144A - Nondisplaced intertrochanteric fracture of right femur, initial encounter for closed fracture (6) Postoperative anemia: Plan Postoperative anemia and hyponatremia Appreciate nephro recommendations currently on fluid restriction Concern for SIADH IV fluids discontinued Continue salt tab Will request CT angiogram to rule out active bleed right eye does look more swollen, concern for underlying hematoma ecchymosis petechiae around the surgical site Hemoglobin 8.1, Holding off on DVT prophylaxis for today Awaiting CT angiogram report Epigastric discomfort: Added Protonix and sulcal Negative stress test which was done preoperative Patient will not be able to get discharged today either I would like to monitor her 1 more day to watch her sodium and hemoglobin Full code Continue PT Attestations 2 Medical Necessity Statement*: Monitor for 1 more day at least Diagnoses Hypertensive urgency I16.0 Hyponatremia E87.1 Epigastric discomfort R10.13 Dehydration E86.0 Closed intertrochanteric fracture of right hip S72.144A Encounter type: initial encounter Fracture alignment: nondisplaced Postoperative anemia D64.9
[2023-11-18 11:14] LABS: Glucose Point of Care 167 mg/dL (70-110)
[2023-11-18 11:27] LABS: Hematocrit 26.3 % (36-47)
--- NOTE | 2023-11-18 12:36 | PC.OT ---
Pt declined OT treatment session due to being tired from tests; will attempt again at later time.
[2023-11-18 14:30] LABS: Osmolality Serum 257 mOsm/kg (278-305)
[2023-11-18 14:34] LABS: Osmolality Urine 212 mOsm/kg (50-1200)
[2023-11-18 16:47] LABS: Glucose Point of Care 132 mg/dL (70-110)
--- NOTE | 2023-11-18 16:55 | P.PN_ITS ---
Subjective 2 Subjective: Had Agram today no complaints Vitals/I&O/Wt Last Vital Signs Temp 98.2 F 11/18/23 16:34 Pulse 78 11/18/23 16:34 Resp 19 H 11/18/23 16:34 BP 112/66 11/18/23 16:34 Pulse Ox 99 11/18/23 16:34 O2 Del Method Room Air 11/18/23 16:34 O2 Flow Rate 94 11/15/23 19:57 11/18/23 11/18/23 11/18/23 06:59 14:59 22:59 Intake Total 480 / 1702.5 320 / 320 Output Total 600 / 1300 400 / 400 Balance -120 / 402.5 -80 / -80 Weight last 48 hrs Weight 102.2 kg Weight 103.011 kg Physical Exam 2 Urinary Catheter Management: Randhawa: Cath Placed During This Visit: yes, but has since been removed by the nurse Reason for Continuing Indwelling Catheter: Other Urinary Catheter Date of Insertion: 11/15/23 Urinary Catheter Time of Insertion: 03:36 Date Urinary Catheter Removed: 11/16/23 Time Urinary Catheter Discontinued: 21:00 Data 11/18/23 11:18 11/18/23 05:50 Other data: seen via telemedicine with asistance of RN at bedside A&P Assessment and plan (1) Hyponatremia: Plan 1. Hyponatremia, improving on NaCl tablets and furosemide. IVF stopped 2. Peripheral artery disease 3. Possible cholecystitis Recommend:continue NaCl 1 gm TID. Repeat serum sodium in AM Attestations 2 Medical Necessity Statement*: per primary service Time Spent in Patient Care: less than 15 minutes Coding Level of Care Code Acute Code for [facility] Fwd Diagnoses Hyponatremia E87.1
[2023-11-18] MEDS: chlorhexidine gluconate 0.12% Btl 473 mL 30 ML MUCOUS MEM (20:56)
[2023-11-18] MEDS: ALPRAZolam 0.5 mg Tablet 0.25 MG PO (20:56)
[2023-11-18 21:22] LABS: Glucose Point of Care 187 mg/dL (70-110)
[2023-11-19 00:23] VITALS: BP 115/71; PULSE 78; RESP 18; TEMP 36.8; O2SAT 94
[2023-11-19] MEDS: enoxaparin 30 mg/0.3 mL Syringe SUBCUT (02:15)
[2023-11-19 04:01] VITALS: BP 100/63; PULSE 76; RESP 18; TEMP 36.8; O2SAT 91
[2023-11-19 05:30] LABS: Basophils % 0.4 %; Eosinophils # 1.7 10^3/uL (0.0-0.8); Eosinophils % 15.4 %; Hematocrit 24.8 % (36-47); Lymphocytes # 1.5 10^3/uL (0.8-4.8); Lymphocytes % 13.1 %; Mean Corpuscular HGB Conc 33.5 g/dL (30-55); Mean Corpuscular Hemoglobin 33.1 pg (27-33); Mean Corpuscular Volume 98.8 fl (85-98); Mean Platelet Volume 10.1 fL (7.4-10.4); Monocytes % 9.3 %; Nucleated Red Blood Cells % 0 %; Platelet Count 222 10^3/cmm (157-399); Red Blood Count 2.51 10^6/uL (3.85-5.65); White Blood Count 11.14 10^3/uL (3.29-11.43)
[2023-11-19 05:56] LABS: Anion Gap 15.1 (5-19); Blood Urea Nitrogen 10 mg/dL (8-23); Calcium 8.2 mg/dL (8.5-10.5); Carbon Dioxide 23 mmol/L (22-29); Chloride 93 mmol/L (98-107); Creatinine Clr Calc Pharmacy 61.6079; Glucose 167 mg/dL (65-115); Osmolality Calculated 267 mOsm/kg (285-295); Potassium 4.1 mmol/L (3.5-5.1); Sodium 127 mmol/L (136-145)
[2023-11-19] MEDS: sucralfate 1 gm Tablet PO (06:06)
[2023-11-19 06:37] LABS: Glucose Point of Care 188 mg/dL (70-110)
[2023-11-19 08:23] VITALS: BP 112/69; PULSE 75; RESP 18; TEMP 36.3; O2SAT 94
[2023-11-19] MEDS: insulin lispro 100 unit/1 mL SUBCUT (08:35)
[2023-11-19] MEDS: docusate sodium 100 mg Capsule PO (08:35)
[2023-11-19] MEDS: calcium carb-vit d 600mg/400unit 1 Tablet 1 EACH PO (08:35)
[2023-11-19] MEDS: multivitamin therapeutic Tablet 1 TAB PO (08:35)
[2023-11-19] MEDS: sodium chloride 1 gm Tablet PO (08:35)
[2023-11-19] MEDS: pantoprazole DR 40 mg Tablet PO (08:35)
[2023-11-19] MEDS: iron polysaccharide complex 150 mg Capsule PO (08:36)
[2023-11-19] MEDS: sennosides-docusate Tablet 1 TAB PO (08:36)
[2023-11-19] MEDS: FUROsemide 20 mg Tablet PO (08:36)
[2023-11-19] MEDS: oxyCODONE 5 mg IR Tab/Cap PO (08:41)
--- NOTE | 2023-11-19 09:38 | PC.SOCIAL ---
IMM Update pg 2 of IMM updated and reviewed w/ patient. Copy provided and copy dated, initialed and placed in chart.
--- NOTE | 2023-11-19 10:39 | P.DS_ITS ---
Discharge Providers Date of Admission: 11/12/23 15:29 Date of Discharge: November 19, 2023 Attending Provider at Admission: Susan Ellis MD Attending Provider at Discharge: Billy Saez MD Primary Care Provider: Ryann Tovar MD Diagnoses at Discharge Discharge Diagnosis (1) Closed intertrochanteric fracture of right hip: Status: Acute Qualifiers: Encounter type: initial encounter Fracture alignment: nondisplaced Qualified Code(s): S72.144A - Nondisplaced intertrochanteric fracture of right femur, initial encounter for closed fracture Reason for Visit Reason for Visit: Fall Hospital Course Hospital Course 83-year female who present to the hospital after sustaining a fall at home, she was diagnosed with hip fracture, Dr. Valle was consulted, she went for intervention ORIF cephalomedullary nail next day, before intervention I requested stat echo and cardiac stress test which showed artifact, there was no wall motion abnormality, she was deemed at moderate risk for perioperative mortality morbidity and complications, this was conveyed to the patient, her family and the surgeon, patient did not express any complications during or after her hip surgery, patient was supposed to get echo and stress test done on Friday because she experienced 1 episode of chest pain a week before her hip fracture and a fall, patient did really good in perioperative period, she was retaining urine Randhawa catheter had to be retained for an extra day, her pain was well-managed on opioids, she did not express any constipation, was getting bowel movement on daily basis. She did well with PT. Patient wanted short-term rehab, we looked into [facility] placement. Patient was complaining of low appetite, gastric/epigastric pain on eating, concern for gastric ulcer, I have asked her to follow-up with general surgery outpatient or PCP for endoscopy for now I have put on sucralfate and Protonix. Her p.o. intake has been very poor, I had to give her IV fluids for at least 2 to 3 days. Nephro was consulted who put her on fluid restriction, gave her Lasix along salt tablets. Her sodium improved 126. Hemoglobin remained stable, patient had a bowel movement with use of enema before discharge. She is hemodynamically stable. Physical Exam Narrative: Sitting comfortably Hemodynamically stable Pleasant and cooperative Nonfocal neuroexam Abdomen soft S1, S2 Urinary Catheter Management: Randhawa: Cath Placed During This Visit: yes, but has since been removed by the nurse Reason for Continuing Indwelling Catheter: Other Urinary Catheter Date of Insertion: 11/15/23 Urinary Catheter Time of Insertion: 03:36 Date Urinary Catheter Removed: 11/16/23 Time Urinary Catheter Discontinued: 21:00 Discharge Data Studies Completed and Pending Completed Studies During Hospitalization Category Date Time Status CT cervical spine wo con [CT cervical spin wo con* Cat Scan 11/12/23 13:13 Completed [id number]] Urgent CT head wo con* [id number] Urgent Cat Scan 11/12/23 13:14 Completed Sestamibi Stress Test Request Routine Exams 11/12/23 18:55 Completed XR chest 1V portable [id number] Stat Exams 11/12/23 14:56 Completed XR femur RT min 2V* [id number] Routine Exams 11/13/23 14:29 Completed XR femur RT min 2V* [id number] Stat Exams 11/12/23 14:53 Completed XR hip RT 2-3V wo/w pel* [id number] Stat Exams 11/12/23 13:13 Completed XR knee RT 3V* [id number] Stat Exams 11/12/23 14:53 Completed XR pelvis 1-2V* [id number] Stat Exams 11/12/23 14:53 Completed NM newton perf SPECT r/s* [id number] Routine Nuc Med 11/13/23 18:55 Completed CV. echo complete* [id number] Stat Ultrasound 11/12/23 18:29 Completed Pending at discharge Category Date Time Status Basic Metabolic Panel AM LABS Lab 11/17/23 06:42 Received Complete Blood Count w/Auto AM LABS Lab 11/17/23 06:42 Results Radiology Impressions Cervical Spine CT 11/12/23 13:13 IMPRESSION: 1. No evidence of acute fracture or dislocation. 2. Ovoid soft tissue nodule along the LEFT false vocal cord in the paraglottic fat measuring 11 x 10 x 18 mm suspicious for neoplasm in a patient this age. Recommend ENT consultation and further evaluation with endoscopy. Hip/Pelvis X-Ray 11/12/23 13:13 IMPRESSION: Comminuted intertrochanteric fracture of the right hip Head CT 11/12/23 13:14 IMPRESSION: 1. No evidence of intracranial hemorrhage or mass effect. 2. Mild small vessel changes with moderate parenchymal volume loss. 3. LEFT maxillary sinusitis partially visualized. 4. No acute intracranial findings. Knee X-Ray 11/12/23 14:53 IMPRESSION: Chronic osteoarthritis of the right knee without fracture Pelvis X-Ray 11/12/23 14:53 IMPRESSION: Intertrochanteric fracture of the right hip. No other pelvic fractures are identified Chest X-Ray 11/12/23 14:56 IMPRESSION: No acute findings. Femur X-Ray 11/13/23 14:29 Impression: Internal fixation of right hip intertrochanteric fracture. Laboratory Results WBC 12.57 10^3/uL (3.29-11.43) H 11/16/23 04:58 RBC 2.63 10^6/uL (3.85-5.65) L 11/16/23 04:58 Hgb 8.70 g/dL (11.27-16.99) L 11/16/23 04:58 Hct 24.8 % (36-47) L 11/16/23 04:58 MCV 94.3 fl (85-98) 11/16/23 04:58 MCH 33.1 pg (27-33) H 11/16/23 04:58 MCHC 35.1 g/dL (30-55) 11/16/23 04:58 RDW 13.0 % (12.1-15.1) 11/16/23 04:58 Plt Count 150 10^3/cmm (157-399) L 11/16/23 04:58 MPV 11.0 fL (7.4-10.4) H 11/16/23 04:58 Neut % (Auto) 68.9 % 11/16/23 04:58 Lymph % (Auto) 13.6 % 11/16/23 04:58 Ada % (Auto) 9.2 % 11/16/23 04:58 Eos % (Auto) 7.7 % 11/16/23 04:58 Baso % (Auto) 0.2 % 11/16/23 04:58 Neut # (Auto) 8.66 10^3/uL (1.8-7.7) H 11/16/23 04:58 Lymph # (Auto) 1.7 10^3/uL (0.8-4.8) 11/16/23 04:58 Ada # (Auto) 1.2 10^3/uL (0.2-0.9) H 11/16/23 04:58 Eos # (Auto) 1.0 10^3/uL (0.0-0.8) H 11/16/23 04:58 Baso # (Auto) 0.0 10^3/uL (0.0-0.1) 11/16/23 04:58 Nucleated RBC % (auto) 0 % 11/16/23 04:58 Nucleated RBCs # 0.0 /100WBC 11/16/23 04:58 PT 13.60 SECONDS (12.1-14.9) 11/12/23 13:27 INR 1.01 (0.8-1.2) 11/12/23 13:27 APTT 30.3 SECONDS (23.9-36.7) 11/12/23 13:27 Sodium 124 mmol/L (136-145) L 11/16/23 04:58 Potassium 4.6 mmol/L (3.5-5.1) 11/16/23 04:58 Chloride 91 mmol/L (98-107) L 11/16/23 04:58 Carbon Dioxide 21 mmol/L (22-29) L 11/16/23 04:58 Anion Gap 16.6 (5-19) 11/16/23 04:58 BUN 22 mg/dL (8-23) 11/16/23 04:58 Creatinine 0.9 mg/dL (0.5-0.9) 11/16/23 04:58 GFR Calculation Not Reportable 11/16/23 04:58 Glucose 187 mg/dL (65-115) H 11/16/23 04:58 POC Glucose 184 mg/dL (70-110) H 11/17/23 06:26 Calculated Osmolality 266 mOsm/kg (285-295) L 11/16/23 04:58 Calcium 8.5 mg/dL (8.5-10.5) 11/16/23 04:58 Magnesium 1.8 mg/dL (1.7-2.3) 11/13/23 05:57 Total Bilirubin 0.4 mg/dL (0.15-1.2) 11/12/23 13:27 AST 21 U/L (0-32) 11/12/23 13:27 ALT 29 U/L (0-33) 11/12/23 13:27 Alkaline Phosphatase 90 U/L (35-105) 11/12/23 13:27 Creatine Kinase 134 U/L (26-192) 11/12/23 13:27 C-Reactive Protein 21.8 mg/L (0.0-4.9) H 11/13/23 05:57 Total Protein 7.5 g/dL (6.6-8.7) 11/12/23 13:27 Albumin 4.1 g/dL (3.5-5.2) 11/12/23 13:27 Globulin 3.4 g/dL (1.3-4.6) 11/12/23 13:27 Urine Color Light yellow (Yellow) 11/12/23 17:24 Urine Appearance Cloudy (CLEAR) A 11/12/23 17:24 Urine pH 7 (5-7) 11/12/23 17:24 Ur Specific North 1.015 (1.005-1.030) 11/12/23 17:24 Urine Protein Neg (Negative) 11/12/23 17:24 Urine Glucose (UA) Norm (Normal) 11/12/23 17:24 Urine Ketones Negative (Negative) 11/12/23 17:24 Urine Blood Neg (Negative) 11/12/23 17:24 Urine Nitrate Positive (Negative) H 11/12/23 17:24 Urine Bilirubin Neg (Negative) 11/12/23 17:24 Urine Urobilinogen Norm mg/dL (Negative) 11/12/23 17:24 Ur Leukocyte Esterase Negative (Negative) 11/12/23 17:24 Urine RBC 0-4 /hpf (0-2) H 11/12/23 17:24 Urine WBC 0-4 /hpf (0-5) H 11/12/23 17:24 Ur Squamous Epith Cells None /hpf (0-5) 11/12/23 17:24 Ur Transition Epith Cell 0-4 /hpf 11/12/23 17:24 Amorphous Sediment Not Reportable 11/12/23 17:24 Urine Bacteria 3+ /hpf (NONE) H 11/12/23 17:24 Urine Mucus Trace /hpf 11/12/23 17:24 Blood Type O Positive 11/12/23 17:15 Rho(D) Type Rh positive 11/12/23 17:15 Antibody Screen Negative 11/12/23 17:15 Vitals Last Vital Signs Temp 98.9 F 11/16/23 23:55 Pulse 73 11/17/23 05:00 Resp 17 11/17/23 05:00 BP 110/66 11/17/23 05:00 Pulse Ox 90 11/17/23 05:00 O2 Del Method Room Air 11/16/23 15:36 O2 Flow Rate 94 11/15/23 19:57 Discharge Plan Discharge Patient Disposition: Home Health Service Condition: Stable Prescriptions: New ondansetron 4 mg tablet,disintegrating 4 mg PO Q8H PRN (Reason: nausea and vomiting) 3 Days Qty: 9 0RF enoxaparin 30 mg/0.3 mL syringe 30 mg SUBCUT DAILY 35 Days Qty: 10.5 0RF oxycodone 5 mg tablet 5 mg PO Q6H PRN (Reason: pain postop) 7 Days Qty: 28 0RF sucralfate 1 gram Tablet 1 g PO AC&BEDTIME Qty: 30 0RF sodium chloride 1,000 mg Tablet,Soluble 1,000 mg PO BID Qty: 6 0RF Lasix 20 mg tablet 20 mg PO DAILY Qty: 10 0RF Continued propranolol 80 mg capsule,extended release 24hr 80 mg PO BEDTIME levothyroxine 137 mcg tablet 137 mcg PO QAM pantoprazole 40 mg tablet,delayed release (DR/EC) 40 mg PO QPM Qty: 60 0RF aspirin 81 mg Tablet,Delayed Release (Dr/Ec) 81 mg PO QAM acetaminophen 500 mg Tablet 1,000 mg PO Q6H PRN (Reason: Pain) rosuvastatin 5 mg tablet 5 mg PO BEDTIME diclofenac sodium [Aspercreme Arthritis Pain] 1 % Gel 2 g TOPICAL QID PRN (Reason: Pain) Rx Instructions: apply to single elbow, wrist or hand; for hand includes palm/fingers/back of hand PreserVision AREDS-2 250-90-40-1 mg Capsule 1 tab PO BID Ozempic 2 mg/dose (8 mg/3 mL) pen injector 2 mg SUBCUT Q7D Rx Instructions: ON FRIDAY Lantus Solostar U-100 Insulin 100 unit/mL (3 mL) insulin pen 48 unit SUBCUT QAM Held losartan 100 mg tablet 100 mg PO QAM Hold Instructions: Resume on 11/20/23. amlodipine 5 mg tablet 5 mg PO QPM Hold Instructions: Resume on 11/20/23. Discontinued alprazolam 0.25 mg tablet 0.5 mg PO BEDTIME Discharge Orders: Discharge Order (Routine); Ordered 11/19/23 Ordered By: Billy Saez Other Ambulatory Orders: DME: Walker (Order) Location: None Selected Ordered By: Billy Saez Basic Metabolic Panel (Routine) Timeframe: 3 Days Facility: [facility] - Location: Lab - Main Lab Ordered By: Billy Saez Referrals: [facility] ([facility]) [Outside] Vinh Valle DO [Physician] - 12/02/23 10:30 am () Ryann Tovar MD [Primary Care Provider] - 11/21/23 11:20 am (please arrive by 11:00 to complete any paperwork the clinic may need. ) Discharge Diet: Diabetic Patient Instructions: Furosemide (By mouth), Sucralfate (By mouth), Oxycodone/Acetaminophen (By mouth), Ondansetron (By mouth), Enoxaparin (By injection), Sodium Chloride (By mouth), ORIF of Hip Fracture (DC), Opioid Safety Activity Restrictions/Additional Instructions: Orthopedic discharge instructions: Weightbearing as tolerated to the operative extremity Ice as needed for pain and swelling Encourage knee and hip range of motion as tolerated PT/OT Take pain medication as prescribed Take antinausea medication as needed Supplement with Citracal vitamin D for bone health and healing Take Lovenox (blood thinner) as prescribed for blood clot prevention Take Colace as needed for constipation Leave Silverlon dressings on and in place for 7 days. After this they may be removed you may shower/rinse incisions with warm soapy water, pat dry redress with a dry dressing. Okay to sponge bath/shower with Silverlon dressings as they should be waterproof however if they do get saturated or wet please take these off dry the incision and redressed with a new dry sterile bandage. Follow-up in the orthopedic office with Dr. Valle in 2 weeks for repeat x-rays and incision check/staple removal Contact the office for any questions or concerns (i.e. increasing redness and drainage around the incision, fevers, or chills, or severe worsening in pain/change in symptoms) Discharge Attestations Time Spent in Discharge Care*: greater than 30 min Quality Metrics Clinical Quality Measures [ No reported AMI, CVA or VTE this stay] Coding Level of Care Code Acute Code for Chg Fwd Diagnoses Closed intertrochanteric fracture of right hip S72.144A Encounter type: initial encounter Fracture alignment: nondisplaced
--- NOTE | 2023-11-19 10:41 | PC.OT ---
Attempted to see patient for OT. Patient is discharging and requested a hold on OT today due to fatigue.
[2023-11-19 11:44] VITALS: BP 112/69; PULSE 75; RESP 18; O2SAT 94
--- NOTE | 2023-11-19 11:44 | PC.NURSE ---
Patient and family verbalized understanding of discharge instructions, home medications, and follow up appointments.
--- NOTE | 2023-11-19 12:10 | US_ITS ---
WS: [id number] RIGHT UPPER QUADRANT ULTRASOUND HISTORY: Midepigastric pain COMPARISON: CT angiogram 11/18/2023 Liver: 19.6 cm in length. Mildly enlarged liver. No mass. Normal portal vein waveform. Portal Vein: Normal hepatopetal flow with monophasic waveform. Gallbladder: Gallbladder is mildly hydropic. There is a sludge ball present in the dependent portion of the gallbladder. No increased vascularity. There is mild gallbladder wall thickening. Negative Mur phy sign. CBD: 0.8 cm Pancreas: Echogenic pancreas. Common bile duct at the pancreatic head is normal. Right kidney: 10.2 cm in length. Normal size and echogenicity. No hydronephrosis or mass. Aorta and IVC: Unremarkable abdominal aorta and IVC. No ascites. US/US gall bladder 19081 IMPRESSION: 1. Mildly hydropic gallbladder with sludge ball. No cholelithiasis. No Montez sign was evident. There is mild gallbladder wall thickening. 2. Common bile duct is mildly dilated.
== END 2023-11-19 11:45 | disposition home health service (06) | DRG 481 ==
LOC: ER 14:56 → MEDSURG 15:30
PROVIDERS: Student in an Organized Health Care Education/Training Program; Admitting Provider Internal Medicine; Emergency Provider Physician Assistant; PCP Family Medicine; Visit Provider Internal Medicine
PROC: 0QS636Z Reposition Right Upper Femur with Intramedullary Internal Fixation Device, Percutaneous Approach (ICD-10-PCS; CPT 27245; principal; 2023-11-13 11:45)
DX: S72.141A Displaced intertrochanteric fracture of right femur, initial encounter for closed fracture (principal); D62 Acute posthemorrhagic anemia; E87.1 Hypo-osmolality and hyponatremia; W18.30XA Fall on same level, unspecified, initial encounter; E11.51 Type 2 diabetes mellitus with diabetic peripheral angiopathy without gangrene; I16.0 Hypertensive urgency; E86.0 Dehydration; R11.0 Nausea; R10.9 Unspecified abdominal pain; Z79.82 Long term (current) use of aspirin; Z79.4 Long term (current) use of insulin; Z79.85 Long-term (current) use of injectable non-insulin antidiabetic drugs
CPT/HCPCS: 36415; 36416; 51702; 70450; 71045; 72125; 72170; 73502; 73552; 73562; 75635; 76000; 76705; 78452; 80048; 80053; 81001; 82436; 82550; 82962; 83735; 83930; 83935; 84133; 84295; 84300; 84550; 85014; 85018; 85025; 85610; 85730; 86140; 86850; 86900; 87077; 87086; 87186; 93017; 93306; 94640; 96372; 96374; 96375; 96376; 97110; 97116; 97162; 97166; 97530; 99285; A9500; C1713; J0131; J0690; J1170; J1650; J1815; J1885; J2270; J2371; J2405; J2704; J2785; J3010; J7030; J7050; J7060; P9045; Q9967

== ENCOUNTER → 2023-12-02 10:43 | Outpatient (BNVA) | payer MEDICARE, MEDICAID, SELFPAY | PROVIDERS: PCP Family Medicine; Visit Provider Physician Assistant | DX: Z98.890 Other specified postprocedural states; Z87.81 Personal history of (healed) traumatic fracture | CPT/HCPCS: 73552; 99024 ==

== ENCOUNTER → 2024-01-06 11:02 | Outpatient (BNVA) | payer MEDICARE, MEDICAID, SELFPAY | PROVIDERS: PCP Family Medicine; Visit Provider Physician Assistant | DX: Z98.890 Other specified postprocedural states (principal); S72.144D Nondisplaced intertrochanteric fracture of right femur, subsequent encounter for closed fracture with routine healing; X58.XXXD Exposure to other specified factors, subsequent encounter | CPT/HCPCS: 73552; 99024 ==

== ENCOUNTER → 2024-01-15 14:45 | Outpatient (BNVA) | payer MEDICARE, MEDICAID, SELFPAY | PROVIDERS: Visit Provider Internal Medicine | DX: R07.9 Chest pain, unspecified (principal); R06.09 Other forms of dyspnea | CPT/HCPCS: 99214 ==

== ENCOUNTER → 2024-07-29 09:16 | Outpatient (BNVA) | payer MEDICARE, MEDICAID, SELFPAY | PROVIDERS: PCP Family Medicine; Visit Provider Student in an Organized Health Care Education/Training Program | DX: Z98.890 Other specified postprocedural states (principal); Z87.81 Personal history of (healed) traumatic fracture; M25.551 Pain in right hip; R03.0 Elevated blood-pressure reading, without diagnosis of hypertension | CPT/HCPCS: 73502; 99213 ==

== ENCOUNTER → 2024-10-14 14:35 | Outpatient (BNVA) | payer MEDICARE, MEDICAID, SELFPAY | PROVIDERS: PCP Family Medicine; Visit Provider Internal Medicine | DX: R07.9 Chest pain, unspecified (principal); R06.00 Dyspnea, unspecified; Z79.82 Long term (current) use of aspirin | CPT/HCPCS: 99213 ==